=== PATIENT | male | born 1930 | race Caucasian/White ===

== ENCOUNTER 2016-09-23 08:04 | Inpatient (IN) | payer MEDICARE, BC ==
--- NOTE | 2016-09-23 08:18 | Emergency Department Record ---
History of Present Illness - General Chief complaint: Weakness Stated complaint: WEAKNESS Time Seen by Provider: 09/23/16 08:16 Source: Patient Mode of Arrival: EMS Limitations: No limitations - History of Present Illness Initial comments: The patient is here due to feeling generalized weakness and no energy for one day since mowing the lawn yesterday. He denies any recent illness or any fall or trauma. He also denies any CP, SOB, SONIA, AP, fever, nausea, vomiting, or dysuria. The patient denies any new medicines, or any pain or discomfort. MD Complaint: Generalized weakness, Lack of energy Onset/Timin -: Days(s) Location: Generalized Associated Symptoms: Denies other symptoms - [place] Coma Scale Eye Response: (4) Open spontaneously Motor Response: (6) Obeys commands Verbal Response: (5) Oriented Sunday Total: 15 - Related Data Home Medications Medication Instructions Recorded Confirmed Last Taken Amlodipine Besylate [Norvasc] 5 mg PO DAILY 09/07/15 09/23/16 09/23/16 Clopidogrel Bisulfate [Plavix] 75 mg PO DAILY 09/07/15 09/23/16 09/23/16 Levothyroxine Sodium [Synthroid] 100 mcg PO DAILY 09/07/15 09/23/16 09/23/16 Lisinopril [Zestril] 20 mg PO DAILY 09/07/15 09/23/16 09/22/16 Aspirin [Aspirin EC] 81 mg PO DAILY 09/23/16 09/23/16 09/23/16 Atorvastatin Calcium [Lipitor] 40 mg PO DAILY 09/23/16 09/23/16 09/23/16 Timolol [Betimol] 5 ml OP DAILY 09/23/16 09/23/16 09/23/16 Allergies Allergy/AdvReac Type Severity Reaction Status Date / Time No Known Drug Allergies Allergy Verified 09/09/15 17:27 Travel Screening - Travel/Exposure Within Last 30 Days Have you traveled within the last 30 days?: No - Travel/Exposure Within Last Year Have you traveled outside the [place] in the last year?: No - Additonal Travel Details Have you been exposed to anyone with a communicable illness?: No - Travel Symptoms Symptom Screening: None Review of Systems Constitutional: Reports: Malaise. Denies: Chills, Fever Eyes: Denies: Eye discharge ENT: Denies: Congestion Respiratory: Denies: Cough, Dyspnea Cardiovascular: Denies: Chest pain Endocrine: Reports: Fatigue Gastrointestinal: Denies: Abdominal pain, Diarrhea, Nausea, Vomiting Genitourinary: Denies: Dysuria Musculoskeletal: Denies: Arthralgia Skin: Denies: Bruising Past Medical History - SOCIAL HISTORY Smoking Status: Never smoker - RESPIRATORY Hx Respiratory Disorders: No - CARDIOVASCULAR Hx Cardio Disorders: Yes Hx Abnormal EKG: Yes Hx Heart Attack: Yes Hx Hypertension: Yes - NEURO Hx Neuro Disorders: No - GI Hx GI Disorders: No - Hx Genitourinary Disorders: No - ENDOCRINE Hx Endocrine Disorders: No - MUSCULOSKELETAL Hx Musculoskeletal Disorders: Yes Hx Arthritis: Yes - PSYCH Hx Psych Problems: No - HEMATOLOGY/ONCOLOGY Hx Hematology/Oncology Disorders: No Family Medical History Any Significant Family History?: No Physical Exam - General General Appearance: Alert, Oriented x3, Cooperative, No acute distress - Head Head exam: Atraumatic, Normocephalic, Normal inspection - Eye Eye exam: Normal appearance, PERRL - ENT Throat exam: Normal inspection. negative: Tonsillar erythema, Tonsillar exudate - Neck Neck exam: Normal inspection, Full ROM. negative: Tenderness - Respiratory Respiratory exam: Normal lung sounds bilaterally. negative: Respiratory distress - Cardiovascular Cardiovascular Exam: Regular rate, Normal rhythm, Normal heart sounds - GI/Abdominal GI/Abdominal exam: Soft, Normal bowel sounds. negative: Tenderness - Extremities Extremities exam: Normal inspection, Full ROM, Normal capillary refill. negative: Tenderness - Back Back exam: Reports: Normal inspection - Neurological Neurological exam: Abnormal gait (The patient is not able to get up and walk without falling.), Alert, Motor sensory deficit (There is no weakness on exam but there is mild abnormal finger to nose examinations with the L arm.). negative: Altered, Normal gait Course Vital Signs 09/23/16 08:08 Temperature 97.7 F Pulse Rate 60 Respiratory 20 Rate Blood Pressure 141/63 Pulse Ox 98 - Reevaluation(s) Reevaluation #1: The patient is doing better. He denies any pain or discomfort. On exam he is still unable to walk and feels very unsteady. 09/23/16 10:03 Reevaluation #2: The patient is doing very well at this time but he is still unable to walk without falling. 04/24/17 10:11 Reevaluation #3: The patient denies any new issues or problems. I did discuss the case with Lizeth VELASQUEZ) and she does accept the patient to the hospital for Dr. Ames. 09/23/16 11:13 Medical Decision Making - Data Complexity MDM Data: Labs Ordered and/or Reviewed, X-Ray Ordered and/or Reviewed - Lab Data Result diagrams: 09/23/16 09:17 09/23/16 08:37 - EKG Data -: EKG Interpreted by Me EKG: No Acute Changes, Unchanged From Previous - Radiology Data Radiology results: Report reviewed (CXR: No acute changes. Head CT: No acute changes.) Disposition Disposition: Admit Clinical Impression: Acute CVA (cerebrovascular accident) Disposition: Still a Patient at [facility] Decision to Admit: Admit from ER Decision to Admit Date: 09/23/16 Decision to Admit Time: 11:14 Accepting Physician: Hui Time Discussed w/Accepting Physician: 11:14 Condition: (1) Good Time of Disposition: 11:14
[2016-09-23] MEDS ORDERED: 0.9 % SODIUM CHLORIDE 1,000 ML BAG IV ONE (08:34)
[2016-09-23 09:22] LABS: BASO % 0.5 % (0-6); GRAN % 49.6 % (47-80); HEMATOCRIT 36.4 % (42.0-52.0); HEMOGLOBIN 12.3 gm/dl (14.0-18.0); LYMPH % 28.2 % (16-45); MEAN CELL VOLUME 93.1 fl (81-97); MEAN CORPUSCULAR HEMOGLOBIN 31.4 pg (27-33); MEAN CORPUSCULAR HGB CONC 33.8 g/dl (32-36); MEAN PLATELET VOLUME 9.4 fl (7.4-10.4); MONO % 14.7 % (0-9); PLATELET COUNT 228 K/uL (130-400); RED BLOOD COUNT 3.91 M/uL (4.40-5.70); RED CELL DISTRIBUTION WIDTH 12.8 % (11.5-14.5); WHITE BLOOD COUNT W/O DIFF 6.6 K/uL (4.2-12.2)
[2016-09-23 09:39] LABS: BLOOD UREA NITROGEN 16 mg/dL (9-20); CREATININE 0.8 mg/dL (0.66-1.25); EST GLOMERULAR FILTRATION RATE > 60 ml/min; GLUCOSE,RANDOM 99 mg/dL (70-110)
[2016-09-23 09:39] LABS: URINE APPEARANCE CLEAR; URINE BILIRUBIN NEGATIVE (NEGATIVE); URINE BLOOD NEGATIVE (NEGATIVE); URINE COLOR YELLOW; URINE GLUCOSE (UA) NEGATIVE (NEGATIVE); URINE KETONE NEGATIVE (NEGATIVE); URINE LEUKOCYTE ESTERASE NEGATIVE (NEGATIVE); URINE NITRITE NEGATIVE (NEGATIVE); URINE PROTEIN NEGATIVE (NEGATIVE); URINE UROBILINOGEN 0.2 E.U./dL (0.20 - 1.00)
[2016-09-23 09:49] LABS: CKMB < 0.2 ug/L (0-6)
[2016-09-23 09:50] LABS: TROPONIN I < 0.012 ng/mL (0.00-0.034)
[2016-09-23 09:56] LABS: CREATINE PHOSPHOKINASE 42 U/L (55-170)
[2016-09-23] MEDS ORDERED: ASPIRIN 325 MG TABLET PO ONE (10:55)
--- NOTE | 2016-09-23 13:25 | History & Physical ---
History of Present Illness - Date of Service Date of Service for History & Physical: 09/23/16 - History of Present Illness Admitting Diagnosis: 1. Generalized weakness with inability to walk, R/O CVA. History of Present Illness: 86 yo male admitted for ataxia. PMHx of HTN, hypothyroidism, high cholesterol, [place] 30 years ago (s/p stent), BPH, and CVA w/o deficits about 10 years ago. History was obtained from patient who is A&Ox3. Patient presented to the ED by EMS due to generalized weakness and inability to ambulate. Onset was this morning. Patient states he cut a few acres of his lawn last night. He felt well until he woke up this morning. Unknown aggravating factors. Alleviated by nothing. Associated symptoms include headache last night and this morning. Upon presentation, VSS. WBC 6.6, hgb 12.3 , hct 36.4, plt 228. CMP relatively unremarkable. CE's negative x 1. UA unremarkable. EKG: sinus rhythm, unchanged from 2012. CXR: NAP. Head CT: generalized atrophy, o/w negative. Bolus of IVs given in the ER along with 325 mg of ASA. Patient admitted for further medical management. This afternoon, patient sitting up in bed eating lunch. He denies any concerns at this time. States he's still unable to stand up due to abnormal gait and balance. He denies any confusion, vision change, feeling like the room's spinning, abdominal pain, change in bowel habits, blood in stool, n/v, fever, chills, CP, SOB, cough, lightheadedness, dizziness or headache. States he experienced a headache last night and then earlier this morning. He denies any hospitalizations w/in the past 6 months. He saw his PCP on 09/19/16. No recent travel, sick contacts or changes to medications. Lives independently. Denies recent falls. He uses a cane at home. Has family in [place], though not close by. States he believes he had a stroke about 10 years ago. 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 14:00: patient ambulated to the restroom w/ walker and two person assist. He felt as if his balance had improved with use of the walker. PCP: Dr. Negrete. Travel Screening - Travel/Exposure Within Last 30 Days Have you traveled within the last 30 days?: No - Travel/Exposure Within Last Year Have you traveled outside the [place] in the last year?: No - Additonal Travel Details Have you been exposed to anyone with a communicable illness?: No - Travel Symptoms Symptom Screening: None Review of Systems Constitutional: Reports: Malaise. Denies: Chills, Fever Eyes: Denies: Eye discharge ENT: Denies: Congestion Respiratory: Denies: Cough, Dyspnea Cardiovascular: Denies: Chest pain Endocrine: Reports: Fatigue Gastrointestinal: Denies: Abdominal pain, Diarrhea, Nausea, Vomiting Genitourinary: Denies: Dysuria Musculoskeletal: Denies: Arthralgia Skin: Denies: Bruising Neurological: Reports: Abnormal gait, Weakness. Denies: Confusion, Headache, Vertigo Past Medical History - SOCIAL HISTORY Smoking Status: Never smoker - RESPIRATORY Hx Respiratory Disorders: No - CARDIOVASCULAR Hx Cardio Disorders: Yes Hx Abnormal EKG: Yes Hx Heart Attack: Yes Hx Hypertension: Yes - NEURO Hx Neuro Disorders: No - GI Hx GI Disorders: No - Hx Genitourinary Disorders: No - ENDOCRINE Hx Endocrine Disorders: No - MUSCULOSKELETAL Hx Musculoskeletal Disorders: Yes Hx Arthritis: Yes - PSYCH Hx Psych Problems: No - HEMATOLOGY/ONCOLOGY Hx Hematology/Oncology Disorders: No Family Medical History Any Significant Family History?: No H&P Meds/Allergies - Allergies Allergies: Allergies Allergy/AdvReac Type Severity Reaction Status Date / Time No Known Drug Allergies Allergy Verified 09/09/15 17:27 - Home Medications Home Medications Medication Instructions Recorded Confirmed Last Taken Amlodipine Besylate [Norvasc] 5 mg PO DAILY 09/07/15 09/23/16 09/23/16 Clopidogrel Bisulfate [Plavix] 75 mg PO DAILY 09/07/15 09/23/16 09/23/16 Levothyroxine Sodium [Synthroid] 100 mcg PO DAILY 09/07/15 09/23/16 09/23/16 Lisinopril [Zestril] 20 mg PO DAILY 09/07/15 09/23/16 09/22/16 Aspirin [Aspirin EC] 81 mg PO DAILY 09/23/16 09/23/16 09/23/16 Atorvastatin Calcium [Lipitor] 40 mg PO DAILY 09/23/16 09/23/16 09/23/16 Timolol [Betimol] 5 ml OP DAILY 0409/23/16 09/23/16 - Active Medications Active Medications: Current Medications Acetaminophen (Tylenol 500mg Tab) 500 mg PO Q6H PRN PRN Reason: PAIN/TEMP Amlodipine Besylate (Norvasc) 5 mg PO BID [facility] Aspirin (Aspirin, Regular) 325 mg PO DAILY [facility] Atorvastatin Calcium (Lipitor) 40 mg PO QHS [facility] Clopidogrel Bisulfate (Plavix) 75 mg PO DAILY [facility] Latanoprost (Xalatan) 1 drop OPTH QHS [facility] Levothyroxine Sodium (Synthroid) 100 mcg PO DAILYTHY [facility] Lisinopril (Zestril) 20 mg PO DAILY [facility] Timolol Maleate (Timoptic) 1 drop OPTH DAILY [facility] Physical Exam - Vital Signs Vital Signs: Vital Signs - Last 24 Hrs Resp 09/23/16 12:35 20 - General General Appearance: Alert, Oriented x3, Cooperative, No acute distress Limitations: No limitations - Head Head exam: Atraumatic, Normocephalic, Normal inspection - Eye Eye exam: Normal appearance, PERRL - ENT Throat exam: Normal inspection. negative: Tonsillar erythema, Tonsillar exudate - Neck Neck exam: Normal inspection, Full ROM. negative: Tenderness - Respiratory Respiratory exam: Normal lung sounds bilaterally. negative: Respiratory distress - Cardiovascular Cardiovascular Exam: Regular rate, Normal rhythm, Normal heart sounds - GI/Abdominal GI/Abdominal exam: Soft, Normal bowel sounds. negative: Tenderness - Extremities Extremities exam: Normal inspection, Full ROM, Normal capillary refill. negative: Tenderness - Back Back exam: Reports: Normal inspection - Neurological Neurological exam: Abnormal gait (balance is good with walker and 2 person assist), Alert, Motor sensory deficit (There is no weakness on exam but there is mild abnormal finger to nose examinations with the L arm.). negative: Altered, Normal gait Results - Labs Result Diagrams: 09/23/16 09:17 09/23/16 08:37 VTE H&P Assessment - Risk for VTE Risk for VTE: Yes Risk Level: High (age, decreased mobility and potential CVA) Risk Assessment Date: 09/23/16 Risk Assessment Time: 13:00 VTE Orders Placed or Will Be Placed: Yes Plan - Inpatient Certification Inpatient Certification: Admit to inpatient care: Based on my medical assessment, after consideration of patient's risk factors (age, co-morbidities and patient presenting symptoms and acuity), I expect that this patient will remain in the hospital greater than or equal to two midnights and that the services needed warrant inpatient care because: Patient Risk Factors: [unable to ambulate, abnormal neurologic exam, weakness] Estimated length of stay: [48-72 hours] The patient may reasonably be expected to be discharged or transferred to a hospital within 96 hours after admission to [facility]. Services needed: [therapy, nursing, cardiac work up, telemetry] Post hospital care (if known): [inpatient rehab] I certify that my determination is in accordance with my understanding of Medicare requirements for reasonable and necessary inpatient services. 09/23/16 13:37 - Detailed Diagnosis and Plan (1) Weakness Current Visit: Yes Status: Acute Base Code: R53.1 - WEAKNESS Comment: 09/23/16: suspected acute cerebrovascular accident. Head CT negative. CE's negative x 1. EKG sinus rhythm, unchanged from 2012. Patient denying CP, SOB, confusion, fever, chills, upper/lower extremity weakness, vision changes, or room spinning. Patient unable to ambulate due to poor balance. Neurologic exam relatively unremarkable aside from abnormal gait. - continue home meds - ambulation as tolerated with walker and 2 person assist - PT/OT evaluation ordered - carotid dopplers & ECHO ordered (2) Acute CVA (cerebrovascular accident) Current Visit: Yes Status: Acute Base Code: I63.9 - CEREBRAL INFARCTION, UNSPECIFIED Comment: 09/23/16: suspected acute cerebrovascular accident. Head CT negative. CE's negative x 1. EKG sinus rhythm, unchanged from 2012. Patient denying CP, SOB, confusion, fever, chills, upper/lower extremity weakness, vision changes, or room spinning. Patient unable to ambulate due to poor balance. Neurologic exam relatively unremarkable aside from abnormal gait. - continue home meds - ambulation as tolerated with walker and 2 person assist - PT/OT evaluation ordered - carotid dopplers and ECHO ordered (3) DVT prophylaxis Current Visit: Yes Status: Acute Base Code: [id number] - Comment: 09/23/16: high risk: age, decreased mobility, possible CVA. patient ambulating to the rest room. received 325 mg of ASA in the ED. Will consider 40 mg of sq Lovenox daily if patient becomes less active. (4) Full code status Current Visit: Yes Status: Acute Base Code: Z78.9 - OTHER SPECIFIED HEALTH STATUS Comment: 09/23/16: patient will remain full code during his stay
[2016-09-23 13:41] LABS: CKMB < 0.2 ug/L (0-6); TROPONIN I < 0.012 ng/mL (0.00-0.034)
[2016-09-23] MEDS: ATORVASTATIN 20 MG TABLET PO SCH (22:00)
[2016-09-23] MEDS: AMLODIPINE BESYLATE 5MG TAB PO SCH (22:15)
[2016-09-23 23:12] LABS: CKMB < 0.2 ug/L (0-6); TROPONIN I < 0.012 ng/mL (0.00-0.034)
[2016-09-23] MEDS: LATANOPROST 0.005% OPTH SOLUTION 2.5ML BOTTLE OPTH SCH (23:57)
[2016-09-24] MEDS: LEVOTHYROXINE SODIUM 100 MCG TABLET PO SCH (06:48)
--- NOTE | 2016-09-24 07:13 | RADIOLOGY REPORT ---
EXAM: CHEST, TWO VIEWS HISTORY: GENERALIZED WEAKNESS AND DIFFICULTY IN BREATHING. PRIOR CORONARY ARTERY BYPASS GRAFT SURGERY. TECHNIQUE: Upright PA and lateral views of the chest were obtained. Comparison: None. FINDINGS: Post median sternotomy changes are identified. The heart is not enlarged and the pulmonary vasculature is nondilated. The lungs and pleural spaces are clear. There are degenerative changes of the visualized spine and shoulder girdles. IMPRESSION: 1. POST MEDIAN STERNOTOMY. 2. NO EVIDENCE OF ACUTE CARDIOPULMONARY DISEASE. JOB NUMBER: [id number] [facility]
--- NOTE | 2016-09-24 07:19 | CT SCAN REPORT ---
EXAM: CT OF THE HEAD WITHOUT CONTRAST HISTORY: LEFT SIDED WEAKNESS. DIZZINESS. ATAXIA. TECHNIQUE: Routine noncontrast CT examination of the head was obtained. Comparison: None. Hand dominance: Right. FINDINGS: Moderate dilatation of the subarachnoid spaces is demonstrated associated with mild ventriculomegaly. Moderate periventricular and subcortical white matter lucencies are scattered in each cerebral hemisphere, symmetrically distributed. No other area of abnormally increased or decreased attenuation is noted throughout the brain substance. No abnormal extraaxial fluid collection nor skull fracture is seen. There is atherosclerotic calcification of the distal internal carotid arteries and distal right vertebral artery. The visualized paranasal sinuses and mastoid air cells are clear. Post cataract surgery changes are noted bilaterally. The orbits are otherwise unremarkable. IMPRESSION: 1. NO CT EVIDENCE OF ACUTE MAJOR VESSEL INFARCT, INTRACRANIAL HEMORRHAGE, NOR MASS. 2. GENERALIZED ATROPHY. MODERATE WHITE MATTER LUCENCIES IN EACH CEREBRAL HEMISPHERE ARE NONSPECIFIC THOUGH LIKELY AREAS OF CHRONIC SMALL VESSEL ISCHEMIA. JOB NUMBER: [id number] [facility]
--- NOTE | 2016-09-24 07:26 | US CAROTID DOPPLER REPORT ---
EXAM: BILATERAL CAROTID DOPPLER ULTRASOUND HISTORY: DIZZINESS. TECHNIQUE: Transverse and longitudinal sonographic images of the cervical portions of the bilateral internal carotid arteries was performed. COMPARISON: None. FINDINGS: Imaging over the right ICA and distal CCA demonstrates moderate visible atheromatous calcification of the distal right CCA and carotid bifurcation. Imaging over the left demonstrates mild visible atheromatous calcification of the distal left ICA and left carotid bifurcation. No visible areas of severe stenosis. Doppler and spectral analysis with color flow was utilized. Biphasic and triphasic waveforms are present bilaterally. Normal antegrade flow in the vertebral arteries bilaterally. Velocities are as follows (in peak systolic velocity): Right ICA: 88 cm/s Right CCA: 145 cm/s Right vertebral artery: 50 cm/s Right ICA/CCA ratio: 0.6 Left ICA: 77 cm/s Left CCA: 85 cm/s Left vertebral artery: 34 cm/s Left ICA/CCA ratio: 0.9 IMPRESSION: ATHEROMATOUS CHANGES ARE VISIBLE BILATERALLY, WORSE ON THE RIGHT. VELOCITIES OF THE INTERNAL CAROTID ARTERIES CORRESPOND TO LESS THAN 50% LUMINAL NARROWING BILATERALLY. JOB NUMBER: [id number] [facility]
[2016-09-24] MEDS ORDERED: AMLODIPINE BESYLATE 5MG TAB PO SCH (10:00)
--- NOTE | 2016-09-24 10:07 | Rehab Evaluation ---
Patient Information - Patient Information Diagnosis: generalized weakness, inability to walk, r/o CVA Ordered Treatment: OT Evaluate and Treat Status: Initial Evaluation Surgery: No History: Detail (Pt presented to the ED on 09/23/16 with c/o generalized weakness and no energy x 1 day since mowing the lawn the previous day.) Past Medical/Surgical Hx: PAST MEDICAL/SURGICAL HISTORY Past Surgical History heart bypass, stents PMH - Respiratory Hx Respiratory Disorders No PMH - Cardiovascular Hx Cardiovascular Disorders Yes Hx Abnormal EKG Yes Hx Heart Attack Yes Hx Hypertension Yes Comment: stents, bipass surgery PMH - Neuro Hx Neurological Disorders No PMH - GI Hx Gastrointestinal Disorders No PMH - Hx Genitourinary Disorders No Patient PMH - Endocrine Hx Endocrine Disorders No PMH - Musculoskeletal Hx Musculoskeletal Disorders Yes Hx Arthritis Yes PMH - Psych Hx Psychiatric Problems No PMH - Hematology/Oncology Hx Hematology/Oncology No Disorders Premorbid Status: Detail (Pt lives alone in a one story house. He has 3-4 steps at the entrance with one handrailing. He has a tub/shower combination but usually sponge bathes at the sink. He has a standard height toilet, no grab bar. He uses a quad cane and has a 2 wheeled walker. He is responsible for all home mgmt, meal prep, laundry and yard work.) Precautions: [place], Fall - Time With Patient Total Time Spent With Patient (Min): 40 Treatment Procedures: Detail (OT eval moderate complexity) Subjective Information - Subjective Information Per Patient Objective Data - Pain Pain Present: No - Mental Status Patient Orientation: Oriented x3 - Visual Perception Appears within normal limits for therapeutic activities (Pt wears glasses for reading.) - ROM Within normal limits (Pardeep UE AROM WNL) - Strength/Tone Within normal limits (Pardeep UE MMT 4+/5 throughout) - Coordination Appears within normal limits for therapeutic activities (Fingertip to thumb opposition equal in pardeep hands.) - Bed Mobility Independent (Ind with supine to sit although pt had mild difficulty.) - Transfers Needs Assist (Contact guard assist for sit to stand transfer from EOB.) - Balance Balance Sitting: Fair (Pt leaning to the rear while sitting EOB.) Balance Standing: Good - Sensation Intact (No numbness reported in pardeep UEs.) - Gait Detail (Pt amb in hallway with 2 wheeled walker and CG assist x 1.) - ADL's/IADL's Detail (Pt reports he is toileting with nursing supervision. Other ADLs not formally assessed.) Therapy Assessment - Therapy Assessment Detail (Pt presents with decreased endurance, impaired sitting balance, decreased Ind with self care activities.) Problem List - Problem List Occupational Therapy Problem List: Detail (1. Decreased Ind with self care activities 2. Decreased sitting balance 3. Decreased endurance needed for safe and Ind ADLs/IADLs.) Goals - Goals Occupational Therapy Goals: 1. Pt will be safe and Ind with total body dressing 2. Pt will demonstrate good sitting balance needed for ADLs 3. Pt will demonstrate improved endurance needed for safe and Ind ADLs/IADLs. Prognosis - Prognosis Good Plan - Plan Occupational Therapy Plan: OT 1-4 times per week to address endurance, balance, ADLs/IADLs needed for safe return home. Pt would benefit from short IP rehab stay to maximize safety and Ind.
[2016-09-24] MEDS: ASPIRIN 325 MG TABLET PO SCH (10:12)
[2016-09-24] MEDS: LISINOPRIL 20 MG TABLET PO SCH (10:13)
[2016-09-24] MEDS: CLOPIDOGREL 75MG TABLET PO SCH (10:13)
[2016-09-24] MEDS: TIMOLOL MALEATE 0.5% 5ML BTL OPTH SCH (10:13)
[2016-09-24] MEDS: AMLODIPINE BESYLATE 5MG TAB PO SCH ×2 (10:20→22:31)
--- NOTE | 2016-09-24 10:40 | Rehab Evaluation ---
Patient Information - Patient Information Diagnosis: generalized weakness, inability to walk, r/o CVA Ordered Treatment: PT Evaluate and Treat Status: Initial Evaluation Surgery: No History: Detail (Pt presented to the ED on 09/23/16 with c/o generalized weakness and no energy x 1 day since mowing the lawn the previous day.) Past Medical/Surgical Hx: PAST MEDICAL/SURGICAL HISTORY Past Surgical History heart bypass, stents PMH - Respiratory Hx Respiratory Disorders No PMH - Cardiovascular Hx Cardiovascular Disorders Yes Hx Abnormal EKG Yes Hx Heart Attack Yes Hx Hypertension Yes Comment: stents, bipass surgery PMH - Neuro Hx Neurological Disorders No PMH - GI Hx Gastrointestinal Disorders No PMH - Hx Genitourinary Disorders No Patient PMH - Endocrine Hx Endocrine Disorders No PMH - Musculoskeletal Hx Musculoskeletal Disorders Yes Hx Arthritis Yes PMH - Psych Hx Psychiatric Problems No PMH - Hematology/Oncology Hx Hematology/Oncology No Disorders Premorbid Status: Detail (Pt lives alone in a one story house. He has 3-4 steps at the entrance with one handrailing. He has a tub/shower combination but usually sponge bathes at the sink. He has a standard height toilet, no grab bar. He uses a quad cane and has a 2 wheeled walker. He is responsible for all home mgmt, meal prep, laundry and yard work.) Social History: Detail (The patient has family but no one who lives close.) Precautions: [place], [place] - Time With Patient Total Time Spent With Patient (Min): 30 Treatment Procedures: Detail (Initial Evaluation) Subjective Information - Subjective Information Per Patient (The patient had some complaints R hip /SI region pain which he has had in the past. The patient did not rate his pain using the 0 to 10 pain scale. ) Objective Data - Mental Status Patient Orientation: Oriented x3 - ROM Within normal limits (The patient's LE AROM was WFL. Refer to OT note for UE ROM.) - Strength/Tone Not within normal limits (The patient's LE strength was as follows: hip flexors L 3+/5, R 4/5, hip abductors and adductors seated L 4-/5, R 4/5, bilateral knee musculature 4 to 4+/5, ankle musculature L 3+/5, R 4/5. Isolated control was present all 4 extremities and trunk.) - Coordination Appears within normal limits for therapeutic activities (RA), Deficit (The patient exhibited decreased speed in ONUR's L LE with marching and toe taps.) - Bed Mobility Independent (The patient was independent with supine to sit transfer, however movements were slow and the patient had difficulty moving L LE .) - Transfers Independent (The patient was independent with sit to and from stand transfer.) - Balance Balance Sitting: Fair (The patient was able to sit without support , however the patient leaned posterior when lifting arms or legs during ROM and strength testing. The patient had decreased posterior balance reactions with preturbations.) Balance Standing: Fair (The patient was able to stand without support with wide base of support. Decreased balance reactions were noted with preturbations posterior and to the L. Increased postural sway was noted with eyes closed.) - Gait Detail (The patient ambulated with wheeled walker with CG for safety a distance of 80 feet x 1. The patient's gait pattern was charecterized by increased toeing out bilaterally and L foot drag on the L. The patient was able to clear L foot when cued.) - Special Tests Yes (Muscle tone: Mild increased tone was note in L LE level 1 on Cassandra scale.) Therapy Assessment - Therapy Assessment Detail (The patient exhibits deficits with both sitting and standing balance, LE weakness, mild increased L LE increased tone . The patient exhibited gait deviations with L LE related due to L LE weakness and mild increased tone . The patient required CG for safety with ambulation. The patient is a good inpatient / subacute rehab candidate for continued therapy to return to previous functional level.) Problem List - Problem List Physical Therapy Problem List: Detail (1) Decreased balance in standing and sitting. 2) L LE weakness and increased L LE tone 3) Gait deviations (L foot drag) 4) CG with ambulation 5) Decreased endurance with physical activity.) Occupational Therapy Problem List: Detail (1. Decreased Ind with self care activities 2. Decreased sitting balance 3. Decreased endurance needed for safe and Ind ADLs/IADLs.) Goals - Goals Physical Therapy Goals: 1) Assess the patient's balance using standarized balance tests. 2) The patient will ambulate independently with wheeled walker a distance of 200 feet with improved gait pattern. ie: decreased L foot drag. 3) Increase LE strength 1/3 muscle grade. 4) The patient will tolerate 30 to 45 minutes of physical activity with 1 to 2 rest periods. 5) The patient will be independent with all transfers. Occupational Therapy Goals: 1. Pt will be safe and Ind with total body dressing 2. Pt will demonstrate good sitting balance needed for ADLs 3. Pt will demonstrate improved endurance needed for safe and Ind ADLs/IADLs. Prognosis - Prognosis Good Plan - Plan Physical Therapy Plan: PT daily M-F for gait training, transfer training, balance exercises, LE strengthening exercises, neuromuscular education. Occupational Therapy Plan: OT 1-4 times per week to address endurance, balance, ADLs/IADLs needed for safe return home. Pt would benefit from short IP rehab stay to maximize safety and Ind.
[2016-09-24] MEDS ORDERED: POLYETHYLENE GLY 17 GM PACKET PO ONE (16:54)
--- NOTE | 2016-09-24 21:09 | Physician Progress Note ---
Subjective - Date Date of Physician Progress Note: 09/24/16 - Subjective Subjective Comment: worked with therapy today, reports feels a bit stronger but not anywhere near his previous independent walking with a cane. Does note about 2-3 months ago noticed he was getting unsteady with walking and his physician prescribed a cane which was working well for him at home until this recent episode leading to admission. Denies headache, numbness, tingling, vision changes. Complaining of urinary frequency last night, has seen Dr HANNA Dexter in the past for enlarged prostate and thinks he used to take a medication for it but is not taking currently, is unable to recall name. Also reporting frequent loose stools with last BM "days before admission". Continues to be a poor historian, having word finding difficulty, garbled speech at times. 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 Does not currently see a neurologist Objective - Vital Signs Vital Signs: Vital Signs - Last 24 Hrs Temp Pulse Resp BP Pulse Ox 09/24/16 14:00 97.6 F 56 L 18 135/66 98 09/24/16 10:00 97.7 F 61 16 119/58 94 L 09/24/16 06:00 98.5 F 59 L 18 143/75 97 09/24/16 00:00 97.7 F 60 18 154/68 96 - General General Appearance: Alert, Oriented x3, Cooperative, No acute distress Limitations: No limitations, Other (garbled speech, poor historian, word finding difficulties, weak voice) - Head Head exam: Atraumatic, Normocephalic, Normal inspection - Eye Eye exam: Normal appearance, PERRL, EOMI Pupils: Normal accommodation - ENT Throat exam: Normal inspection. negative: Tonsillar erythema, Tonsillar exudate - Neck Neck exam: Normal inspection, Full ROM. negative: Tenderness - Respiratory Respiratory exam: Normal lung sounds bilaterally. negative: Respiratory distress - Cardiovascular Cardiovascular Exam: Regular rate, Normal rhythm, Normal heart sounds, Other ( soft right carotid bruit) Peripheral Pulses: 3+: Dorsalis Pedis (R), Dorsalis Pedis (L) - GI/Abdominal GI/Abdominal exam: Distended, Hyperactive bowel sounds (mild tympany). negative : Bruit, Tenderness - Extremities Extremities exam: Normal inspection, Full ROM, Normal capillary refill, Other ( mildly weak right hand quill fixer as compared to left). negative: Tenderness - Back Back exam: Reports: Normal inspection - Neurological Neurological exam: Abnormal gait (balance is good with walker and 2 person assist), Alert, Motor sensory deficit (There is no weakness on exam but there is mild abnormal finger to nose examinations with the L arm.), Oriented X3, Other (mild right sided tongue deviation). negative: Altered, Normal gait - Psychiatric Psychiatric exam: Normal affect, Normal mood Assessment and Plan - Assessment and Plan (1) Weakness Current Visit: Yes Status: Acute Base Code: R53.1 - WEAKNESS Comment: 09/24/16: suspected acute cerebrovascular accident although head CT negative. CE's negative x 1. EKG sinus rhythm, unchanged from 2013. Patient denying CP, SOB, confusion, fever, chills, upper/lower extremity weakness, vision changes, or room spinning. Etiology unclear at this point cause of sudden onset weakness and headache. Infecious process r/o, head CT negative, ? early PD or other neurological process - continues to be unable to ambulate independently due to poor balance (was using cane at home the last 2-3 months. - Neurologic exam relatively unremarkable aside from abnormal gait with more pronounced weakness to RUE and associated deviation of tongue to right. Noted dysphagic episode with taking pills with water today which is a new finding - Repeat CT head w/o contrast to r/o evolving thrombus due to neuro status changes today - HAND [employer] consult r/o dysphagia. weak voice, word finding difficulty - urine C&S r/o atypical bacterial infection - social work consult for home needs - continue home meds - ambulation as tolerated with walker and 2 person assist - continue PT/OT, may benefit from Swing Bed Program - carotid dopplers- atheromatous changes R>L, less than 50% occlusion bilat - Echo to be complete tomorrow, may need cardiology referral based on results - will contact the family to assist with a full and complete medical history as well as level of previous living abilities (2) Abdominal distension Current Visit: Yes Status: Acute Base Code: R14.0 - ABDOMINAL DISTENSION ( GASEOUS) Comment: 09/24/16- constipation vs. ileus vs. urinary retention - abdominal series stat - Mirilax x 1 dose now to initiate bowel movement - urology consult with Dr Knapp today (3) DVT prophylaxis Current Visit: Yes Status: Acute Base Code: [id number] - Comment: 09/24/16: high risk: age, decreased mobility. patient ambulating to the rest room. received 325 mg of ASA in the ED. Will consider 40 mg of sq Lovenox daily if patient becomes less active. - patiet continue to work with PT and encourage frequent amb with nursing (4) Full code status Current Visit: Yes Status: Acute Base Code: Z78.9 - OTHER SPECIFIED HEALTH STATUS Comment: 09/24/16: patient will remain full code during his stay Results - Labs Result Diagrams: 09/23/16 09:17 09/23/16 08:37 Labs Last 24 Hours: Laboratory Results - last 24 hr 09/23/16 09/24/16 22:40 06:00 CK-MB (CK-2) < 0.2 Troponin I < 0.012 TSH 2.28 DVT/PE Assessment - Risk for VTE Risk for VTE: No Risk Level: High (age, decreased mobility and potential CVA) Risk Assessment Date: 09/23/16 Risk Assessment Time: 13:00 VTE Orders Placed or Will Be Placed: Yes - Active Medicaitons Current Medications: Current Medications Acetaminophen (Tylenol 500mg Tab) 500 mg PO Q6H PRN PRN Reason: PAIN/TEMP Amlodipine Besylate (Norvasc) 5 mg PO BID [facility] Last Admin: 09/24/16 10:20 Dose: 5 mg Aspirin (Aspirin, Regular) 325 mg PO DAILY [facility] Last Admin: 09/24/16 10:12 Dose: 325 mg Atorvastatin Calcium (Lipitor) 40 mg PO QHS [facility] Last Admin: 09/23/16 22:00 Dose: 40 mg Clopidogrel Bisulfate (Plavix) 75 mg PO DAILY [facility] Last Admin: 09/24/16 10:13 Dose: 75 mg Latanoprost (Xalatan) 1 drop OPTH QHS [facility] Last Admin: 09/23/16 23:57 Dose: Not Given [facility]othy[facility] Last Admin: 09/24/16 06:48 Dose: 100 mcg Lisinopril (Zestril) 20 mg PO DAILY [facility] Last Admin: 09/24/16 10:13 Dose: 20 mg Timolol Maleate (Timoptic) 1 drop OPTH DAILY [facility] Last Admin: 09/24/16 10:13 Dose: 1 drop AMI Plan - Labs Result Diagrams: 09/23/16 09:17 09/23/16 08:37
[2016-09-24] MEDS: ATORVASTATIN 20 MG TABLET PO SCH (22:31)
[2016-09-24] MEDS: ACETAMINOPHEN 500 MG TABLET PO PRN (23:45)
[2016-09-25] MEDS: LATANOPROST 0.005% OPTH SOLUTION 2.5ML BOTTLE OPTH SCH ×2 (00:39→21:56)
[2016-09-25] MEDS: LEVOTHYROXINE SODIUM 100 MCG TABLET PO SCH (06:12)
--- NOTE | 2016-09-25 07:06 | Physician Progress Note ---
Subjective - Date Date of Physician Progress Note: 09/25/16 - Subjective Subjective Comment: Denies cough, fever, chills. Reports abdomen is feeling less bloated today. Feels stronger today while walking wither therapy but still complains of persistent weakness outside of baseline, legs "feel like they have lead in them ". Nursing denies any issue with swallowing pills or water. Nursing has contacted daughter and awaiting her arrival for meet and greet. Events over the last 24 hours: Results of abdominal series- abundant amount of stool content, tiny pleural effusion right lung base Repeat head CT- no acute process, small vessel ischemia, atrophy Urology consult complete- bladder scan showing more than 900ml urine in bladder , connelly catheter placed Objective - Vital Signs Vital Signs: Vital Signs - Last 24 Hrs Temp Pulse Resp BP BP Pulse Ox 09/25/16 00:00 98.1 F 68 18 142/68 95 09/24/16 20:00 98.0 F 69 18 139/61 97 09/24/16 14:00 97.6 F 56 L 18 135/66 98 09/24/16 10:00 97.7 F 61 16 119/58 94 L - General General Appearance: Alert, Oriented x3, Cooperative, No acute distress Limitations: No limitations, Other (garbled speech, poor historian, word finding difficulties, weak voice) - Head Head exam: Atraumatic, Normocephalic, Normal inspection - Eye Eye exam: Normal appearance, PERRL, EOMI Pupils: Normal accommodation - ENT Throat exam: Normal inspection. negative: Tonsillar erythema, Tonsillar exudate - Neck Neck exam: Normal inspection, Full ROM. negative: Tenderness - Respiratory Respiratory exam: Normal lung sounds bilaterally. negative: Respiratory distress - Cardiovascular Cardiovascular Exam: Regular rate, Normal rhythm, Normal heart sounds, Other ( soft right carotid bruit) Peripheral Pulses: 3+: Dorsalis Pedis (R), Dorsalis Pedis (L) - GI/Abdominal GI/Abdominal exam: Soft, Normal bowel sounds. negative: Bruit, Distended, Tenderness - exam: Other (connelly catheter draining dark yellow urine) - Extremities Extremities exam: Normal inspection, Full ROM, Normal capillary refill, Other ( mildly weak right hand order entry as compared to left). negative: Tenderness - Back Back exam: Reports: Normal inspection - Neurological Neurological exam: Abnormal gait (balance is good with walker and 2 person assist), Alert, Motor sensory deficit (There is no weakness on exam but there is mild abnormal finger to nose examinations with the L arm.), Oriented X3, Other (mild right sided tongue deviation). negative: Altered, Normal gait - Psychiatric Psychiatric exam: Normal affect, Normal mood Assessment and Plan - Assessment and Plan (1) Weakness Current Visit: Yes Status: Acute Base Code: R53.1 - WEAKNESS Comment: 09/25/16: suspected acute cerebrovascular accident although head CT negative. CE's negative x 1. EKG sinus rhythm, unchanged from 2013. Patient denying CP, SOB, confusion, fever, chills, upper/lower extremity weakness, vision changes, or room spinning. Etiology unclear at this point cause of sudden onset weakness and headache. Carotid dopplers- atheromatous changes R>L , less than 50% occlusion bilat. Overarching infectious process r/o, head CT negative, ? TIA vs. vascular dementia vs. other neurological process. - continues to be unable to ambulate independently due to poor balance (was using cane at home the last 2-3 months. - Neurologic exam relatively unremarkable aside from abnormal gait with more pronounced weakness to RUE and associated deviation of tongue to right. 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 weak voice, word finding difficulty - urine C&S r/o atypical bacterial infection - social work consult for home needs - ambulation as tolerated with walker and 2 person assist - continue PT/OT, may benefit from Swing Bed Program - Echo complete, cardiology consult complete, recommend repeat carotid duplex as outpatient at [facility] - will contact the family to assist with a full and complete medical history as well as level of previous living abilities (2) Abdominal distension Current Visit: Yes Status: Acute Base Code: R14.0 - ABDOMINAL DISTENSION ( GASEOUS) Comment: 09/25/16- constipation vs. ileus vs. urinary retention - abdominal series showing large stool content in colon, no ileus or obstruction. - Mirilax x 1 to initiate bowel movement- moved bowels last night - urology consult with Dr Knapp 09/24- urinary retention, connelly placed and will need to follow up in 1 week (3) DVT prophylaxis Current Visit: Yes Status: Acute Base Code: [id number] - Comment: 09/25/16: high risk: age, decreased mobility. patient ambulating to the rest room. received 325 mg of ASA in the ED. Taking daily ASA and Plavix - patiet continue to work with PT and encourage frequent amb with nursing (4) Urinary retention Current Visit: Yes Status: Acute Base Code: R33.9 - RETENTION OF URINE, UNSPECIFIED Comment: 09/25/16- Dr Knapp consult 09/24 - connelly placed and to remain - follow up either outpatient or inpatient in 1 week - urine draining dark yellow urine, CBC/CMP today to check hydration status - urine C&S pending (5) Full code status Current Visit: Yes Status: Acute Base Code: Z78.9 - OTHER SPECIFIED HEALTH STATUS Comment: 09/25/16: patient will remain full code during his stay Results - Labs Result Diagrams: 09/23/16 09:17 09/23/16 08:37 Labs Last 24 Hours: Laboratory Results - last 24 hr 09/24/16 06:00 TSH 2.28 - Imaging and Cardiology CT scan - head Status: Report reviewed (small vessel ischemic changes, atrophy, no acute process) Abdominal x-ray Status: Report reviewed (abundant stool in colon) DVT/PE Assessment - Risk for VTE Risk for VTE: No Risk Level: High (age, decreased mobility and potential CVA) Risk Assessment Date: 09/23/16 Risk Assessment Time: 13:00 VTE Orders Placed or Will Be Placed: Yes - Active Medicaitons Current Medications: Current Medications Acetaminophen (Tylenol 500mg Tab) 500 mg PO Q6H PRN PRN Reason: PAIN/TEMP Last Admin: 09/24/16 23:45 Dose: 500 mg Amlodipine Besylate (Norvasc) 5 mg PO BID [facility] Last Admin: 09/24/16 22:31 Dose: 5 mg Aspirin (Aspirin, Regular) 325 mg PO DAILY [facility] Last Admin: 09/24/16 10:12 Dose: 325 mg Atorvastatin Calcium (Lipitor) 40 mg PO QHS [facility] Last Admin: 09/24/16 22:31 Dose: 40 mg Clopidogrel Bisulfate (Plavix) 75 mg PO DAILY [facility] Last Admin: 09/24/16 10:13 Dose: 75 mg Latanoprost (Xalatan) 1 drop OPTH QHS [facility] Last Admin: 09/25/16 00:39 Dose: Not Given Levothyroxine Sodium (Synthroid) 100 mcg PO DAILYTHY [facility] Last Admin: 09/25/16 06:12 Dose: 100 mcg Lisinopril (Zestril) 20 mg PO DAILY [facility] Last Admin: 09/24/16 10:13 Dose: 20 mg Timolol Maleate (Timoptic) 1 drop OPTH DAILY [facility] Last Admin: 09/24/16 10:13 Dose: 1 drop AMI Plan - Labs Result Diagrams: 09/23/16 09:17 09/23/16 08:37
--- NOTE | 2016-09-25 07:13 | RADIOLOGY REPORT ---
EXAM: ACUTE ABDOMEN SERIES HISTORY: DISTENTION. TECHNIQUE: Upright view of the chest and supine and erect views of the abdomen were obtained. Comparison: Chest x-ray from 09/23/16. FINDINGS: Stable cardiomegaly and post surgical change. Atheromatous change of the thoracic aorta. Tiny right effusion and/or pleural thickening. The lungs are otherwise clear. Osteopenia. No pneumothorax. Vascular calcifications. Left renal artery stent noted. Nonspecific, nonobstructive bowel gas pattern. Abundant stool in the colon. Degenerative change of the hips and lumbar spine. No free air. IMPRESSION: 1. CARDIOMEGALY. TINY RIGHT PLEURAL EFFUSION. 2. NONSPECIFIC BOWEL GAS PATTERN. ABUNDANT STOOL IN THE COLON. JOB NUMBER: [id number] [facility]
--- NOTE | 2016-09-25 07:16 | CT SCAN REPORT ---
EXAM: CT OF THE BRAIN WITHOUT CONTRAST HISTORY: MENTAL STATUS CHANGE. TECHNIQUE: CT of the brain without contrast was obtained. Comparison: 09/23/16 CT of the brain. FINDINGS: The globes are intact. The paranasal sinuses and mastoid air cells are unremarkable. No displaced or depressed skull fracture. No intra or extraaxial hemorrhage. CT is limited for evaluation of acute infarct. No CT evidence for large or territorial acute infarct. No mass or midline shift. Diffuse atrophy. Small vessel ischemic change. IMPRESSION: ATROPHY. SMALL VESSEL ISCHEMIC CHANGE. JOB NUMBER: [id number] [facility]
[2016-09-25] MEDS: CLOPIDOGREL 75MG TABLET PO SCH (09:30)
[2016-09-25] MEDS: TIMOLOL MALEATE 0.5% 5ML BTL OPTH SCH (09:30)
[2016-09-25] MEDS: AMLODIPINE BESYLATE 5MG TAB PO SCH ×2 (09:30→21:53)
[2016-09-25] MEDS: LISINOPRIL 20 MG TABLET PO SCH (09:30)
[2016-09-25] MEDS: ASPIRIN 325 MG TABLET PO SCH (09:30)
--- NOTE | 2016-09-25 10:25 | Physical Therapy Tx Note ---
Physical Therapy Tx Note - Treatment Note Tolerated: Good Total Time Spent With Patient: 30 Physical Therapy Tx Note: Detail (Pt. was dressed and sitting in chair upon arrival. He reported he was not experiencing pain. Pt. was eager to walk. He was also talkative, however, his voice was soft, with a very slight slurring of words, and it was sometimes unclear concerning topic sequence. Pt. ambulated with fww, gait belt, contact guard (with wc following) approximately 80' Pt. then completed 10 manually resisted left ankle plantar/dorsiflexion reps with 5 " hold and 10 manually resisted knee flexion reps in a seated position. Pt. was challenged with ambulation. He walked very slowly, advancing his left foot with difficulty (almost dragging). He walked approximately 40 feet before he became fatigued and had to rest. After approximately a five-minute rest he returned to his room. Pt. was mildly winded. The pt.'s dorsiflexion was very poor, plantar flexion was poor and hamstring strength was only fair. Plan is to increase ambulation to improve endurance and strengthen his legs. Pt. was returned to his chair with bedside table, water, and call light.) Physical Therapy Problem List: Detail (1) Decreased balance in standing and sitting. 2) L LE weakness and increased L LE tone 3) Gait deviations (L foot drag) 4) CG with ambulation 5) Decreased endurance with physical activity.) Physical Therapy Goals: 1) Assess the patient's balance using standarized balance tests. 2) The patient will ambulate independently with wheeled walker a distance of 200 feet with improved gait pattern. ie: decreased L foot drag. 3) Increase LE strength 1/3 muscle grade. 4) The patient will tolerate 30 to 45 minutes of physical activity with 1 to 2 rest periods. 5) The patient will be independent with all transfers. Prognosis: Good Physical Therapy Plan: PT daily M-F for gait training, transfer training, balance exercises, LE strengthening exercises, neuromuscular education.
--- NOTE | 2016-09-25 11:50 | Medical Records Consult ---
DATE OF CONSULTATION: 09/24/2016 REASON FOR CONSULTATION: Urinary frequency and dysuria. REQUESTING PHYSICIAN: Jonathan Davis M.D. CASE SUMMARY: The patient is a pleasant 86-year-old male who was admitted, for weakness and difficulty ambulating, through the emergency room. I reviewed his medical history in detail. He has no prior urological problems or surgeries and at home he was not taking any urologically relevant medications. He describes having frequent urination as well as nocturia of up to 2 to 3 times a night for the past several months. He denies any gross hematuria. PAST MEDICAL HISTORY: Significant for cardiovascular disease, hyperlipidemia, hypertension, hypothyroidism. PAST SURGICAL HISTORY: Negative for urological surgeries. MEDICATIONS AT HOME: Were reviewed and include: 1. Aspirin. 2. Lipitor. 3. Timolol eye drops. 4. Lisinopril. 5. Levothyroxine. 6. Plavix. 7. Norvasc. ALLERGIES: He has no known drug allergies. SOCIAL HISTORY: Negative x 3. REVIEW OF SYSTEMS: 10+ per the chart. FAMILY HISTORY: Negative for urological problems. PHYSICAL EXAMINATION: VITAL SIGNS: Temperature 97.7. Heart rate 60. Blood pressure 140/63. GENERAL: Currently the patient appears alert, oriented, in no distress. He is conversant and cooperative. NECK: No masses or tenderness with normal range of motion. CHEST: Negative for audible wheezing. ABDOMEN: Soft, nontender. There is some subtle fullness of the suprapubic area, otherwise no appreciable masses. There is no costovertebral angle tenderness. GENTIORUINARY: The phallus is circumcised without any lesions and a normal-appearing urethral meatus. Testes are descended bilaterally without any obvious masses. RECTAL: Normal sphincter tone. Prostate is [id number] enlarged without any significant changes or nodularity. There is no bright red blood per rectum. NEUROLOGIC: There is no focal deficit. The patient does ambulate carefully and slowly with the help of a walker. LABORATORY STUDIES: Revealed a white count of 6, hemoglobin 12, platelets 228,000. BUN 16, creatinine 0.8. Electrolytes were essentially normal. IMAGING: There was no imaging relevant to urological pathology. IMPRESSION: 1. Urinary frequency and dysuria. 2. Difficulty ambulating and weakness. PLAN: I have asked nursing to perform a bladder scan postvoid residual when it is possible to do so. If he is retaining with a residual greater than 150 mL, then we will likely need to place Haile catheter or perform intermittent self-catheterization, depending on capabilities of the unit. Otherwise if his postvoid residual is normal then we could consider starting him on tamsulosin with the assumption that his symptoms are related to BPH. Further evaluation with cystoscopy can be done in the clinic on an outpatient basis if necessary. 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 Thank you for the opportunity to see this very pleasant patient. Please feel free to contact me with any further questions or concerns. CC: Jonathan Davis M.D. TRAVIS
--- NOTE | 2016-09-25 11:55 | Occupational Therapy Tx Note ---
Occupational Therapy Tx Note - Treatment Note Tolerated: Fair Total Time Spent With Patient: 15 (ther activity) Occupational Therapy Treatment Note: Detail (S: Pt up in chair, not interested in completing self care activities, wants to walk. O: Sit to stand and amb 75 feet with 2 wheeled walker and CG assist. Pt continues with shuffling gait left >right side. Pt completed sudheer UE AROM exercises in sitting. He was oriented to place, month, year and birthday. A: Oriented, fatigues easily, shuffling gait continues.) Occupational Therapy Problem List: Detail (1. Decreased Ind with self care activities 2. Decreased sitting balance 3. Decreased endurance needed for safe and Ind ADLs/IADLs.) Occupational Therapy Goals: 1. Pt will be safe and Ind with total body dressing 2. Pt will demonstrate good sitting balance needed for ADLs 3. Pt will demonstrate improved endurance needed for safe and Ind ADLs/IADLs. Prognosis: Good Occupational Therapy Plan: OT 1-4 times per week to address endurance, balance, ADLs/IADLs needed for safe return home. Pt would benefit from short IP rehab stay to maximize safety and Ind.
[2016-09-25 12:06] LABS: BASO % 0.2 % (0-6); EOS % 4.5 % (0-6); GRAN % 58.5 % (47-80); HEMATOCRIT 39.5 % (42.0-52.0); HEMOGLOBIN 13.2 gm/dl (14.0-18.0); LYMPH % 22.9 % (16-45); MEAN CELL VOLUME 93.2 fl (81-97); MEAN CORPUSCULAR HEMOGLOBIN 31.1 pg (27-33); MEAN CORPUSCULAR HGB CONC 33.4 g/dl (32-36); MEAN PLATELET VOLUME 9.4 fl (7.4-10.4); MONO % 13.9 % (0-9); PLATELET COUNT 234 K/uL (130-400); RED BLOOD COUNT 4.24 M/uL (4.40-5.70); RED CELL DISTRIBUTION WIDTH 13.1 % (11.5-14.5)
[2016-09-25 12:18] LABS: ALB/GLOB RATIO 1.3 (1.1-1.8); ALBUMIN 4.3 gm/dL (3.5-5.0); ALKALINE PHOSPHATASE 111 U/L (38-126); ALT/SGPT 30 U/L (21-72); ANION GAP 8.8 (7-16); AST/SGOT 23 U/L (17-59); BILIRUBIN,TOTAL 1.14 mg/dL (0.2-1.3); BLOOD UREA NITROGEN 22 mg/dL (9-20); CARBON DIOXIDE 24.2 mmol/L (22-30); CREATININE 0.8 mg/dL (0.66-1.25); EST GLOMERULAR FILTRATION RATE > 60 ml/min; GLUCOSE,RANDOM 107 mg/dL (70-110); TOTAL PROTEIN 7.5 gm/dL (6.3-8.2)
[2016-09-25] MEDS: ACETAMINOPHEN 500 MG TABLET PO PRN (15:26)
[2016-09-25] MEDS: ATORVASTATIN 20 MG TABLET PO SCH (21:53)
[2016-09-26] MEDS: LEVOTHYROXINE SODIUM 100 MCG TABLET PO SCH (06:30)
--- NOTE | 2016-09-26 07:18 | Physician Progress Note ---
Subjective - Date Date of Physician Progress Note: 09/26/16 - Subjective Subjective Comment: Denies complaint, no new nursing concerns. Objective - Vital Signs Vital Signs: Vital Signs - Last 24 Hrs Temp Pulse Resp BP BP Pulse Ox 09/26/16 04:13 98.1 F 67 22 134/69 95 09/25/16 21:56 98.5 F 65 24 122/63 97 09/25/16 21:00 68 18 09/25/16 18:00 97.7 F 68 14 120/63 97 09/25/16 14:00 97.6 F 66 14 98/51 96 09/25/16 10:00 97.6 F 70 14 108/58 96 09/25/16 09:00 18 - General General Appearance: Alert, Oriented x3, Cooperative, No acute distress Limitations: No limitations, Other (garbled speech, poor historian, word finding difficulties, weak voice) - Head Head exam: Atraumatic, Normocephalic, Normal inspection - Eye Eye exam: Normal appearance, PERRL, EOMI Pupils: Normal accommodation - ENT Throat exam: Normal inspection. negative: Tonsillar erythema, Tonsillar exudate - Neck Neck exam: Normal inspection, Full ROM. negative: Tenderness - Respiratory Respiratory exam: Normal lung sounds bilaterally. negative: Respiratory distress - Cardiovascular Cardiovascular Exam: Regular rate, Normal rhythm, Normal heart sounds, Other ( soft right carotid bruit) Peripheral Pulses: 3+: Dorsalis Pedis (R), Dorsalis Pedis (L) - GI/Abdominal GI/Abdominal exam: Soft, Normal bowel sounds. negative: Bruit, Distended, Tenderness - exam: Other (connelly catheter draining dark yellow urine) - Extremities Extremities exam: Normal inspection, Full ROM, Normal capillary refill, Other ( mildly weak right hand claim taker as compared to left). negative: Tenderness - Back Back exam: Reports: Normal inspection - Neurological Neurological exam: Abnormal gait (balance is good with walker and 2 person assist), Alert, Motor sensory deficit (There is no weakness on exam but there is mild abnormal finger to nose examinations with the L arm.), Oriented X3, Other (mild right sided tongue deviation). negative: Altered, Normal gait - Psychiatric Psychiatric exam: Normal affect, Normal mood Assessment and Plan - Assessment and Plan (1) Weakness Current Visit: Yes Status: Acute Base Code: R53.1 - WEAKNESS Comment: 09/26/16: suspected acute cerebrovascular accident although head CT negative. CE's negative x 1. EKG sinus rhythm, unchanged from 2013. Patient denying CP, SOB, confusion, fever, chills, upper/lower extremity weakness, vision changes, or room spinning. Etiology unclear at this point cause of sudden onset weakness and headache. Carotid dopplers- atheromatous changes R>L , less than 50% occlusion bilat. Overarching infectious process r/o, head CT negative, ? TIA vs. vascular dementia vs. other neurological process. - continues to be unable to ambulate independently due to poor balance (was using cane at home the last 2-3 months. - Neurologic exam relatively unremarkable aside from abnormal gait with more pronounced weakness to RUE and associated deviation of tongue to right. Noted dysphagic episode with taking pills with water 09/24 which is a new finding - Repeat CT head w/o contrast to r/o evolving thrombus due to neuro status changes- results small vessel ischemic changes, atrophy, no acute process - DIRECTOR OF NURSING consult r/o dysphagia. weak voice, word finding difficulty - urine C&S r/o atypical bacterial infection - social work consult for home needs - ambulation as tolerated with walker and 2 person assist - continue PT/OT, would benefit from Swing Bed Program - Echo complete, cardiology consult complete, recommend repeat carotid duplex as outpatient at [facility] - meeting with Marija Mccall 09/25 for discharge planning (2) Abdominal distension Current Visit: Yes Status: Resolved Base Code: R14.0 - ABDOMINAL DISTENSION (GASEOUS) Comment: 09/26/16- constipation vs. ileus vs. urinary retention - abdominal series showing large stool content in colon, no ileus or obstruction. - Mirilax x 1 to initiate bowel movement- moved bowels that night, abominal distention resolved - urology consult with Dr Knapp 09/24- urinary retention, connelly placed and will need to follow up in 1 week (3) DVT prophylaxis Current Visit: Yes Status: Acute Base Code: [id number] - Comment: 09/26/16: high risk: age, decreased mobility. patient ambulating to the rest room. received 325 mg of ASA in the ED. Taking daily ASA and Plavix - patiet continue to work with PT and encourage frequent amb with nursing (4) Full code status Current Visit: Yes Status: Acute Base Code: Z78.9 - OTHER SPECIFIED HEALTH STATUS Comment: 09/26/16: patient will remain full code during his stay (5) Urinary retention Current Visit: Yes Status: Acute Base Code: R33.9 - RETENTION OF URINE, UNSPECIFIED Comment: 09/26/16- Dr Knapp consult 09/24 - connelly placed and to remain - follow up either outpatient or inpatient in 1 week - CBC/CMP unremarkable with mild elevation BUN, Cr normal, nursing to encourage increased fluid intake - urine C&S pending Results - Labs Result Diagrams: 09/25/16 12:01 09/25/16 12:01 Labs Last 24 Hours: Laboratory Results - last 24 hr 09/25/16 09/25/16 12:01 12:01 WBC 8.0 RBC 4.24 L Hgb 13.2 L Hct 39.5 L MCV 93.2 MCH 31.1 MCHC 33.4 RDW 13.1 Plt Count 234 MPV 9.4 Gran % 58.5 Lymphocytes % 22.9 Monocytes % 13.9 H Eosinophils % 4.5 Basophils % 0.2 Sodium 139 Potassium 4.1 Chloride 106 Carbon Dioxide 24.2 Anion Gap 8.8 BUN 22 H Creatinine 0.8 Estimated GFR > 60 Random Glucose 107 Calcium 9.1 Total Bilirubin 1.14 AST 23 ALT 30 Alkaline Phosphatase 111 Total Protein 7.5 Albumin 4.3 Globulin 3.2 Albumin/Globulin Ratio 1.3 DVT/PE Assessment - Risk for VTE Risk for VTE: No Risk Level: High (age, decreased mobility and potential CVA) Risk Assessment Date: 09/23/16 Risk Assessment Time: 13:00 VTE Orders Placed or Will Be Placed: Yes - Active Medicaitons Current Medications: Current Medications Acetaminophen (Tylenol 500mg Tab) 500 mg PO Q6H PRN PRN Reason: PAIN/TEMP Last Admin: 09/25/16 15:26 Dose: 500 mg Amlodipine Besylate (Norvasc) 5 mg PO BID [facility] Last Admin: 09/25/16 21:53 Dose: 5 mg Aspirin (Aspirin, Regular) 325 mg PO DAILY [facility] Last Admin: 09/25/16 09:30 Dose: 325 mg Atorvastatin Calcium (Lipitor) 40 mg PO QHS [facility] Last Admin: 09/25/16 21:53 Dose: 40 mg Clopidogrel Bisulfate (Plavix) 75 mg PO DAILY [facility] Last Admin: 09/25/16 09:30 Dose: 75 mg Latanoprost (Xalatan) 1 drop OPTH QHS [facility] Last Admin: 09/25/16 21:56 Dose: 1 drop Levothyroxine Sodium (Synthroid) 100 mcg PO DAILYTHY [facility] Last Admin: 09/26/16 06:30 Dose: 100 mcg Lisinopril (Zestril) 20 mg PO DAILY [facility] Last Admin: 09/25/16 09:30 Dose: 20 mg Timolol Maleate (Timoptic) 1 drop OPTH DAILY [facility] Last Admin: 09/25/16 09:30 Dose: 1 drop AMI Plan - Labs Result Diagrams: 09/25/16 12:01 09/25/16 12:01
[2016-09-26] MEDS: ACETAMINOPHEN 500 MG TABLET PO PRN (07:49)
[2016-09-26] MEDS: AMLODIPINE BESYLATE 5MG TAB PO SCH (10:14)
[2016-09-26] MEDS: CLOPIDOGREL 75MG TABLET PO SCH (10:15)
[2016-09-26] MEDS: LISINOPRIL 20 MG TABLET PO SCH (10:15)
[2016-09-26] MEDS: ASPIRIN 325 MG TABLET PO SCH (10:15)
[2016-09-26] MEDS: TIMOLOL MALEATE 0.5% 5ML BTL OPTH SCH (10:15)
--- NOTE | 2016-09-26 11:35 | Physical Therapy Tx Note ---
Physical Therapy Tx Note - Treatment Note Tolerated: Fair Total Time Spent With Patient: 30 Physical Therapy Tx Note: Detail (Patient states no new complaints. Patient transferred supine to sit independently. Patient donned pants and shoes with assist. Patient transferred sit to and from stand x2 min assist x1. Patient ambulated 80 feet with wheeled walker CGA x1. Patient transferred sit to supine independently. Patient performed the following exercises: DKTC x15 seconds x3, supine hamstring stretch x15 seconds x2, glut squeezes x5, abdominal isometrics x5, bridges x5, and LTR x3. Patient displayed loss of seated and standing balance with donning pants, required mod assist to regain. Patient displayed increased left foot drag with fatigue during ambulation. Patient reports no increased complaints after treatment. Patient was left supine in bed with call light within reach.) Physical Therapy Problem List: Detail (1) Decreased balance in standing and sitting. 2) L LE weakness and increased L LE tone 3) Gait deviations (L foot drag) 4) CG with ambulation 5) Decreased endurance with physical activity.) Physical Therapy Goals: 1) Assess the patient's balance using standarized balance tests. 2) The patient will ambulate independently with wheeled walker a distance of 200 feet with improved gait pattern. ie: decreased L foot drag. 3) Increase LE strength 1/3 muscle grade. 4) The patient will tolerate 30 to 45 minutes of physical activity with 1 to 2 rest periods. 5) The patient will be independent with all transfers. Prognosis: Good Physical Therapy Plan: PT daily M-F for gait training, transfer training, balance exercises, LE strengthening exercises, neuromuscular education.
--- NOTE | 2016-09-26 12:49 | Speech Therapy Evaluation ---
Speech Therapy Evaluation - Patient Concerns List Patient Concerns: Patient seems unaware of concerns in regards to cognition. - Living & Support Living Situation/Support System: Patient lives alone at home but has some daily support from a neighbor. - Hearing Evaluation Hearing: Pass Hearing Comment: WFL for the purpose of this evaluation. - Vision Evaluation Vision: Glassess Vision Comment: Glasses for reading. Patient mentioned having shots in his right eye in the past and that his left eye functions better than his right. - Expressive Language (Area of Concern) Expressive Language: Phrase Paragraph (Patient utilizes minimal articulation techniques when speaking which was confirmed to be near baseline by grand daughter and familiar therapists from previous therapy recieved here. He is intelligible but requires an active listener.) Cues Needed: Time - Receptive Language (Area of Concern Receptive Language: Basic Receptive Language Comment: Patient asked to duplicate a clock with the time written in and he was able to complete one phase (only the [place] for the perimeter of the clock) with two hands but they were not legible to create a known time. No notation of numbers within the drawing and poor use of space on the page. - Written Expression Written Expression: Icon Recognition Written Expression Comment: Did not test this date. Patient demonstrated an attempt at icon duplication with approximately 25% accuracy. 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 He is unable to plan for moderate complex activities.) - Voice & Motor Speech Voice: Within Normal Limits Intelligibility Percentage at Evaluation: WFL - with active listener. Dysarthria: N/A Apraxia: N/A Aware of Difficulties: No (Patient is not aware of deficits. ) Plan for Treatment - Plan Plan for Treatment: No goals established as patient is returning home today. Recommendation for speech to address remaining cognitive deficits and help to transition patient back home via compensatory strategy training within functional home environment.
--- NOTE | 2016-09-26 13:02 | Discharge Summary ---
Providers Discharge Summary Date: 09/26/16 Date of admission: 09/23/16 11:59 Expected Date of Discharge: 09/26/16 Attending physician: MACHO LANGSTON Primary care physician: Beena Negrete Consults: Consult Orders 09/24/16 10:28 Consult NOW Consulting Provider: MACHO LANGSTON Physician Instructions: Urology consult Reason For Exam: Dysuria 09/24/16 16:47 Consult - Cardiology NOW Consulting Provider: Karan Simmons Physician Instructions: Reason For Exam: carotid artery stenosis, weakness Does pt have current [facility] [place] consultant?: Not Established 09/24/16 16:51 Consult NOW Consulting Provider: Maria Guadalupe rOtega Physician Instructions: Reason For Exam: acute mental status changes, social support 09/25/16 10:48 Consult - Cardiology NOW Consulting Provider: Karan Simmons Physician Instructions: Reason For Exam: weakness, carotid bruit Does pt have current [place] consultant?: Not Established Physical Exam - Vital Signs Vital Signs: Vital Signs - Last 24 Hrs Temp Pulse Pulse Pulse Resp BP BP 09/26/16 09:01 98.1 F 66 24 122/61 09/26/16 08:13 64 20 09/26/16 04:13 98.1 F 67 22 134/69 09/25/16 21:56 98.5 F 65 24 122/63 09/25/16 21:00 68 18 09/25/16 18:00 97.7 F 68 14 120/63 09/25/16 14:00 97.6 F 66 14 98/51 Pulse Ox 09/26/16 09:01 97 09/26/16 08:13 09/26/16 04:13 95 09/25/16 21:56 97 09/25/16 21:00 09/25/16 18:00 97 09/25/16 14:00 96 - General General Appearance: Alert, Oriented x3, Cooperative, No acute distress Limitations: No limitations, Other (garbled speech, poor historian, word finding difficulties, weak voice) - Head Head exam: Atraumatic, Normocephalic, Normal inspection - Eye Eye exam: Normal appearance, PERRL, EOMI Pupils: Normal accommodation - ENT ENT exam: Normal exam, Mucous membranes moist, Normal external ear exam, Normal orophraynx, TM's normal bilaterally Ear exam: Normal external inspection. negative: External canal tenderness Nasal Exam: Normal inspection. negative: Discharge, Sinus tenderness Mouth exam: Normal external inspection, Tongue normal Teeth exam: Normal inspection. negative: Dental caries Throat exam: Normal inspection. negative: Tonsillar erythema, Tonsillar exudate - Neck Neck exam: Normal inspection, Full ROM. negative: Tenderness - Respiratory Respiratory exam: Normal lung sounds bilaterally. negative: Respiratory distress - Cardiovascular Cardiovascular Exam: Regular rate, Normal rhythm, Normal heart sounds, Systolic murmur, Other (soft right carotid bruit) Peripheral Pulses: 3+: Dorsalis Pedis (R), Dorsalis Pedis (L) - GI/Abdominal GI/Abdominal exam: Soft, Normal bowel sounds. 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 negative: Tenderness - Back Back exam: Reports: Normal inspection - Neurological Neurological exam: Abnormal gait (balance is good with walker and 2 person assist), Alert, Motor sensory deficit (There is no weakness on exam but there is mild abnormal finger to nose examinations with the L arm.), Oriented X3, Other (mild right sided tongue deviation). negative: Altered, Normal gait - Psychiatric Psychiatric exam: Normal affect, Normal mood Hospitalization - Hospitalization Admission Diagnosis: 1. Generalized weakness with inability to walk, R/O CVA. - Problem List/Discharge Diagnosis (1) Weakness Current Visit: Yes Status: Acute Base Code: R53.1 - WEAKNESS Comment: 09/26/16: suspected acute cerebrovascular accident although head CT negative. CE's negative x 1. EKG sinus rhythm, unchanged from 2013. Patient denying CP, SOB, confusion, fever, chills, upper/lower extremity weakness, vision changes, or room spinning. Etiology unclear at this point cause of sudden onset weakness and headache. Carotid dopplers- atheromatous changes R>L , less than 50% occlusion bilat. Overarching infectious process r/o, head CT negative, ? TIA vs. vascular dementia vs. other neurological process. 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 - Repeat CT head w/o contrast to r/o evolving thrombus due to neuro status changes- results small vessel ischemic changes, atrophy, no acute process - urine C&S r/o atypical bacterial infection- culture pending - Echo complete, cardiology consult complete, recommend repeat carotid duplex as outpatient at [facility]. Echo with mild LVH, mitral regurgitation - Discharge home with close family support, frequent checks at least daily, home PT/OT/SCHOOL BUSINESS MANAGER, nursing, social work - follow up PCP Dr Negrete 1 week after discharge - schedule carotid doppler at [facility] for repeat study - recommend Life Alert system at home - Marija Mccall to be present upon discharge for instructions and will be taking him home and meeting home care nurse (2) Abdominal distension Current Visit: Yes Status: Resolved Base Code: R14.0 - ABDOMINAL DISTENSION (GASEOUS) Comment: 09/26/16- constipation vs. ileus vs. urinary retention - abdominal series showing large stool content in colon, no ileus or obstruction. - Mirilax x 1 to initiate bowel movement- moved bowels that night, abominal distention resolved - urology consult with Dr Knapp 09/24- urinary retention, connelly placed and will need to follow up in 1 week, daughter aware and will be scheduling appt so she can be in town to attend office visit with him. (3) DVT prophylaxis Current Visit: Yes Status: Acute Base Code: [id number] - Comment: 09/26/16: high risk: age, decreased mobility. patient ambulating to the rest room. received 325 mg of ASA in the ED. Taking daily ASA and Plavix - patiet continue to work with PT and encourage frequent amb with nursing (4) Full code status Current Visit: Yes Status: Acute Base Code: Z78.9 - OTHER SPECIFIED HEALTH STATUS Comment: 09/26/16: patient will remain full code during his stay (5) Urinary retention Current Visit: Yes Status: Acute Base Code: R33.9 - RETENTION OF URINE, UNSPECIFIED Comment: 09/26/16- Dr Knapp consult 09/24 - connelly placed and to remain - follow up either outpatient or inpatient in 1 week - CBC/CMP unremarkable with mild elevation BUN, Cr normal, nursing to encourage increased fluid intake - urine C&S pending - Hospitalization Course Disposition: Home Health Service Hospital Course: 86 yo male admitted for ataxia. 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 History was obtained from patient who is A&Ox3. Patient presented to the ED by EMS due to generalized weakness and inability to ambulate. Onset was this morning. Patient states he cut a few acres of his lawn last night. He felt well until he woke up this morning. Unknown aggravating factors. Alleviated by nothing. Associated symptoms include headache last night and this morning. Upon presentation, VSS. WBC 6.6, hgb 12.3 , hct 36.4, plt 228. CMP relatively unremarkable. CE's negative x 1. UA unremarkable. EKG: sinus rhythm, unchanged from 2013. CXR: NAP. Head CT: generalized atrophy, o/w negative. Bolus of IVs given in the ER along with 325 mg of ASA. Patient admitted for further medical management. This afternoon, patient sitting up in bed eating lunch. He denies any concerns at this time. States he's still unable to stand up due to abnormal gait and balance. He denies any confusion, vision change, feeling like the room's spinning, abdominal pain, change in bowel habits, blood in stool, n/v, fever, chills, CP, SOB, cough, lightheadedness, dizziness or headache. States he experienced a headache last night and then earlier this morning. He denies any hospitalizations w/in the past 6 months. He saw his PCP on 09/19/16. No recent travel, sick contacts or changes to medications. Lives independently. Denies recent falls. He uses a cane at home. Has family in [place], though not close by. States he believes he had a stroke about 10 years ago. Does not have a neurologist or [place] consultant. 14:00: patient ambulated to the restroom w/ walker and two person assist. He felt as if his balance had improved with use of the walker. PCP: Dr. Negrete. Procedures: Imaging and X-Rays 09/23/16 12:32 ARTERIAL DOPPLER CAROTID CURT [US] Stat 09/24/16 10:35 ABDOMEN, ACUTE SERIES [RAD] Stat 09/24/16 16:50 HEAD WO CONTRAST [CT] Stat Cardiology Procedures 09/23/16 13:55 Echocardiogram 2D - Limited ONCE Abnormal Labs: Abnormal Lab Results 09/25/16 09/25/16 Range/Units 12:01 12:01 RBC 4.24 L (4.40-5.70) M/uL Hgb 13.2 L (14.0-18.0) gm/dl Hct 39.5 L (42.0-52.0) % Monocytes % 13.9 H (0-9) % BUN 22 H (9-20) mg/dL Condition at Discharge: (3) Guarded Discharge Medications - Discharge Medications Home Medications: Ambulatory Orders Amlodipine Besylate [Norvasc] 5 mg PO DAILY 09/07/15 [Last Taken 09/23/16] Clopidogrel Bisulfate [Plavix] 75 mg PO DAILY 09/07/15 [Last Taken 09/23/16] Levothyroxine Sodium [Synthroid] 100 mcg PO DAILY 09/07/15 [Last Taken 09/23/16] Lisinopril [Zestril] 20 mg PO DAILY 09/07/15 [Last Taken 09/22/16] Aspirin [Aspirin EC] 81 mg PO DAILY 09/23/16 [Last Taken 09/23/16] Atorvastatin Calcium [Lipitor] 40 mg PO DAILY 09/23/16 [Last Taken 09/23/16] Timolol [Betimol] 5 ml OP DAILY 09/23/16 [Last Taken 09/23/16] Latanoprost 0.005% Opth Desire [Xalatan] 1 drop OPTH QHS btl 09/26/16 [Last Taken Unknown] Discharge Plan - Discharge Instructions Activity at Discharge: As Per Physical Therapy, Increase Activity as Tolerated Diet at Discharge: Low Fat, Low Cholesterol
== END 2016-09-26 16:24 | disposition home health service (06) | DRG 948 ==
LOC: ER 08:04 → MEDSURG 11:59
PROVIDERS: ADMIT Family Medicine; ATTEND Family Medicine
DX: R53.1 Weakness (principal); F20.0 Paranoid schizophrenia; R26.2 Difficulty in walking, not elsewhere classified; I10 Essential (primary) hypertension; E03.9 Hypothyroidism, unspecified; E78.00 Pure hypercholesterolemia, unspecified; I25.2 Old myocardial infarction; Z78.9 Other specified health status; N40.1 Benign prostatic hyperplasia with lower urinary tract symptoms; R35.0 Frequency of micturition; Z95.1 Presence of aortocoronary bypass graft
CPT/HCPCS: 70450; 71020; 74022; 80048; 80053; 81003; 82550; 82553; 84443; 84484; 85025; 93005; 93010; 93041; 93306; 93880; 97110; 97116; 97166; 97530; 99223; 99233; 99239; 99285; J7030

== ENCOUNTER 2016-09-27 12:26 | Emergency (ER) | payer MEDICARE, BC ==
--- NOTE | 2016-09-27 14:18 | Emergency Department Record ---
History of Present Illness - General Chief complaint: Weakness Stated complaint: WEAKNESS/FALL Time Seen by Provider: 09/27/16 14:10 Source: Patient, EMS Mode of Arrival: EMS Limitations: No limitations - History of Present Illness Initial comments: pt was just discharged from inpt yesterday and was sent home. pt was too weak to ambulate and fell while attempting to go to the bathroom and was unable to get back up. MD Complaint: Generalized weakness Onset/Timin -: Days(s) Location: Generalized Improves with: None Worsens with: None Context: Recent illness Associated Symptoms: Denies other symptoms - Mobile Coma Scale Eye Response: (4) Open spontaneously Motor Response: (6) Obeys commands Verbal Response: (5) Oriented Mobile Total: 15 - Related Data Home Medications Medication Instructions Recorded Confirmed Last Taken Amlodipine Besylate [Norvasc] 5 mg PO DAILY 09/07/15 09/23/16 09/23/16 Clopidogrel Bisulfate [Plavix] 75 mg PO DAILY 09/07/15 09/23/16 09/23/16 Levothyroxine Sodium [Synthroid] 100 mcg PO DAILY 09/07/15 09/23/16 09/23/16 Lisinopril [Zestril] 20 mg PO DAILY 09/07/15 09/23/16 09/22/16 Aspirin [Aspirin EC] 81 mg PO DAILY 09/23/16 09/23/16 09/23/16 Atorvastatin Calcium [Lipitor] 40 mg PO DAILY 09/23/16 09/23/16 09/23/16 Timolol [Betimol] 5 ml OP DAILY 09/23/16 09/23/16 09/23/16 Previous Rx's Medication Instructions Recorded Latanoprost 0.005% Opth Desire 1 drop OPTH QHS btl 09/26/16 [Xalatan] Allergies Allergy/AdvReac Type Severity Reaction Status Date / Time No Known Drug Allergies Allergy Verified 09/09/15 17:27 Travel Screening - Travel/Exposure Within Last 30 Days Have you traveled within the last 30 days?: No - Travel/Exposure Within Last Year Have you traveled outside the [place] in the last year?: No - Additonal Travel Details Have you been exposed to anyone with a communicable illness?: No Review of Systems Reviewed: No additional complaints except as noted below Constitutional: Reports: As per HPI. Denies: Chills, Fever, Malaise, Night sweats, Weakness, Weight change Eyes: Reports: As per HPI. Denies: Eye discharge, Eye pain, Photophobia, Vision change ENT: Reports: As per HPI. Denies: Congestion, Dental pain, Ear pain, Epistaxis , Hearing loss, Throat pain Respiratory: Reports: As per HPI. Denies: Cough, Dyspnea, Hemoptysis, Stridor, Wheezes Cardiovascular: Reports: As per HPI. Denies: Arrhythmia, Chest pain, Dyspnea on exertion, Edema, Murmurs, Orthopnea, Palpitations, Paroxysmal nocturnal dyspnea, Rheumatic Fever, Syncope Endocrine: Reports: As per HPI. Denies: Fatigue, Heat or cold intolerance, Polydipsia, Polyuria Gastrointestinal: Reports: As per HPI. Denies: Abdominal pain, Constipation, Diarrhea, Hematemesis, Hematochezia, Melena, Nausea, Vomiting Genitourinary: Reports: As per HPI. Denies: Dysuria, Frequency, Hematuria, Incontinence, Retention, Testicular pain, Testicular mass, Urgency Musculoskeletal: Reports: As per HPI. Denies: Arthralgia, Back pain, Gout, Joint swelling, Myalgia, Neck pain Skin: Reports: As per HPI. Denies: Bruising, Change in color, Change in hair/ nails, Lesions, Pruritus, Rash Neurological: Reports: As per HPI. Denies: Abnormal gait, Confusion, Headache, Numbness, Paresthesias, Seizure, Tingling, Tremors, Vertigo, Weakness Psychiatric: Reports: As per HPI. Denies: Anxiety, Auditory hallucinations, Depression, Homicidal thoughts, Suicidal thoughts, Visual hallucinations Hematological/Lymphatic: Reports: As per HPI. Denies: Anemia, Blood Clots, Easy bleeding, Easy bruising, Swollen glands Past Medical History - SOCIAL HISTORY Smoking Status: Never smoker Alcohol Use: None Drug Use: None - RESPIRATORY Hx Respiratory Disorders: No - CARDIOVASCULAR Hx Cardio Disorders: Yes Hx Abnormal EKG: Yes Hx Heart Attack: Yes Hx Hypertension: Yes - NEURO Hx Neuro Disorders: No - GI Hx GI Disorders: No - Hx Genitourinary Disorders: No - ENDOCRINE Hx Endocrine Disorders: No - MUSCULOSKELETAL Hx Musculoskeletal Disorders: Yes Hx Arthritis: Yes - PSYCH Hx Psych Problems: No - HEMATOLOGY/ONCOLOGY Hx Hematology/Oncology Disorders: No Family Medical History Any Significant Family History?: No Physical Exam - General General Appearance: Alert, Oriented x3, Cooperative, Mild distress - Head Head exam: Normal inspection - Eye Eye exam: Normal appearance, PERRL, EOMI Pupils: Normal accommodation - ENT ENT exam: Normal exam, Mucous membranes moist, Normal external ear exam, Normal orophraynx Ear exam: Normal external inspection. negative: External canal tenderness Nasal Exam: Normal inspection. negative: Discharge, Sinus tenderness Mouth exam: Normal external inspection, Tongue normal Teeth exam: Normal inspection. negative: Dental caries Throat exam: Normal inspection. negative: Tonsillar erythema, Tonsillar exudate - Neck Neck exam: Normal inspection, Full ROM. negative: Tenderness - Respiratory Respiratory exam: Normal lung sounds bilaterally. negative: Respiratory distress - Cardiovascular Cardiovascular Exam: Regular rate, Normal rhythm, Normal heart sounds - GI/Abdominal GI/Abdominal exam: Soft, Normal bowel sounds. negative: Tenderness - Rectal Rectal exam: Deferred - exam: Deferred - Extremities Extremities exam: Normal inspection, Normal capillary refill, Tenderness (r hip tenderness, able to lift leg). negative: Full ROM - Back Back exam: Reports: Normal inspection, Full ROM. Denies: Muscle spasm, Rash noted, Tenderness - Neurological Neurological exam: Alert, CN II-XII intact, Normal gait, Oriented X3 - Psychiatric Psychiatric exam: Normal affect, Normal mood - Skin Skin exam: Dry, Intact, Normal color, Warm Course Vital Signs 09/27/16 12:28 Temperature 97.5 F L Pulse Rate 69 Respiratory 16 Rate Blood Pressure 117/61 Pulse Ox 96 - Reevaluation(s) Reevaluation #1: 09/27/16 14:18 d/w samantha and case management Disposition Disposition: Admit Disposition: Still a Patient at [facility] Decision to Admit: Admit from ER Decision to Admit Date: 09/27/16 Decision to Admit Time: 15:53 Condition: (1) Good Forms: Patient Portal Access
--- NOTE | 2016-10-01 07:07 | RADIOLOGY REPORT ---
EXAM: PELVIS AND RIGHT HIP HISTORY: PATIENT HAS PAIN OF THE RIGHT HIP. TECHNIQUE: AP view of the pelvis was provided and two views of the right hip were provided. Comparison: Abdomen x-ray dated 09/24/16 is provided. FINDINGS: There is no radiographic evidence of a fracture or dislocation of the right hip. No significant soft tissue abnormalities are visualized. Vascular calcification is identified within the region of the right hip. Advanced osteoarthritic changes appear similar to the prior examination. The visualized pelvis is unremarkable. IMPRESSION: ADVANCED OSTEOARTHRITIC CHANGES OF THE RIGHT HIP ARE NOTED WITHOUT RADIOGRAPHIC EVIDENCE OF AN ACUTE PROCESS INVOLVING THE RIGHT HIP. IF THERE IS FURTHER CLINICAL CONCERN THEN MRI OF THE RIGHT HIP CAN BE OBTAINED FOR FURTHER EVALUATION. JOB NUMBER: [id number] MTDD
== END 2016-09-27 16:14 | disposition still patient (30) ==
LOC: ER 12:26
DX: R53.1 Weakness (principal); I10 Essential (primary) hypertension; S00.01XA Abrasion of scalp, initial encounter; W18.49XA Other slipping, tripping and stumbling without falling, initial encounter; Z91.81 History of falling; Y92.012 Bathroom of single-family (private) house as the place of occurrence of the external cause; E03.9 Hypothyroidism, unspecified; I25.2 Old myocardial infarction
CPT/HCPCS: 99285

== ENCOUNTER 2016-09-27 14:57 | Inpatient (IN) | payer MEDICARE, BC ==
--- NOTE | 2016-09-27 20:35 | Rehab Evaluation ---
Patient Information - Patient Information Diagnosis: Generalized weakness, fall Ordered Treatment: PT Evaluate and Treat Status: Initial Evaluation Surgery: No History: Detail (Pt had a three-day course of inpatient hospitalization from to 09/26/16 following sudden onset of weakness and inability to ambulate. He recovered somewhat and was discharged home. He reports falling in his bathroom upon arising this morning after emptying his catheter bag, crawling to his bed to pull himself up. 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 He has 4 steps to enter the home, with a single handrail. He has tub/shower combination , but typically bathes at the sink. He states he was ambulating with a quad cane prior to previous admission, and reports having mowed his lawn last Friday09/23/16. He also has a front wheeled walker. He typically does his own cooking , yard work, and home management; he goes to a laundromat to do laundry.) Social History: Detail (Pt lives alone. He has a son Abdifatah who lives in the , who is present today. He has [id number] that live in [place], who are also present today.) Precautions: [place], Fall - Time With Patient Total Time Spent With Patient (Min): 40 Treatment Procedures: Detail (PT Evaluation) Subjective Information - Subjective Information Per Patient (Pt sitting up in bed upon arrival, just finished dinner. He is alert, cooperative, relates details of his immediate history accurately.) Objective Data - Pain Pain Present: Yes Pain Intensity: 2 (Pt reports pain at R alarcon (abrasion) and at R hip that is intermittent) Pain Scale Used: Numeric (1 - 10) - Mental Status Patient Orientation: Oriented x3 - Visual Perception Appears within normal limits for therapeutic activities - ROM Within normal limits - Strength/Tone Not within normal limits (R hip flexion, extension, adduction, knee flexion, extension, and ankle df are 4+/5. L hip flexion, extension, adduction and B hip abduction are 4-/5; L knee flexion and extension are 4/5, L ankle df is 3+/ 5.) - Coordination Appears within normal limits for therapeutic activities - Bed Mobility Needs Assist (Required moderate assist of one to come to sitting from reclined position, to get to supine from sitting, and moderate assist and verbal cuing to scoot laterally or up in bed.) - Transfers Needs Assist (CGA/Supervision for sit/stand transfers; CGA for pivot transfers w /front-wheeled walker. Nrsg reported three person assist needed to transfer to bed from wheelchair upon admission. VCs to get into appropriate position for toileting and for placement in bed.) - Balance Balance Sitting: Good Balance Standing: Fair (No loss of balance, but increased sway noted in standing w/o UE support.) - Sensation Intact - Gait Detail (Ambulated with CGA w/front wheeled walker from bed to nursing station and back to bed w/o report of fatigue or difficulty.) Therapy Assessment - Therapy Assessment Detail (Pt exhibits L lower extremity weakness, impaired activity tolerance, and likely balance deficits that are compromising his safety at home. He is a good candidate for short-term inpatient rehabilitation to return to independent living.) Problem List - Problem List Physical Therapy Problem List: Detail (1. Requires assist for bed mobility. 2. Left lower extremity weakness. 3. Requires assist w/transfers. 4. Difficulty walking. 5. Impaired activity tolerance. 6. Likely balance impairment.) Goals - Goals Physical Therapy Goals: 1. Assess patient's balance using standardized balance test. 2. Pt will be safe and independent with bed mobility and transfers. 3. Pt will safely and independently ambulate 250 feet w/front wheeled walker. 4. Pt will tolerate 30 to 45 minutes of therapeutic activity without undue fatigue. 5. Pt will exhibit improved strength in initially weak lower extremity muscle groups, for greater stability with ambulation. Prognosis - Prognosis Good Plan - Plan Physical Therapy Plan: PT daily M-F for bed mobility, transfer, and gait/ balance training; instruction in LE strengthening exercises, facilitation of activity tolerance.
[2016-09-27] MEDS: LATANOPROST 0.005% OPTH SOLUTION 2.5ML BOTTLE OPTH SCH (22:48)
[2016-09-28] MEDS: LEVOTHYROXINE SODIUM 100 MCG TABLET PO SCH (06:56)
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
[2016-09-28] MEDS: LISINOPRIL 20 MG TABLET PO SCH (09:32)
[2016-09-28] MEDS: ASPIRIN 81 MG TABEC PO SCH (09:32)
[2016-09-28] MEDS: CLOPIDOGREL 75MG TABLET PO SCH (09:32)
[2016-09-28] MEDS: TIMOLOL MALEATE 0.5% 5ML BTL OPTH SCH (09:32)
[2016-09-28] MEDS: ATORVASTATIN 20 MG TABLET PO SCH (09:32)
[2016-09-28] MEDS: AMLODIPINE BESYLATE 5MG TAB PO SCH (09:33)
[2016-09-28] MEDS: MAGNESIUM HYDROXIDE 30 ML UDC PO PRN (11:11)
[2016-09-28] MEDS: LATANOPROST 0.005% OPTH SOLUTION 2.5ML BOTTLE OPTH SCH (21:00)
[2016-09-28] MEDS: ACETAMINOPHEN 500 MG TABLET PO PRN (23:41)
[2016-09-29] MEDS: LEVOTHYROXINE SODIUM 100 MCG TABLET PO SCH (06:03)
[2016-09-29 06:26] LABS: HEMATOCRIT 34.6 % (42.0-52.0); HEMOGLOBIN 11.5 gm/dl (14.0-18.0); MEAN CELL VOLUME 94.3 fl (81-97); MEAN CORPUSCULAR HEMOGLOBIN 31.3 pg (27-33); MEAN CORPUSCULAR HGB CONC 33.2 g/dl (32-36); MEAN PLATELET VOLUME 9.9 fl (7.4-10.4); PLATELET COUNT 188 K/uL (130-400); RED BLOOD COUNT 3.67 M/uL (4.40-5.70); RED CELL DISTRIBUTION WIDTH 13.1 % (11.5-14.5); WHITE BLOOD COUNT W/O DIFF 6.2 K/uL (4.2-12.2)
[2016-09-29 06:46] LABS: ALB/GLOB RATIO 1.2 (1.1-1.8); ALBUMIN 3.5 gm/dL (3.5-5.0); ALKALINE PHOSPHATASE 88 U/L (38-126); ALT/SGPT 28 U/L (21-72); ANION GAP 6.1 (7-16); AST/SGOT 26 U/L (17-59); BLOOD UREA NITROGEN 17 mg/dL (9-20); CARBON DIOXIDE 25.9 mmol/L (22-30); CREATININE 0.8 mg/dL (0.66-1.25); EST GLOMERULAR FILTRATION RATE > 60 ml/min; GLUCOSE,RANDOM 97 mg/dL (70-110); TOTAL PROTEIN 6.4 gm/dL (6.3-8.2)
[2016-09-29 07:14] LABS: PLATELET ESTIMATE NORMAL (NORMAL)
[2016-09-29] MEDS: TIMOLOL MALEATE 0.5% 5ML BTL OPTH SCH (07:56)
[2016-09-29] MEDS: LISINOPRIL 20 MG TABLET PO SCH (09:21)
[2016-09-29] MEDS: ASPIRIN 81 MG TABEC PO SCH (09:21)
[2016-09-29] MEDS: ATORVASTATIN 20 MG TABLET PO SCH (09:21)
[2016-09-29] MEDS: AMLODIPINE BESYLATE 5MG TAB PO SCH (09:22)
[2016-09-29] MEDS: CLOPIDOGREL 75MG TABLET PO SCH (09:22)
[2016-09-29] MEDS: LATANOPROST 0.005% OPTH SOLUTION 2.5ML BOTTLE OPTH SCH (22:05)
[2016-09-30] MEDS: LEVOTHYROXINE SODIUM 100 MCG TABLET PO SCH (06:33)
[2016-09-30] MEDS: ASPIRIN 81 MG TABEC PO SCH (09:36)
[2016-09-30] MEDS: ATORVASTATIN 20 MG TABLET PO SCH (09:36)
[2016-09-30] MEDS: CLOPIDOGREL 75MG TABLET PO SCH (09:36)
[2016-09-30] MEDS: AMLODIPINE BESYLATE 5MG TAB PO SCH (09:36)
[2016-09-30] MEDS: TIMOLOL MALEATE 0.5% 5ML BTL OPTH SCH (09:37)
[2016-09-30] MEDS: LISINOPRIL 20 MG TABLET PO SCH (09:37)
--- NOTE | 2016-09-30 12:11 | Physical Therapy Tx Note ---
Physical Therapy Tx Note - Treatment Note Tolerated: Good Total Time Spent With Patient: 30 Physical Therapy Tx Note: Detail (The patient was in bed sleeping when PT arrived. The patient was easily roused. The patient acheived supine to sit independently. The patient required supervision with sitting balance and tends to lean backward. The patient ambulated with wheeled walker with CG of 1 a distance of 50 feet x 1, with occasional L foot drag was noted. Standing balance exercises: standing with various support. The patient's balance was tested using the Tinetti Assessment Tool: ( high risk for falling category ). The patient also completed LE exercises in a chair: hip abduction/adduction , marching, LAQ, heelslides, ankle pumps and circles x 10 reps. The patient tolerated treatment well. The patient was left in chair with chair alarm on and call light in place. Nursing was notified.) Physical Therapy Problem List: Detail (1. Requires assist for bed mobility. 2. Left lower extremity weakness. 3. Requires assist w/transfers. 4. Difficulty walking. 5. Impaired activity tolerance. 6. Likely balance impairment.) Physical Therapy Goals: 1. Assess patient's balance using standardized balance test. 2. Pt will be safe and independent with bed mobility and transfers. 3. Pt will safely and independently ambulate 250 feet w/front wheeled walker. 4. Pt will tolerate 30 to 45 minutes of therapeutic activity without undue fatigue. 5. Pt will exhibit improved strength in initially weak lower extremity muscle groups, for greater stability with ambulation. Physical Therapy Plan: PT daily M-F for bed mobility, transfer, and gait/ balance training; instruction in LE strengthening exercises, facilitation of activity tolerance.
--- NOTE | 2016-09-30 14:54 | Rehab Evaluation ---
Patient Information - Patient Information Diagnosis: Generalized weakness, fall Ordered Treatment: OT Evaluate and Treat Status: Initial Evaluation Surgery: No History: Detail (Pt had a three-day course of inpatient hospitalization from to 09/26/16 following sudden onset of weakness and inability to ambulate. He recovered somewhat and was discharged home. He reports falling in his bathroom upon arising this morning after emptying his catheter bag, crawling to his bed to pull himself up. 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 He has 4 steps to enter the home, with a single handrail. He has tub/shower combination , but typically bathes at the sink. He states he was ambulating with a quad cane prior to previous admission, and reports having mowed his lawn last Friday09/23/16. He also has a front wheeled walker. He typically does his own cooking , yard work, and home management; he goes to a laundromat to do laundry.) Social History: Detail (Pt lives alone. He has a son Abdifatah who lives in the and a granddaughter who are present today.) Precautions: [place], Fall - Time With Patient Total Time Spent With Patient (Min): 60 Treatment Procedures: Detail (OT eval moderate complexity) Subjective Information - Subjective Information Per Patient Objective Data - Pain Pain Present: No - Mental Status Patient Orientation: Oriented x3 - Visual Perception Appears within normal limits for therapeutic activities (Pt reports he wears glasses for reading. Visual screen grossly WNL.) - ROM Within normal limits (Pardeep UE AROM WNL.) - Strength/Tone Within normal limits (Pardeep UE MMT grossly 4+/5 throughout.) - Coordination Appears within normal limits for therapeutic activities (Fingertip to thumb coordination equal bilaterally. Mildly decreased coordination noted with functional activities although very mild.) - Transfers Needs Assist (Mod assist for sit to stand from chair to walker.) - Balance Balance Sitting: Good Balance Standing: Fair - Sensation Intact - Gait Detail (Pt ambulated to bathroom with 2 wheeled walker and CG assist.) - ADL's/IADL's Detail (Pt able to shave at sink with set up and assist to open shaving cream. He reports he usually stands to complete self care at sink but was only able to stand for several minutes today before becoming fatigued. He was able to complete upper body sponge bathing with set up, doffed t-shirt Indly and donned t-shirt with min assist, in sitting. LE self cares not formally assessed as patient was fatigued.) Therapy Assessment - Therapy Assessment Detail (Pt presents with decreased Ind with self cares, functional mobility, endurance and UE coordination needed for safe and Ind ADLs.) Problem List - Problem List Physical Therapy Problem List: Detail (1. Requires assist for bed mobility. 2. Left lower extremity weakness. 3. Requires assist w/transfers. 4. Difficulty walking. 5. Impaired activity tolerance. 6. Likely balance impairment.) Occupational Therapy Problem List: Detail (1. Decreased Ind with self care activities. 2. Decreased endurance needed for safe and Ind ADLs/IADLs. 3. Decreased functional mobility 4. Decreased UE function needed for safe and Ind ADLs/IADLs.) Goals - Goals Physical Therapy Goals: 1. Assess patient's balance using standardized balance test. 2. Pt will be safe and independent with bed mobility and transfers. 3. Pt will safely and independently ambulate 250 feet w/front wheeled walker. 4. Pt will tolerate 30 to 45 minutes of therapeutic activity without undue fatigue. 5. Pt will exhibit improved strength in initially weak lower extremity muscle groups, for greater stability with ambulation. Occupational Therapy Goals: 1. Pt will be Ind with sponge bathing at sink. 2. Pt will be Ind with total body dressing 3. Pt will demonstrate increased endurance and Ind functional mobility needed for safe and Ind ADLs/IADLs 4. Pt will demonstrate WNL UE function needed for self cares. Prognosis - Prognosis Good Plan - Plan Physical Therapy Plan: PT daily M-F for bed mobility, transfer, and gait/ balance training; instruction in LE strengthening exercises, facilitation of activity tolerance. Occupational Therapy Plan: OT 2-4 days per week to address self cares, UE function, functional mobility and overall activity tolerance to allow safe and Ind return home.
[2016-09-30] MEDS: LATANOPROST 0.005% OPTH SOLUTION 2.5ML BOTTLE OPTH SCH (21:49)
[2016-10-01] MEDS: LEVOTHYROXINE SODIUM 100 MCG TABLET PO SCH (07:15)
--- NOTE | 2016-10-01 08:33 | Occupational Therapy Tx Note ---
Occupational Therapy Tx Note - Treatment Note Tolerated: Good Total Time Spent With Patient: 30 (ADL) Occupational Therapy Treatment Note: Detail (S: Pt awake and ready to get up. O: Supine to sit Indly with minimal difficulty. Sit to stand from EOB to walker with SBA and amb 15 feet to toilet with CG assist. Pt stand to sit on standard height toilet with use of grab bar. Toileted Indly including pants. Sit to stand with grab bar Indly. Amb to sink with walker and stood for approx 5 min to complete laurie area sponge bathing with SBA for balance. Pt able to doff and don sock type slippers Indly. Pt sat to rest for 2 minutes and then was able to stand from chair while pulling up on sink. Amb 50 feet with 2 wheeled walker and CG assist and verbal cues for left LE motion. Stand to sit Indly. A: Pt fatigued with self care activity. Decreased balance and left LE strength continue to impair ADLs and mobility) Occupational Therapy Problem List: Detail (1. Decreased Ind with self care activities. 2. Decreased endurance needed for safe and Ind ADLs/IADLs. 3. Decreased functional mobility 4. Decreased UE function needed for safe and Ind ADLs/IADLs.) Occupational Therapy Goals: 1. Pt will be Ind with sponge bathing at sink. 2. Pt will be Ind with total body dressing 3. Pt will demonstrate increased endurance and Ind functional mobility needed for safe and Ind ADLs/IADLs 4. Pt will demonstrate WNL UE function needed for self cares. Prognosis: Good Occupational Therapy Plan: OT 2-4 days per week to address self cares, UE function, functional mobility and overall activity tolerance to allow safe and Ind return home.
[2016-10-01] MEDS: AMLODIPINE BESYLATE 5MG TAB PO SCH (09:14)
[2016-10-01] MEDS: ASPIRIN 81 MG TABEC PO SCH (09:14)
[2016-10-01] MEDS: LISINOPRIL 20 MG TABLET PO SCH (09:15)
[2016-10-01] MEDS: CLOPIDOGREL 75MG TABLET PO SCH (09:15)
[2016-10-01] MEDS: TIMOLOL MALEATE 0.5% 5ML BTL OPTH SCH (09:15)
[2016-10-01] MEDS: ATORVASTATIN 20 MG TABLET PO SCH (09:21)
--- NOTE | 2016-10-01 15:04 | Physical Therapy Tx Note ---
Physical Therapy Tx Note - Treatment Note Tolerated: Good Total Time Spent With Patient: 40 Physical Therapy Tx Note: Detail (Pt. asleep upon arrival. He was eager to go up to the PT department to exercise. He reported feeling "weak". Pt. walked 25 feet total with his fww, gait belt and contact guard and then transported to the p.t. department by wheelchair. He completed 20 D/F, P/F on wobble board, 20 ev/inv on wobble board, 3 X 15 short-arc quads with 2 lbs on R ankle and 1.5 lbs. onL ankle, 3 X 10 hamstring curls, Bilateral, with the red theraband, 3 X 20 seconds knee extension with glut squeeze, 15 X hip adduction with 4 second hold and ball, diagonals with 2 lb. ball and trunk rotation with 2 lb ball. All exercises were done bilaterally. Pt. tolerated treatment fairly well although fatigued at the end. He continues to drag his left foot. Pt. returned to his room and to the toilet with nursing notified. He was instructed to pull the rope for nursing when he was done. Plan is to continue to work on lower extremity strength.) Physical Therapy Problem List: Detail (1. Requires assist for bed mobility. 2. Left lower extremity weakness. 3. Requires assist w/transfers. 4. Difficulty walking. 5. Impaired activity tolerance. 6. Likely balance impairment.) Physical Therapy Goals: 1. Assess patient's balance using standardized balance test. 2. Pt will be safe and independent with bed mobility and transfers. 3. Pt will safely and independently ambulate 250 feet w/front wheeled walker. 4. Pt will tolerate 30 to 45 minutes of therapeutic activity without undue fatigue. 5. Pt will exhibit improved strength in initially weak lower extremity muscle groups, for greater stability with ambulation. Prognosis: Good Physical Therapy Plan: PT daily M-F for bed mobility, transfer, and gait/ balance training; instruction in LE strengthening exercises, facilitation of activity tolerance.
[2016-10-01] MEDS: LATANOPROST 0.005% OPTH SOLUTION 2.5ML BOTTLE OPTH SCH (21:30)
[2016-10-02] MEDS: ACETAMINOPHEN 500 MG TABLET PO PRN (06:56)
[2016-10-02] MEDS: LEVOTHYROXINE SODIUM 100 MCG TABLET PO SCH (06:56)
[2016-10-02] MEDS: CLOPIDOGREL 75MG TABLET PO SCH (10:06)
[2016-10-02] MEDS: TIMOLOL MALEATE 0.5% 5ML BTL OPTH SCH (10:07)
[2016-10-02] MEDS: ATORVASTATIN 20 MG TABLET PO SCH (10:07)
[2016-10-02] MEDS: ASPIRIN 81 MG TABEC PO SCH (10:07)
[2016-10-02] MEDS: LISINOPRIL 20 MG TABLET PO SCH (10:09)
[2016-10-02] MEDS: AMLODIPINE BESYLATE 5MG TAB PO SCH (10:10)
[2016-10-02] MEDS ORDERED: POLYETHYLENE GLY 17 GM PACKET PO PRN (11:35)
--- NOTE | 2016-10-02 12:01 | Medical Records Consult ---
DATE OF ADMISSION: 09/27/2016 DATE OF THIS VISIT: 10/01/2016 REASON FOR FOLLOWUP: Urinary retention. CASE SUMMARY: The patient was seen 1 week after my initial consultation at [facility]. At the time of his admission, he was having difficulty ambulating as well as weakness and severe urinary urgency, infrequency, and incontinence. A bladder scan postvoid residual was performed revealing more than 1 liter of urine in the bladder. A Haile catheter was placed at that time, and we have allowed his bladder to rest with the Haile catheter until today. He has been making slow progress according to him, feels slightly stronger than when he initially presented to the hospital. Vitals noted in the EMR. The patient is awake, alert, oriented x3. He was brought to the specialty clinic and placed supine. We discussed moving ahead with a voiding trial today. The bladder was filled with 200 mL of sterile water. The catheter was removed. The patient tolerated this quite well and was returned to his room. I had a lengthy discussion with the patient today describing the situation in detail as well as potential outcomes. I have written orders for nursing staff to perform a series of postvoid residuals. I have also written instructions to have the Haile catheter removed if the postvoid residual is consistently greater than 200 mL or if the patient is completely unable to void in the next 6 hours. He will continue his rehabilitation therapy. If ultimately he fails the voiding trial and the Haile is replaced, then I will need to have him follow up in either the [facility] or in my office in [place] and we will make arrangements for a cystoscopy. A total of 25 minutes was spent in counseling the patient as well as in transferring him and communication with other healthcare providers present including coordination of care. Brandon Knapp M.D. CC: Dr. Ryan ROBLES
[2016-10-02 12:58] LABS: ALB/GLOB RATIO 1.2 (1.1-1.8); ALBUMIN 3.8 gm/dL (3.5-5.0); ALKALINE PHOSPHATASE 95 U/L (38-126); ALT/SGPT 28 U/L (21-72); ANION GAP 6.3 (7-16); AST/SGOT 20 U/L (17-59); BILIRUBIN,TOTAL 0.93 mg/dL (0.2-1.3); BLOOD UREA NITROGEN 22 mg/dL (9-20); CARBON DIOXIDE 27.7 mmol/L (22-30); EST GLOMERULAR FILTRATION RATE > 60 ml/min; GLUCOSE,RANDOM 113 mg/dL (70-110); TOTAL PROTEIN 6.9 gm/dL (6.3-8.2)
[2016-10-02 13:01] LABS: BASO % 0.3 % (0-6); GRAN % 53.3 % (47-80); HEMATOCRIT 36.9 % (42.0-52.0); LYMPH % 24.1 % (16-45); MEAN CELL VOLUME 94.4 fl (81-97); MEAN CORPUSCULAR HGB CONC 32.5 g/dl (32-36); MEAN PLATELET VOLUME 9.8 fl (7.4-10.4); MONO % 14.3 % (0-9); PLATELET COUNT 237 K/uL (130-400); RED BLOOD COUNT 3.91 M/uL (4.40-5.70); RED CELL DISTRIBUTION WIDTH 13.2 % (11.5-14.5); WHITE BLOOD COUNT W/O DIFF 6.8 K/uL (4.2-12.2)
[2016-10-02 13:11] LABS: MEAN CORPUSCULAR HEMOGLOBIN 30.6 pg (27-33)
--- NOTE | 2016-10-02 13:22 | Physical Therapy Tx Note ---
Physical Therapy Tx Note - Treatment Note Tolerated: Fair Total Time Spent With Patient: 20 Physical Therapy Tx Note: Detail (Patient states feeling weak today. Patient transferred supine to sit independently. Patient required assist to don pants and socks. Patient transferred sit to stand min assist x1. Patient attempted standing marching, unable to continue due to fatigue. Patient transferred stand to sit CGA x1. Patient transferred sit to stand min assist x1. Patient ambulated 13 feet with wheeled walker CGA x1. Patient transferred stand to and from sit CGA x1. Patient pulled pants up after using restroom with min assist. Patient ambulated 13 feet with CGA x1. Patient transferred stand to sit CGA x1. Patient performed LAQ x10 bilateral. Patient displays decreased seated core strength and standing endurance. Patient required verbal cueing to sit straight without backward leaning or lateral leaning. Patient reports tired with treatment. Treatment interrupted by family conference with PA and patient wanting to participate. Patient was left seated on edge of bed with PA, nurse, and family in room.) Physical Therapy Problem List: Detail (1. Requires assist for bed mobility. 2. Left lower extremity weakness. 3. Requires assist w/transfers. 4. Difficulty walking. 5. Impaired activity tolerance. 6. Likely balance impairment.) Physical Therapy Goals: 1. Assess patient's balance using standardized balance test. 2. Pt will be safe and independent with bed mobility and transfers. 3. Pt will safely and independently ambulate 250 feet w/front wheeled walker. 4. Pt will tolerate 30 to 45 minutes of therapeutic activity without undue fatigue. 5. Pt will exhibit improved strength in initially weak lower extremity muscle groups, for greater stability with ambulation. Prognosis: Good Physical Therapy Plan: PT daily M-F for bed mobility, transfer, and gait/ balance training; instruction in LE strengthening exercises, facilitation of activity tolerance.
--- NOTE | 2016-10-02 13:57 | Physician Progress Note ---
Subjective - Date Date of Progress Note: 10/03/16 - Admitting Diagnosis Diagnosis: Weakness - Subjective Nursing Care Plan Problem List Activity Intolerance (Swing Bed) Start: 09/27/16 15: 51 Freq: Status: Active Created 09/27/16 15:51 [facility] (Rec: 09/27/16 15:51 KM [id number]) Altered Urinary Elimination Pattern Start: 09/27/16 16: 47 Freq: Status: Active Created 09/27/16 16:47 [facility] (Rec: 09/27/16 16:47 KM [id number]) Impaired Mobility Start: 09/27/16 16: 47 Freq: Status: Active Created 09/27/16 16:47 [facility] (Rec: 09/27/16 16:47 KM [id number]) Impaired Skin Integrity Start: 09/27/16 16: 47 Freq: Status: Active Created 09/27/16 16:47 [facility] (Rec: 09/27/16 16:47 KM [id number]) Knowledge Deficit (Swing Bed) Start: 09/27/16 15: 51 Freq: Status: Active Created 09/27/16 15:51 [facility] (Rec: 09/27/16 15:51 [facility] [id number]) Pain (Swing Bed) Start: 09/27/16 15: 51 Freq: Status: Active Created 09/27/16 15:51 [facility] (Rec: 09/27/16 15:51 [facility] [id number]) Risk For Falls (Swing Bed) Start: 09/27/16 16: 47 Freq: Status: Active Created 09/27/16 16:47 [facility] (Rec: 09/27/16 16:47 KM [id number]) Subjective: Patient states he is feeling pretty good today. He does admit his right hip was a little sore last night after doing PT. He did work upstairs and did more yesterday than he had been doing. Family is concerned he may be a little weaker today, but he has been ambulating to the bathroom with walker. He denies any headache, chest pain, abdominal pain. Has been a little constipated. Patient saw Dr. Bradley yesterday and had catheter removed. Had to be placed again last night due to retention. - Subjective Detail Comment: No additional complaints except as noted below General - Communication Select best description of speech pattern: Unclear Speech Ability to express ideas and wants: Usually Understood Understanding verbal content: Usually Understands - Physical Functioning Activity Level: Up with assist x1 Turning: With partial assist ROM Ability: Limited/Compromised Assistive Devices: 2 Wheel Walker Ambulation Ability: Needs Assist Bed Mobility: Needs Assist Transfer Ability: Needs Assist Bathing Ability: Needs Assist Personal Hygiene: Needs Assist Dressing Ability: Needs Assist Eating (Feeding) Ability: Independent Toileting Ability: Needs Assist Administer Own Medication: Needs Assist - Continence Bowel Pattern: Normal for Patient Bladder Pattern: Retention Meds/Allergies - Allergies Allergies Allergy/AdvReac Type Severity Reaction Status Date / Time No Known Drug Allergies Allergy Verified 09/09/15 17:27 - Active Medications Current Medications Acetaminophen (Tylenol 500mg Tab) 1,000 mg PO Q6H PRN PRN Reason: Pain - General Last Admin: 10/02/16 06:56 Dose: 1,000 mg Amlodipine Besylate (Norvasc) 5 mg PO DAILY [facility] Last Admin: 10/02/16 10:10 Dose: Not Given Aspirin (Ecotrin (Ec)) 81 mg PO DAILY [facility] Last Admin: 10/02/16 10:07 Dose: 81 mg Atorvastatin Calcium (Lipitor) 40 mg PO DAILY [facility] Last Admin: 10/02/16 10:07 Dose: 40 mg Clopidogrel Bisulfate (Plavix) 75 mg PO DAILY [facility] Last Admin: 10/02/16 10:06 Dose: 75 mg Latanoprost (Xalatan) 1 drop OPTH QHS [facility] Last Admin: 10/01/16 21:30 Dose: 1 drop Levothyroxine Sodium (Synthroid) 100 mcg PO DAILYTHY [facility] Last Admin: 10/02/16 06:56 Dose: 100 mcg Lisinopril (Zestril) 20 mg PO DAILY [facility] Last Admin: 10/02/16 10:09 Dose: Not Given Magnesium Hydroxide (Milk Of Magnesium) 30 ml PO DAILY PRN PRN Reason: INDIGESTION Last Admin: 09/28/16 11:11 Dose: 30 ml Polyethylene Glycol (Miralax) 17 gm PO DAILY PRN PRN Reason: Constipation Timolol Maleate (Timoptic) 1 drop OPTH DAILY [facility] Last Admin: 10/02/16 10:07 Dose: 1 drop Objective - Vital Signs Vital Signs: Vital Signs - Last 24 Hrs Temp Pulse Resp BP BP Pulse Ox 10/02/16 10:11 98.6 F 61 16 104/55 95 10/02/16 04:46 98.7 F 59 L 16 145/68 94 L - General General Appearance: Alert, No acute distress, Other (oriented 2-3) - Head Head exam: Normal inspection Head exam detail: negative: Abrasion, Contusion - Eye Eye exam: Normal appearance, PERRL, EOMI Pupils: Normal accommodation - ENT ENT exam: Normal exam, Mucous membranes moist, Normal external ear exam, Normal orophraynx, TM's normal bilaterally Ear exam: Normal external inspection. negative: External canal tenderness Nasal Exam: Normal inspection. negative: Discharge, Sinus tenderness Mouth exam: Normal external inspection, Tongue normal Teeth exam: Normal inspection. negative: Dental caries Throat exam: Normal inspection. negative: Tonsillar erythema, Tonsillar exudate - Neck Neck exam: Normal inspection - Respiratory Respiratory exam: Normal lung sounds bilaterally - Cardiovascular Cardiovascular Exam: Regular rate, Normal rhythm, Systolic murmur, Other (right carotid bruit) Peripheral Pulses: 3+: Dorsalis Pedis (R), Dorsalis Pedis (L) - GI/Abdominal GI/Abdominal exam: Soft, Normal bowel sounds. negative: Tenderness - exam: Other (connelly catheter draining light yellow urine) - Extremities Extremities exam: Full ROM. 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) - Skin Type of lesion: abrasion (superficial, RLL) H&P Results - Labs Result Diagrams: 10/02/16 12:38 10/02/16 12:38 Labs Last 24 Hours: Laboratory Results - last 24 hr 10/02/16 10/02/16 12:38 12:38 WBC 6.8 RBC 3.91 L Hgb 12.0 L Hct 36.9 L MCV 94.4 MCH 30.6 MCHC 32.5 RDW 13.2 Plt Count 237 MPV 9.8 Gran % 53.3 Lymphocytes % 24.1 Monocytes % 14.3 H Eosinophils % 8.0 H Basophils % 0.3 Sodium 137 Potassium 3.9 Chloride 103 Carbon Dioxide 27.7 Anion Gap 6.3 L BUN 22 H Creatinine 1.0 Estimated GFR > 60 Random Glucose 113 H Calcium 8.8 Total Bilirubin 0.93 AST 20 ALT 28 Alkaline Phosphatase 95 Total Protein 6.9 Albumin 3.8 Globulin 3.1 Albumin/Globulin Ratio 1.2 Discharge Potential - Discharge Needs Community Services Used Prior to Admission: None Patient Discharge Plan Description: Return Home, Visiting Nurse Community Services Needed at Discharge: Home Delivered Meals, Home Health Aide, Home Health Nurse, Occupational Therapy, Physical Therapy Discharge Needs Comment: does not want [place], prefers [facility] for home care. on waiting list for [facility] Plan - Swing Bed Certification Initial Certification Due: 09/27/16 14 Day Re-Cert Due: 10/11/16 44 Day Re-Cert Due: 11/10/16 74 Day Re-Cert Due: 12/10/16 - Detailed Diagnosis and Plan (1) Weakness Current Visit: No Status: Acute Base Code: R53.1 - WEAKNESS Comment: : Overall improving. Had some fatigue today compared to yesterday but did work upstairs with PT yesterday afternoon. -repeat cbc, cmp and ua to eval for secondary causes of fatigue were all unremarkable. -continue PT/OT M-F - will need aggressive discharge plan to place patient in safest, least restrictive environment with the understanding this may require him moving out of his own home unless he has 24 hour supervision while living there (2) Urinary retention Current Visit: No Status: Acute Base Code: R33.9 - RETENTION OF URINE, UNSPECIFIED Comment: 10/02/16- Dr Knapp evaluated patient yesterday and removed connelly. Connelly had to be placed again last night due to persistent retention. nursing notified Dr. Bradley's office and he will see him again on Friday (3) Cognitive impairment Current Visit: Yes Status: Acute Base Code: R41.89 - OTH SYMPTOMS AND SIGNS W COGNITIVE FUNCTIONS AND AWARENESS Comment: 10/02/16- vascular dementia vs alzheimers vs other etiology. MOCA showing mild-moerate cognitive impairment with concern of executive functional status - will need aggressive discharge plan to place patient in safest, least restrictive environment with the understanding this may require him moving out of his own home unless he has 24 hour supervision while living there (4) Fall Current Visit: Yes Status: Acute Base Code: W19.XXXA - UNSPECIFIED FALL, INITIAL ENCOUNTER Comment: 10/02/16- fall at home with no injury, bilat hip x- rays in ED negative for fracture - continue to work with PT/OT - nursing to assist in room with ambuation - high fall risk precautions (5) DVT prophylaxis Current Visit: Yes Status: Acute Base Code: [id number] - Comment: 10/02/16: high risk: age, decreased mobility. patient ambulating to the rest room. Taking daily ASA and Plavix -patiet continues to work with PT and encourage frequent amb with nursing
--- NOTE | 2016-10-02 14:28 | Occupational Therapy Tx Note ---
Occupational Therapy Tx Note - Treatment Note Tolerated: Good Total Time Spent With Patient: 50 (ther ex, ther activity) Occupational Therapy Treatment Note: Detail (S: Pt resting in bed, ready for therapy. O: Supine to sit Indly. Sit to stand and amb 20 feet with 2 wheeled walker and CG assist. Pt then propelled self in wheelchair to rehab gym. Pt completed sudheer UE strengthening/endurance/coordination activities with overhead reaching, resisted clothespins and green theraputty. Sit to stand from wheelchair Indly and amb 50 feet with 2 wheeled walker and CG assist. Pt propelled self part way to room and then amb 40 feet with walker to bathroom. Pt toileted Indly. Amb to EOB and sit to supine Indly. A: Pt fatigued after treatment, left LE and left UE worse than right side.) Occupational Therapy Problem List: Detail (1. Decreased Ind with self care activities. 2. Decreased endurance needed for safe and Ind ADLs/IADLs. 3. Decreased functional mobility 4. Decreased UE function needed for safe and Ind ADLs/IADLs.) Occupational Therapy Goals: 1. Pt will be Ind with sponge bathing at sink. 2. Pt will be Ind with total body dressing 3. Pt will demonstrate increased endurance and Ind functional mobility needed for safe and Ind ADLs/IADLs 4. Pt will demonstrate WNL UE function needed for self cares. Prognosis: Good Occupational Therapy Plan: OT 2-4 days per week to address self cares, UE function, functional mobility and overall activity tolerance to allow safe and Ind return home.
[2016-10-02 16:37] LABS: URINE APPEARANCE CLEAR; URINE BILIRUBIN NEGATIVE (NEGATIVE); URINE BLOOD SMALL (NEGATIVE); URINE COLOR YELLOW; URINE GLUCOSE (UA) NEGATIVE (NEGATIVE); URINE KETONE NEGATIVE (NEGATIVE); URINE LEUKOCYTE ESTERASE NEGATIVE (NEGATIVE); URINE NITRITE NEGATIVE (NEGATIVE); URINE PROTEIN NEGATIVE (NEGATIVE); URINE UROBILINOGEN 0.2 E.U./dL (0.20 - 1.00)
[2016-10-02 16:47] LABS: URINE BACTERIA NONE SEEN; URINE EPITHELIAL CELLS 0 - 2 (FEW); URINE WBC 0 - 2 (0-2/hpf)
[2016-10-03] MEDS: ASPIRIN 81 MG TABEC PO SCH (09:31)
[2016-10-03] MEDS: LEVOTHYROXINE SODIUM 100 MCG TABLET PO SCH (09:34)
[2016-10-03] MEDS: ATORVASTATIN 20 MG TABLET PO SCH (09:35)
[2016-10-03] MEDS: AMLODIPINE BESYLATE 5MG TAB PO SCH (09:35)
[2016-10-03] MEDS: CLOPIDOGREL 75MG TABLET PO SCH (09:36)
[2016-10-03] MEDS: TIMOLOL MALEATE 0.5% 5ML BTL OPTH SCH (09:37)
[2016-10-03] MEDS: LISINOPRIL 20 MG TABLET PO SCH (09:38)
--- NOTE | 2016-10-03 13:00 | Physical Therapy Tx Note ---
Physical Therapy Tx Note - Treatment Note Tolerated: Good Total Time Spent With Patient: 30 Physical Therapy Tx Note: Detail (Patient states low back sore. Patient transferred sit to and from stand CGA x1. Patient ambulated 55 feet with wheeled walker CGA x1. Patient propelled self in wheelchair 200 feet using UEs. Patient transferred sit to and from stand CGA x1. Patient performed the following exercises x10 reps each: seated marching, seated hamstring curls with yellow theraband, seated toe raises, seated heel raises, LAQ, seated hip abduction with yellow theraband, isometric hip adduction, and seated low back stretch 3 x10 seconds each. Patient transferred sit to supine independently. Patient tolerated treatment well. Patient reports tired after treatment. Patient was left reclined in bed with tray and call light within reach.) Physical Therapy Problem List: Detail (1. Requires assist for bed mobility. 2. Left lower extremity weakness. 3. Requires assist w/transfers. 4. Difficulty walking. 5. Impaired activity tolerance. 6. Likely balance impairment.) Physical Therapy Goals: 1. Assess patient's balance using standardized balance test. 2. Pt will be safe and independent with bed mobility and transfers. 3. Pt will safely and independently ambulate 250 feet w/front wheeled walker. 4. Pt will tolerate 30 to 45 minutes of therapeutic activity without undue fatigue. 5. Pt will exhibit improved strength in initially weak lower extremity muscle groups, for greater stability with ambulation. Prognosis: Good Physical Therapy Plan: PT daily M-F for bed mobility, transfer, and gait/ balance training; instruction in LE strengthening exercises, facilitation of activity tolerance.
--- NOTE | 2016-10-03 16:12 | Physical Therapy Tx Note ---
Physical Therapy Tx Note - Treatment Note Tolerated: Good Total Time Spent With Patient: 35 Physical Therapy Tx Note: Detail (Pt. was in bed upon arrival. He reported doing well, "..just some back pain." Pt. ambulated approximately 15 feet. He was transported by wheelchair to the pt department. He completed 2 X 10 bicep curls with 3 lb., bilaterally; 2 X 10 hamstring curls, bilaterally, with green theraband; 2 X 10 tricep curls with green theraband; 2 X 10 short arc quads with yellow band, bilaterally and one, 30-second hold on L leg; 2 X 10 PNF diagonals for shoulder with 4 lb. ball, bilaterally; and trunk rotation with 4 lb. ball; two [id number]. Pt. tolerated treatment well. Strength improved in L leg, however, sit -to-stand is still difficult. Plan is to continue lower extremity strengthening and balance work.) Physical Therapy Problem List: Detail (1. Requires assist for bed mobility. 2. Left lower extremity weakness. 3. Requires assist w/transfers. 4. Difficulty walking. 5. Impaired activity tolerance. 6. Likely balance impairment.) Physical Therapy Goals: 1. Assess patient's balance using standardized balance test. 2. Pt will be safe and independent with bed mobility and transfers. 3. Pt will safely and independently ambulate 250 feet w/front wheeled walker. 4. Pt will tolerate 30 to 45 minutes of therapeutic activity without undue fatigue. 5. Pt will exhibit improved strength in initially weak lower extremity muscle groups, for greater stability with ambulation. Prognosis: Good Physical Therapy Plan: PT daily M-F for bed mobility, transfer, and gait/ balance training; instruction in LE strengthening exercises, facilitation of activity tolerance.
[2016-10-03] MEDS: LATANOPROST 0.005% OPTH SOLUTION 2.5ML BOTTLE OPTH SCH ×2 (22:42)
[2016-10-04] MEDS: LEVOTHYROXINE SODIUM 100 MCG TABLET PO SCH (06:11)
--- NOTE | 2016-10-04 08:35 | Occupational Therapy Tx Note ---
Occupational Therapy Tx Note - Treatment Note Tolerated: Good Total Time Spent With Patient: 60 (ADL, Ther ex) Occupational Therapy Treatment Note: Detail (S: Pt sleeping but awoke easily. O: Supine to sit Indly. Sit to stand and amb to toilet with 2 wheeled walker and SBA. Toileted Indly. Amb to sink and completed shaving, upper body bathing /dressing and oral hygiene in sitting, Indly. Pt amb 40 feet with 2 wheeled walker and SBA. Taken to rehab gym and completed sudheer UE coor/strengthening/ endurance activities with resisted clothespins and bolt box. Taken back to room and transferred to chair with SBA using walker. A: Ind with upper body ADLs in sitting, Improving UE function although left hand coor cont to be slightly impaired.) Occupational Therapy Problem List: Detail (1. Decreased Ind with self care activities. 2. Decreased endurance needed for safe and Ind ADLs/IADLs. 3. Decreased functional mobility 4. Decreased UE function needed for safe and Ind ADLs/IADLs.) Occupational Therapy Goals: 1. Pt will be Ind with sponge bathing at sink. 2. Pt will be Ind with total body dressing 3. Pt will demonstrate increased endurance and Ind functional mobility needed for safe and Ind ADLs/IADLs 4. Pt will demonstrate WNL UE function needed for self cares. Prognosis: Good Occupational Therapy Plan: OT 2-4 days per week to address self cares, UE function, functional mobility and overall activity tolerance to allow safe and Ind return home.
[2016-10-04] MEDS: CLOPIDOGREL 75MG TABLET PO SCH (09:13)
[2016-10-04] MEDS: ATORVASTATIN 20 MG TABLET PO SCH (09:13)
[2016-10-04] MEDS: ASPIRIN 81 MG TABEC PO SCH (09:13)
[2016-10-04] MEDS: TIMOLOL MALEATE 0.5% 5ML BTL OPTH SCH (09:14)
[2016-10-04] MEDS: LISINOPRIL 20 MG TABLET PO SCH (09:15)
[2016-10-04] MEDS: AMLODIPINE BESYLATE 5MG TAB PO SCH (09:15)
--- NOTE | 2016-10-04 12:26 | Physical Therapy Tx Note ---
Physical Therapy Tx Note - Treatment Note Tolerated: Good Total Time Spent With Patient: 30 Physical Therapy Tx Note: Detail (The patient was in bed when PT arrived. The patient acheived supine to sit independently with slowed movements. The patient required bed higher for sit to stand. Patient was unable to stand from a lower surface. The patient ambulated 100 feet x 1 with supervision for safety. The patient completed balance exercises in the Rehab department including balancing with varying bases of support in standing, standing on foam and LE strengthening exercises : squats x 10 ( hanging onto bar), L knee straightening in small range while seated for knee control, hip abduction, adduction slow controlled movements. Patient was returned to room and ambulated to chair. Patient was given lunch and call light.) Physical Therapy Problem List: Detail (1. Requires assist for bed mobility. 2. Left lower extremity weakness. 3. Requires assist w/transfers. 4. Difficulty walking. 5. Impaired activity tolerance. 6. Likely balance impairment.) Physical Therapy Goals: 1. Assess patient's balance using standardized balance test. 2. Pt will be safe and independent with bed mobility and transfers. 3. Pt will safely and independently ambulate 250 feet w/front wheeled walker. 4. Pt will tolerate 30 to 45 minutes of therapeutic activity without undue fatigue. 5. Pt will exhibit improved strength in initially weak lower extremity muscle groups, for greater stability with ambulation. Physical Therapy Plan: PT daily M-F for bed mobility, transfer, and gait/ balance training; instruction in LE strengthening exercises, facilitation of activity tolerance.
[2016-10-04] MEDS: LATANOPROST 0.005% OPTH SOLUTION 2.5ML BOTTLE OPTH SCH (21:24)
[2016-10-05] MEDS: LEVOTHYROXINE SODIUM 100 MCG TABLET PO SCH (06:07)
[2016-10-05] MEDS: TIMOLOL MALEATE 0.5% 5ML BTL OPTH SCH ×2 (07:49→09:45)
[2016-10-05] MEDS: AMLODIPINE BESYLATE 5MG TAB PO SCH ×2 (07:50→09:45)
[2016-10-05] MEDS: ASPIRIN 81 MG TABEC PO SCH ×2 (07:50→09:45)
[2016-10-05] MEDS: LISINOPRIL 20 MG TABLET PO SCH ×2 (07:51→09:45)
[2016-10-05] MEDS: ATORVASTATIN 20 MG TABLET PO SCH ×2 (07:51→09:45)
[2016-10-05] MEDS: CLOPIDOGREL 75MG TABLET PO SCH ×2 (07:51→09:45)
[2016-10-05] MEDS: LATANOPROST 0.005% OPTH SOLUTION 2.5ML BOTTLE OPTH SCH (21:40)
[2016-10-06] MEDS: LEVOTHYROXINE SODIUM 100 MCG TABLET PO SCH (06:37)
[2016-10-06] MEDS: AMLODIPINE BESYLATE 5MG TAB PO SCH (09:35)
[2016-10-06] MEDS: ATORVASTATIN 20 MG TABLET PO SCH (09:35)
[2016-10-06] MEDS: ASPIRIN 81 MG TABEC PO SCH (09:35)
[2016-10-06] MEDS: CLOPIDOGREL 75MG TABLET PO SCH (09:36)
[2016-10-06] MEDS: LISINOPRIL 20 MG TABLET PO SCH (09:36)
[2016-10-06] MEDS: TIMOLOL MALEATE 0.5% 5ML BTL OPTH SCH (09:36)
[2016-10-06] MEDS: LATANOPROST 0.005% OPTH SOLUTION 2.5ML BOTTLE OPTH SCH (22:04)
[2016-10-06] MEDS: MAGNESIUM HYDROXIDE 30 ML UDC PO PRN (22:05)
[2016-10-07] MEDS: LEVOTHYROXINE SODIUM 100 MCG TABLET PO SCH (06:18)
[2016-10-07] MEDS: ACETAMINOPHEN 500 MG TABLET PO PRN (08:07)
[2016-10-07] MEDS: CLOPIDOGREL 75MG TABLET PO SCH (09:56)
[2016-10-07] MEDS: ATORVASTATIN 20 MG TABLET PO SCH (09:56)
[2016-10-07] MEDS: AMLODIPINE BESYLATE 5MG TAB PO SCH (09:56)
[2016-10-07] MEDS: TIMOLOL MALEATE 0.5% 5ML BTL OPTH SCH (09:57)
[2016-10-07] MEDS: LISINOPRIL 20 MG TABLET PO SCH (09:57)
--- NOTE | 2016-10-07 10:49 | Occupational Therapy Tx Note ---
Occupational Therapy Tx Note - Treatment Note Tolerated: Fair Total Time Spent With Patient: 30 (ther activity) Occupational Therapy Treatment Note: Detail (S: Pt reports having a headache this morning but would like to get out of room. O: Supine to sit Indly. Sit to stand and amb 30 feet with 2 wheeled walker and SBA. Pt worked on wheelchair mobility/UE coor and strengthening. Green theraputty for sudheer hand strengthening/coor. Pt amb to bathroom and toileted with assist to untie and tie hospital pants. Amb to EOB with walker and sit to supine Indly. Scooted up in bed with mod assist. A: Headache impairing pts tolerance for activity today. Left UE cont. with decreased strength and endurance.) Occupational Therapy Problem List: Detail (1. Decreased Ind with self care activities. 2. Decreased endurance needed for safe and Ind ADLs/IADLs. 3. Decreased functional mobility 4. Decreased UE function needed for safe and Ind ADLs/IADLs.) Occupational Therapy Goals: 1. Pt will be Ind with sponge bathing at sink. 2. Pt will be Ind with total body dressing 3. Pt will demonstrate increased endurance and Ind functional mobility needed for safe and Ind ADLs/IADLs 4. Pt will demonstrate WNL UE function needed for self cares. Prognosis: Good Occupational Therapy Plan: OT 2-4 days per week to address self cares, UE function, functional mobility and overall activity tolerance to allow safe and Ind return home.
[2016-10-07] MEDS: ASPIRIN 81 MG TABEC PO SCH (15:19)
--- NOTE | 2016-10-07 16:01 | Physical Therapy Tx Note ---
Physical Therapy Tx Note - Treatment Note Tolerated: Good Total Time Spent With Patient: 30 Physical Therapy Tx Note: Detail (Patient states back has been feeling better since doing exercises. Patient transferred sit to and from stand CGA x1. Patient ambulated 230 feet with wheeled walker SBA x1. Patient performed the following exercises x10 reps each: seated marching, LAQ, hamstring curls with yellow theraband, seated hip abduction with yellow theraband, seated heel raises , and seated toe raises. Patient tolerated treatment well. Patient displays fatigue with ambulation. Patient reports no complaints after treatment. Patient was left seated in chair with call light within reach.) Physical Therapy Problem List: Detail (1. Requires assist for bed mobility. 2. Left lower extremity weakness. 3. Requires assist w/transfers. 4. Difficulty walking. 5. Impaired activity tolerance. 6. Likely balance impairment.) Physical Therapy Goals: 1. Assess patient's balance using standardized balance test. 2. Pt will be safe and independent with bed mobility and transfers. 3. Pt will safely and independently ambulate 250 feet w/front wheeled walker. 4. Pt will tolerate 30 to 45 minutes of therapeutic activity without undue fatigue. 5. Pt will exhibit improved strength in initially weak lower extremity muscle groups, for greater stability with ambulation. Prognosis: Good Physical Therapy Plan: PT daily M-F for bed mobility, transfer, and gait/ balance training; instruction in LE strengthening exercises, facilitation of activity tolerance.
[2016-10-07] MEDS: LATANOPROST 0.005% OPTH SOLUTION 2.5ML BOTTLE OPTH SCH (21:28)
[2016-10-08] MEDS: ACETAMINOPHEN 500 MG TABLET PO PRN (06:03)
[2016-10-08] MEDS: LEVOTHYROXINE SODIUM 100 MCG TABLET PO SCH (06:03)
[2016-10-08] MEDS: TIMOLOL MALEATE 0.5% 5ML BTL OPTH SCH (09:20)
[2016-10-08] MEDS: ATORVASTATIN 20 MG TABLET PO SCH (09:21)
[2016-10-08] MEDS: AMLODIPINE BESYLATE 5MG TAB PO SCH (09:22)
[2016-10-08] MEDS: LISINOPRIL 20 MG TABLET PO SCH (09:22)
[2016-10-08] MEDS: CLOPIDOGREL 75MG TABLET PO SCH (09:22)
[2016-10-08] MEDS: ASPIRIN 81 MG TABEC PO SCH (09:26)
--- NOTE | 2016-10-08 13:05 | Occupational Therapy Tx Note ---
Occupational Therapy Tx Note - Treatment Note Tolerated: Fair Total Time Spent With Patient: 45 (ADL, ther ex) Occupational Therapy Treatment Note: Detail (S: Pt still c/o slight headache. O Pt doffed PJ bottoms and donned underpants and pants with min assist for sit to stand, CG for static standing and min assist for catheter adjustment. Pt amb 15 feet to wheelchair with 2 wheeled walker and CG assist, and brought to rehab. Pt completed sudheer UE AROM, strengthening and coordination tasks with bolt box, resisted clothespins. Completed static standing and reaching activity with cones and shoulder height reaching to fatigue. Pt transported back to room via wheelchair. A: Pt presented with slightly increased confusion /apraxia today with dressing activity, left UE coordination impairment continues , required more physical assist for sit to stand from chair.) Occupational Therapy Problem List: Detail (1. Decreased Ind with self care activities. 2. Decreased endurance needed for safe and Ind ADLs/IADLs. 3. Decreased functional mobility 4. Decreased UE function needed for safe and Ind ADLs/IADLs.) Occupational Therapy Goals: 1. Pt will be Ind with sponge bathing at sink. 2. Pt will be Ind with total body dressing 3. Pt will demonstrate increased endurance and Ind functional mobility needed for safe and Ind ADLs/IADLs 4. Pt will demonstrate WNL UE function needed for self cares. Prognosis: Good Occupational Therapy Plan: OT 2-4 days per week to address self cares, UE function, functional mobility and overall activity tolerance to allow safe and Ind return home.
--- NOTE | 2016-10-08 13:46 | Physical Therapy Tx Note ---
Physical Therapy Tx Note - Treatment Note Tolerated: Good Total Time Spent With Patient: 25 Physical Therapy Tx Note: Detail (The patient was sitting up in chair when PT arrived visiting with his granddaughters. The patient required 2 attempts with sit to stand and was able to stand x 1 independently and required moderate Pa x1. The patient ambulated 30 feet x 2 with wheeled walker with CG of 1. Patient had increased L foot drag today and was able to take bigger steps and not drag L foot when verbal cued. The patient had loss of balance when turning to get back in bed. The patient acheived supine to sit independently and was able to scoot up in bed with moderate PA for last push. The patient was given call light and left with family. The patient's granddaughter stated that patient reported seeing a chair when he was resting in the hallway. She reports she believes he has been hallucinating occasionally. The patient increased fatigued today and unsteadiness.) Physical Therapy Problem List: Detail (1. Requires assist for bed mobility. 2. Left lower extremity weakness. 3. Requires assist w/transfers. 4. Difficulty walking. 5. Impaired activity tolerance. 6. Likely balance impairment.) Physical Therapy Goals: 1. Assess patient's balance using standardized balance test. 2. Pt will be safe and independent with bed mobility and transfers. 3. Pt will safely and independently ambulate 250 feet w/front wheeled walker. 4. Pt will tolerate 30 to 45 minutes of therapeutic activity without undue fatigue. 5. Pt will exhibit improved strength in initially weak lower extremity muscle groups, for greater stability with ambulation. Physical Therapy Plan: PT daily M-F for bed mobility, transfer, and gait/ balance training; instruction in LE strengthening exercises, facilitation of activity tolerance.
[2016-10-08] MEDS ORDERED: TAMSULOSIN HCL 0.4 MG CAP.ER.24H PO ONE (19:58)
[2016-10-08] MEDS: LATANOPROST 0.005% OPTH SOLUTION 2.5ML BOTTLE OPTH SCH (22:25)
[2016-10-08] MEDS: CIPROFLOXACIN HCL 500 MG TABLET PO SCH (22:25)
[2016-10-09] MEDS: LEVOTHYROXINE SODIUM 100 MCG TABLET PO SCH (06:02)
[2016-10-09] MEDS: CIPROFLOXACIN HCL 500 MG TABLET PO SCH (09:13)
[2016-10-09] MEDS: TAMSULOSIN HCL 0.4 MG CAP.ER.24H PO SCH (09:14)
[2016-10-09] MEDS: ASPIRIN 81 MG TABEC PO SCH (09:14)
[2016-10-09] MEDS: CLOPIDOGREL 75MG TABLET PO SCH (09:15)
[2016-10-09] MEDS: AMLODIPINE BESYLATE 5MG TAB PO SCH (09:15)
[2016-10-09] MEDS: TIMOLOL MALEATE 0.5% 5ML BTL OPTH SCH (09:15)
[2016-10-09] MEDS: LISINOPRIL 20 MG TABLET PO SCH (09:15)
[2016-10-09] MEDS: ATORVASTATIN 20 MG TABLET PO SCH (09:15)
--- NOTE | 2016-10-09 13:56 | Physical Therapy Tx Note ---
Physical Therapy Tx Note - Treatment Note Tolerated: Good Total Time Spent With Patient: 30 Physical Therapy Tx Note: Detail (The patient was sitting on the edge of the bed when family arrived. The patient acheived sit to stand independently . The patient ambulated with wheeled walker with CG for safety a distance of 60 feet x 1. Less L foot drag was noted. Balance exercises: ambulation with varying bases of support, ambulation with walker sideways. The patient stated that his walker does not fit through the bathroom door, so gait training with standard cane was completed with CG of 1 and verbal cues for safety. The patient also practiced ambulating sideways. The patient returned to room and acheived supine to and from sit independently.) Physical Therapy Problem List: Detail (1. Requires assist for bed mobility. 2. Left lower extremity weakness. 3. Requires assist w/transfers. 4. Difficulty walking. 5. Impaired activity tolerance. 6. Likely balance impairment.) Physical Therapy Goals: 1. Assess patient's balance using standardized balance test. 2. Pt will be safe and independent with bed mobility and transfers. 3. Pt will safely and independently ambulate 250 feet w/front wheeled walker. 4. Pt will tolerate 30 to 45 minutes of therapeutic activity without undue fatigue. 5. Pt will exhibit improved strength in initially weak lower extremity muscle groups, for greater stability with ambulation. Physical Therapy Plan: PT daily M-F for bed mobility, transfer, and gait/ balance training; instruction in LE strengthening exercises, facilitation of activity tolerance.
--- NOTE | 2016-10-09 15:13 | Occupational Therapy Tx Note ---
Occupational Therapy Tx Note - Treatment Note Tolerated: Good Total Time Spent With Patient: 45 (ther ex) Occupational Therapy Treatment Note: Detail (S: Pt up in chair. O: Sit to stand with SBA, amb 75 feet with 2 wheeled walker and CG assist. Transported to rehab gym via wheelchair. Pt completed sudheer UE strengthening, endurance and coordination activities with shoulder arc, clothespins and purdue pegboard. Transported back to room via wc. Amb to EOB with SBA and 2ww. A: Improved UE endurance and coor although left hand coor continues to be impaired. Improved functional mobility, specifically ambulation and sit to stand.) Occupational Therapy Problem List: Detail (1. Decreased Ind with self care activities. 2. Decreased endurance needed for safe and Ind ADLs/IADLs. 3. Decreased functional mobility 4. Decreased UE function needed for safe and Ind ADLs/IADLs.) Occupational Therapy Goals: 1. Pt will be Ind with sponge bathing at sink. 2. Pt will be Ind with total body dressing 3. Pt will demonstrate increased endurance and Ind functional mobility needed for safe and Ind ADLs/IADLs 4. Pt will demonstrate WNL UE function needed for self cares. Prognosis: Good Occupational Therapy Plan: OT 2-4 days per week to address self cares, UE function, functional mobility and overall activity tolerance to allow safe and Ind return home.
[2016-10-09] MEDS: LATANOPROST 0.005% OPTH SOLUTION 2.5ML BOTTLE OPTH SCH (21:18)
[2016-10-10] MEDS: LEVOTHYROXINE SODIUM 100 MCG TABLET PO SCH (06:05)
[2016-10-10] MEDS: ATORVASTATIN 20 MG TABLET PO SCH (10:58)
[2016-10-10] MEDS: CLOPIDOGREL 75MG TABLET PO SCH (10:58)
[2016-10-10] MEDS: LISINOPRIL 20 MG TABLET PO SCH (10:58)
[2016-10-10] MEDS: ASPIRIN 81 MG TABEC PO SCH (10:58)
[2016-10-10] MEDS: TAMSULOSIN HCL 0.4 MG CAP.ER.24H PO SCH (10:58)
[2016-10-10] MEDS: TIMOLOL MALEATE 0.5% 5ML BTL OPTH SCH (10:59)
[2016-10-10] MEDS: AMLODIPINE BESYLATE 5MG TAB PO SCH (10:59)
--- NOTE | 2016-10-10 11:52 | Physical Therapy Tx Note ---
Physical Therapy Tx Note - Treatment Note Tolerated: Fair Total Time Spent With Patient: 20 Physical Therapy Tx Note: Detail (Patient was seated in bathroom upon [employer] arrival. Patient reports feeling tired today. Patient transferred sit to and from stand SBA x1. Patient ambulated 61 feet with wheeled walker SBA x1. Patient transferred sit to and from stand SBA x1. Patient ambulated 59 feet with wheeled walker SBA x1. Patient transferred sit to supine independently. Patient scooted up in bed independently. Patient performed the following exercises x5 second hold 3 reps each: supine hamstring stretch, double knee to chest stretch, lower trunk rotation, crossed leg stretch. Patient tolerated treatment well. Patient required seated rest break with ambulation due to fatigue. Patient was left supine in bed with call light within reach.) Physical Therapy Problem List: Detail (1. Requires assist for bed mobility. 2. Left lower extremity weakness. 3. Requires assist w/transfers. 4. Difficulty walking. 5. Impaired activity tolerance. 6. Likely balance impairment.) Physical Therapy Goals: 1. Assess patient's balance using standardized balance test. 2. Pt will be safe and independent with bed mobility and transfers. 3. Pt will safely and independently ambulate 250 feet w/front wheeled walker. 4. Pt will tolerate 30 to 45 minutes of therapeutic activity without undue fatigue. 5. Pt will exhibit improved strength in initially weak lower extremity muscle groups, for greater stability with ambulation. Prognosis: Good Physical Therapy Plan: PT daily M-F for bed mobility, transfer, and gait/ balance training; instruction in LE strengthening exercises, facilitation of activity tolerance.
--- NOTE | 2016-10-10 14:27 | Physical Therapy Tx Note ---
Physical Therapy Tx Note - Treatment Note Tolerated: Good Total Time Spent With Patient: 45 Physical Therapy Tx Note: Detail (Patient states low back feels good this afternoon. Patient states feels more rested this afternoon. Patient transferred sit to and from stand SBA x1. Patient ambulated 130 feet with wheeled walker CGA x1. Patient transferred sit to and from stand CGA x1. Patient performed the following exercises: sidestepping with walker x10 feet each, walking backwards x20 feet, standing marching x10 reps, DLS balance x30 seconds, DLS with eyes closed x30 seconds, stride stance x30 seconds, DLS with looking up and down x30 seconds, DLS with looking side to side x30 seconds. Patient propelled self in wheelchair x20 feet. Patient transferred sit to and from stand CGA x1. Patient performed standing #2 ball taps on cupboard x10 reps. Patient propelled self in wheelchair 176 feet. Patient transferred sit to and from stand CGA x1. Patient ambulated 13 feet with wheeled walker CGA x1. Patient tolerated treatment well. Patient displays decreased strength and endurance with standing balance exercises. Patient displays decreased balance with stride stance, and DLS with eyes closed. Patient reports fatigued after treatment. Patient was left seated in bathroom with pull cord within reach.) Physical Therapy Problem List: Detail (1. Requires assist for bed mobility. 2. Left lower extremity weakness. 3. Requires assist w/transfers. 4. Difficulty walking. 5. Impaired activity tolerance. 6. Likely balance impairment.) Physical Therapy Goals: 1. Assess patient's balance using standardized balance test. 2. Pt will be safe and independent with bed mobility and transfers. 3. Pt will safely and independently ambulate 250 feet w/front wheeled walker. 4. Pt will tolerate 30 to 45 minutes of therapeutic activity without undue fatigue. 5. Pt will exhibit improved strength in initially weak lower extremity muscle groups, for greater stability with ambulation. Prognosis: Good Physical Therapy Plan: PT daily M-F for bed mobility, transfer, and gait/ balance training; instruction in LE strengthening exercises, facilitation of activity tolerance.
[2016-10-10] MEDS: LATANOPROST 0.005% OPTH SOLUTION 2.5ML BOTTLE OPTH SCH (22:09)
[2016-10-11] MEDS: LEVOTHYROXINE SODIUM 100 MCG TABLET PO SCH (06:20)
--- NOTE | 2016-10-11 09:56 | Occupational Therapy Tx Note ---
Occupational Therapy Tx Note - Treatment Note Tolerated: Good Total Time Spent With Patient: 45 (ADL) Occupational Therapy Treatment Note: Detail (S: Pt in good spirits, feeling good today. O: Supine to sit Indly. Pt amb to sink with 2 wheeled walker Indly. Stood at sink and completed shaving with electric razor Indly. Doffed flannel shirt, t-shirt Indly in standing. Pt sat at sink and completed upper body sponge bathing Indly. Stood and pulled briefs over hips to wash laurie area Indly while holding onto sink. Sat and washed legs Indly. Amb to chair with walker and donned t-shirt, flannel shirt and pants with min assist for catheter adjustment. A: Ind with sponge bathing at sink in sitting and standing, Improved Ind with sit to stand with min. verbal cues, requires min assist for catheter during dressing. Significant improvement with static standing balance and tolerance as well as UE coordination.) Occupational Therapy Problem List: Detail (1. Decreased Ind with self care activities. 2. Decreased endurance needed for safe and Ind ADLs/IADLs. 3. Decreased functional mobility 4. Decreased UE function needed for safe and Ind ADLs/IADLs.) Occupational Therapy Goals: 1. Pt will be Ind with sponge bathing at sink. 2. Pt will be Ind with total body dressing 3. Pt will demonstrate increased endurance and Ind functional mobility needed for safe and Ind ADLs/IADLs 4. Pt will demonstrate WNL UE function needed for self cares. Prognosis: Good Occupational Therapy Plan: OT 2-4 days per week to address self cares, UE function, functional mobility and overall activity tolerance to allow safe and Ind return home.
[2016-10-11] MEDS: ASPIRIN 81 MG TABEC PO SCH (10:09)
[2016-10-11] MEDS: TAMSULOSIN HCL 0.4 MG CAP.ER.24H PO SCH (10:09)
[2016-10-11] MEDS: ATORVASTATIN 20 MG TABLET PO SCH (10:09)
[2016-10-11] MEDS: AMLODIPINE BESYLATE 5MG TAB PO SCH (10:10)
[2016-10-11] MEDS: LISINOPRIL 20 MG TABLET PO SCH (10:10)
[2016-10-11] MEDS: CLOPIDOGREL 75MG TABLET PO SCH (10:10)
[2016-10-11] MEDS: TIMOLOL MALEATE 0.5% 5ML BTL OPTH SCH (10:11)
--- NOTE | 2016-10-11 11:00 | Physician Progress Note ---
Subjective - Date Date of Progress Note: 10/11/16 - Admitting Diagnosis Diagnosis: Weakness - Subjective Nursing Care Plan Problem List Activity Intolerance (Swing Bed) Start: 09/27/16 15: 51 Freq: Status: Active Created 09/27/16 15:51 [facility] (Rec: 09/27/16 15:51 [id number]) Altered Urinary Elimination Pattern Start: 09/27/16 16: 47 Freq: Status: Active Created 09/27/16 16:47 [facility] (Rec: 09/27/16 16:47 [facility] [id number]) Impaired Mobility Start: 09/27/16 16: 47 Freq: Status: Active Created 09/27/16 16:47 [facility] (Rec: 09/27/16 16:47 [facility] [id number]) Impaired Skin Integrity Start: 09/27/16 16: 47 Freq: Status: Active Created 09/27/16 16:47 [facility] (Rec: 09/27/16 16:47 [id number]) Knowledge Deficit (Swing Bed) Start: 09/27/16 15: 51 Freq: Status: Active Created 09/27/16 15:51 [facility] (Rec: 09/27/16 15:51 [id number]) Pain (Swing Bed) Start: 09/27/16 15: 51 Freq: Status: Active Created 09/27/16 15:51 [facility] (Rec: 09/27/16 15:51 [facility] [id number]) Risk For Falls (Swing Bed) Start: 09/27/16 16: 47 Freq: Status: Active Created 09/27/16 16:47 [facility] (Rec: 09/27/16 16:47 [facility] [id number]) General - Communication Select best description of speech pattern: Unclear Speech Ability to express ideas and wants: Usually Understood Understanding verbal content: Usually Understands - Physical Functioning Activity Level: Up with assist x1 Turning: With partial assist ROM Ability: Within Normal Limits, Moves all extremities, Limited/Compromised Assistive Devices: 2 Wheel Walker Ambulation Ability: Needs Assist Bed Mobility: Needs Assist Transfer Ability: Needs Assist Bathing Ability: Needs Assist Personal Hygiene: Needs Assist Dressing Ability: Needs Assist Eating (Feeding) Ability: Independent Toileting Ability: Needs Assist Administer Own Medication: Needs Assist - Continence Bowel Pattern: Normal for Patient Bladder Pattern: Retention Meds/Allergies - Allergies Allergies Allergy/AdvReac Type Severity Reaction Status Date / Time No Known Drug Allergies Allergy Verified 09/09/15 17:27 - Active Medications Current Medications Acetaminophen (Tylenol 500mg Tab) 1,000 mg PO Q6H PRN PRN Reason: Pain - General Last Admin: 10/08/16 06:03 Dose: 1,000 mg Amlodipine Besylate (Norvasc) 5 mg PO DAILY [facility] Last Admin: 10/11/16 10:10 Dose: 5 mg Aspirin (Ecotrin (Ec)) 81 mg PO DAILY [facility] Last Admin: 10/11/16 10:09 Dose: 81 mg Atorvastatin Calcium (Lipitor) 40 mg PO DAILY [facility] Last Admin: 10/11/16 10:09 Dose: 40 mg Clopidogrel Bisulfate (Plavix) 75 mg PO DAILY [facility] Last Admin: 10/11/16 10:10 Dose: 75 mg Latanoprost (Xalatan) 1 drop OPTH QHS [facility] Last Admin: 10/10/16 22:09 Dose: 1 drop Levothyroxine Sodium (Synthroid) 100 mcg PO DAILYTHY [facility] Last Admin: 10/11/16 06:20 Dose: 100 mcg Lisinopril (Zestril) 20 mg PO DAILY [facility] Last Admin: 10/11/16 10:10 Dose: 20 mg Magnesium Hydroxide (Milk Of Magnesium) 30 ml PO DAILY PRN PRN Reason: INDIGESTION Last Admin: 10/06/16 22:05 Dose: 30 ml Polyethylene Glycol (Miralax) 17 gm PO DAILY PRN PRN Reason: Constipation Last Admin: 10/08/16 09:22 Dose: 17 gm Tamsulosin HCl (Flomax) 0.4 mg PO DAILY [facility] Last Admin: 10/11/16 10:09 Dose: 0.4 mg Timolol Maleate (Timoptic) 1 drop OPTH DAILY [facility] Last Admin: 10/11/16 10:11 Dose: 1 drop Objective - Vital Signs Vital Signs: Vital Signs - Last 24 Hrs Temp Pulse Resp BP Pulse Ox 10/11/16 08:32 99.0 F 81 18 131/88 96 - General General Appearance: Alert, No acute distress, Other (oriented 2-3) - Head Head exam: Normal inspection Head exam detail: negative: Abrasion, Contusion - Eye Eye exam: Normal appearance, PERRL, EOMI Pupils: Normal accommodation - ENT ENT exam: Normal exam, Mucous membranes moist, Normal external ear exam, Normal orophraynx, TM's normal bilaterally Ear exam: Normal external inspection. negative: External canal tenderness Nasal Exam: Normal inspection. negative: Discharge, Sinus tenderness Mouth exam: Normal external inspection, Tongue normal Teeth exam: Normal inspection. negative: Dental caries Throat exam: Normal inspection. negative: Tonsillar erythema, Tonsillar exudate - Neck Neck exam: Normal inspection - Respiratory Respiratory exam: Normal lung sounds bilaterally - Cardiovascular Cardiovascular Exam: Regular rate, Normal rhythm, Systolic murmur, Other (right carotid bruit) Peripheral Pulses: 3+: Dorsalis Pedis (R), Dorsalis Pedis (L) - GI/Abdominal GI/Abdominal exam: Soft, Normal bowel sounds. negative: Tenderness - exam: Other (connelly catheter draining light yellow urine) - Extremities Extremities exam: Full ROM. 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 on waiting list for [facility] Plan - Swing Bed Certification Initial Certification Due: 09/27/16 14 Day Re-Cert Due: 10/11/16 44 Day Re-Cert Due: 11/10/16 74 Day Re-Cert Due: 12/10/16 - Detailed Diagnosis and Plan (1) Acute CVA (cerebrovascular accident) Status: Acute Base Code: I63.9 - CEREBRAL INFARCTION, UNSPECIFIED Comment: : suspected acute cerebrovascular accident. Head CT negative. - Patient continues to deny CP, SOB, confusion, fever, chills, upper/lower extremity weakness, vision changes, or room spinning. - pt's weakness & balance working with PT - Neurologic exam relatively unremarkable aside from abnormal gait. - continue home meds - ambulation as tolerated with walker and assistance - PT/OT services at home. - follow up with primary physician Dr. Negrete on October 21 at 230. - family will need to discuss geriatric psych evaluation with primary physician. patient's daughter made aware of this. (2) Cognitive impairment Status: Acute Base Code: R41.89 - OTH SYMPTOMS AND SIGNS W COGNITIVE FUNCTIONS AND AWARENESS Comment: 10/11/16- vascular dementia vs alzheimers vs other etiology. MOCA showing mild-moerate cognitive impairment with concern of executive functional status (3) Urinary retention Status: Acute Base Code: R33.9 - RETENTION OF URINE, UNSPECIFIED Comment: 05/18- Connelly still in place, follows with Dr. Knapp (4) Weakness Status: Acute Base Code: R53.1 - WEAKNESS Comment: 10/11/16: working with PT to improve strength
--- NOTE | 2016-10-11 14:54 | Physical Therapy Tx Note ---
Physical Therapy Tx Note - Treatment Note Tolerated: Good Total Time Spent With Patient: 35 Physical Therapy Tx Note: Detail (Patient states tired this afternoon, low back feels good. Patient transferred sit to and from stand CGA x1. Patient ambulated 60 feet with wheeled walker CGA x1. Patient transferred sit to and from stand CGA x1. Patient ambulated 290 feet with wheeled walker CGA x1. Patient required verbal cueing to clear left foot with ambulation and good standing posture. Patient performed the following exercises: standing marching x10, standing hamstring curls x10, feet together x30 seconds, DLS with eyes closed x30 seconds, and stride stance x30 seconds each. Patient transferred sit to supine independently. Patient scooted up in bed independently. Patient displays decreased balance with feet together, DLS with eyes closed, and stride stance. Patient reports fatigued this afternoon. Patient was left supine in bed with call light within reach.) Physical Therapy Problem List: Detail (1. Requires assist for bed mobility. 2. Left lower extremity weakness. 3. Requires assist w/transfers. 4. Difficulty walking. 5. Impaired activity tolerance. 6. Likely balance impairment.) Physical Therapy Goals: 1. Assess patient's balance using standardized balance test. 2. Pt will be safe and independent with bed mobility and transfers. 3. Pt will safely and independently ambulate 250 feet w/front wheeled walker. 4. Pt will tolerate 30 to 45 minutes of therapeutic activity without undue fatigue. 5. Pt will exhibit improved strength in initially weak lower extremity muscle groups, for greater stability with ambulation. Prognosis: Good Physical Therapy Plan: PT daily M-F for bed mobility, transfer, and gait/ balance training; instruction in LE strengthening exercises, facilitation of activity tolerance.
[2016-10-12] MEDS: LATANOPROST 0.005% OPTH SOLUTION 2.5ML BOTTLE OPTH SCH ×2 (00:08→22:22)
[2016-10-12] MEDS: LEVOTHYROXINE SODIUM 100 MCG TABLET PO SCH (07:01)
[2016-10-12] MEDS: CLOPIDOGREL 75MG TABLET PO SCH (09:53)
[2016-10-12] MEDS: ATORVASTATIN 20 MG TABLET PO SCH (09:53)
[2016-10-12] MEDS: TAMSULOSIN HCL 0.4 MG CAP.ER.24H PO SCH (09:53)
[2016-10-12] MEDS: LISINOPRIL 20 MG TABLET PO SCH (09:53)
[2016-10-12] MEDS: AMLODIPINE BESYLATE 5MG TAB PO SCH (09:54)
[2016-10-12] MEDS: ASPIRIN 81 MG TABEC PO SCH (09:54)
[2016-10-12] MEDS: TIMOLOL MALEATE 0.5% 5ML BTL OPTH SCH (09:55)
[2016-10-13] MEDS: LEVOTHYROXINE SODIUM 100 MCG TABLET PO SCH (06:21)
[2016-10-13] MEDS: ASPIRIN 81 MG TABEC PO SCH (09:34)
[2016-10-13] MEDS: TAMSULOSIN HCL 0.4 MG CAP.ER.24H PO SCH (09:35)
[2016-10-13] MEDS: LISINOPRIL 20 MG TABLET PO SCH (09:35)
[2016-10-13] MEDS: AMLODIPINE BESYLATE 5MG TAB PO SCH (09:35)
[2016-10-13] MEDS: CLOPIDOGREL 75MG TABLET PO SCH (09:36)
[2016-10-13] MEDS: ATORVASTATIN 20 MG TABLET PO SCH (09:36)
[2016-10-13] MEDS: TIMOLOL MALEATE 0.5% 5ML BTL OPTH SCH (09:36)
[2016-10-13] MEDS: LATANOPROST 0.005% OPTH SOLUTION 2.5ML BOTTLE OPTH SCH (22:31)
[2016-10-14] MEDS: LEVOTHYROXINE SODIUM 100 MCG TABLET PO SCH (06:59)
[2016-10-14] MEDS: CLOPIDOGREL 75MG TABLET PO SCH (10:50)
[2016-10-14] MEDS: ATORVASTATIN 20 MG TABLET PO SCH (10:53)
[2016-10-14] MEDS: TAMSULOSIN HCL 0.4 MG CAP.ER.24H PO SCH (10:53)
[2016-10-14] MEDS: ASPIRIN 81 MG TABEC PO SCH (10:53)
[2016-10-14] MEDS: TIMOLOL MALEATE 0.5% 5ML BTL OPTH SCH (10:54)
[2016-10-14] MEDS: AMLODIPINE BESYLATE 5MG TAB PO SCH (10:56)
[2016-10-14] MEDS: LISINOPRIL 20 MG TABLET PO SCH (10:56)
--- NOTE | 2016-10-14 11:05 | Physical Therapy Tx Note ---
Physical Therapy Tx Note - Treatment Note Tolerated: Good Total Time Spent With Patient: 35 Physical Therapy Tx Note: Detail (The patient was sleeping in bed when PT arrived. The patient acheived supine to and from sit transfer independently and independent sit to and from stand transfer independently. The patient ambulated with wheeled walker 75 feet x 1 and 35 feet x 1 with supervision for safety. No L foot drag was noted. The patient ambulated on 3 steps x 2 with one railing, one cane with CG of 1, Supervision for safety of 1. The patient leaned back slightly when going down the 7 in step. The patient was fatigued after stair climbing and requested to go back to bed. The patient's wheels on walker were turned in to allow for clearance of doorway in his bathroom at home. ) Physical Therapy Problem List: Detail (1. Requires assist for bed mobility. 2. Left lower extremity weakness. 3. Requires assist w/transfers. 4. Difficulty walking. 5. Impaired activity tolerance. 6. Likely balance impairment.) Physical Therapy Goals: 1. Assess patient's balance using standardized balance test. 2. Pt will be safe and independent with bed mobility and transfers. 3. Pt will safely and independently ambulate 250 feet w/front wheeled walker. 4. Pt will tolerate 30 to 45 minutes of therapeutic activity without undue fatigue. 5. Pt will exhibit improved strength in initially weak lower extremity muscle groups, for greater stability with ambulation. Physical Therapy Plan: PT daily M-F for bed mobility, transfer, and gait/ balance training; instruction in LE strengthening exercises, facilitation of activity tolerance.
--- NOTE | 2016-10-14 13:12 | ULTRASOUND REPORT ---
EXAM: PROSTATE ULTRASOUND HISTORY: ENLARGED PROSTATE. TECHNIQUE: Real-time joe scale transrectal ultrasound of the prostate gland was performed. Comparison: None. FINDINGS: The prostate gland is moderately enlarged with a few central coarse calcifications. No discreet nodule. Haile catheter in place. The prostate gland measures 5.2 x 3.7 x 5.4 cm with a volume of 53.8 ml. Predicted PSA is 6.4. IMPRESSION: 1. MODERATELY ENLARGED PROSTATE GLAND WITH NO DISCREET NODULE. THIS COULD RELATE TO BPH ALTHOUGH CORRELATE WITH PSA LEVELS. 2. PREDICTED PSA IS 6.4. JOB NUMBER: [id number] MTDD
--- NOTE | 2016-10-14 14:53 | Occupational Therapy Tx Note ---
Occupational Therapy Tx Note - Treatment Note Tolerated: Fair Total Time Spent With Patient: 30 (Ther Ex) Occupational Therapy Treatment Note: Detail (S: Pt sleeping but awoke easily. O: Supine to sit Indly. Sit to stand Indly but with mild difficulty. Amb 30 feet with 2 wheeled walker and SBA. Transported to rehab gym via wheelchair. Pt participated in sudheer UE strengthening and coordination activities with 1# wrist weight. Propelled back to room. Amb to toilet with SBA. Toileted Indly with mild difficulty static standing to tie pants. Amb to EOB and sit to supine Indly. A: Increased difficulty with static standing, decreased left UE coor noted today.) Occupational Therapy Problem List: Detail (1. Decreased Ind with self care activities. 2. Decreased endurance needed for safe and Ind ADLs/IADLs. 3. Decreased functional mobility 4. Decreased UE function needed for safe and Ind ADLs/IADLs.) Occupational Therapy Goals: 1. Pt will be Ind with sponge bathing at sink. 2. Pt will be Ind with total body dressing 3. Pt will demonstrate increased endurance and Ind functional mobility needed for safe and Ind ADLs/IADLs 4. Pt will demonstrate WNL UE function needed for self cares. Prognosis: Good Occupational Therapy Plan: OT 2-4 days per week to address self cares, UE function, functional mobility and overall activity tolerance to allow safe and Ind return home.
[2016-10-14] MEDS: LATANOPROST 0.005% OPTH SOLUTION 2.5ML BOTTLE OPTH SCH (22:21)
[2016-10-15] MEDS: LEVOTHYROXINE SODIUM 100 MCG TABLET PO SCH (06:53)
[2016-10-15] MEDS: ASPIRIN 81 MG TABEC PO SCH (09:14)
[2016-10-15] MEDS: TAMSULOSIN HCL 0.4 MG CAP.ER.24H PO SCH (09:14)
[2016-10-15] MEDS: ATORVASTATIN 20 MG TABLET PO SCH (09:15)
[2016-10-15] MEDS: LISINOPRIL 20 MG TABLET PO SCH (09:15)
[2016-10-15] MEDS: TIMOLOL MALEATE 0.5% 5ML BTL OPTH SCH (09:15)
[2016-10-15] MEDS: AMLODIPINE BESYLATE 5MG TAB PO SCH (09:15)
[2016-10-15] MEDS: CLOPIDOGREL 75MG TABLET PO SCH (09:15)
--- NOTE | 2016-10-15 12:45 | Occupational Therapy Tx Note ---
Occupational Therapy Tx Note - Treatment Note Tolerated: Fair Total Time Spent With Patient: 30 (ther activity) Occupational Therapy Treatment Note: Detail (S: Pt reports feeling more tired today. O: Supine to sit Indly although with mod difficulty. Sit to stand and amb to toilet with 2 wheeled walker and SBA. Toileted with SBA. Pt amb 50 feet with 2 wheeled walker and SBA. Educated pt re: catheter care/emptying, pt able to demonstrate emptying catheter bag with mod verbal cues. Pt transferred back to EOB with SBA and sit to supine Indly. A: Pt able to empty catheter bag with verbal cues in sitting. More fatigued today.) Occupational Therapy Problem List: Detail (1. Decreased Ind with self care activities. 2. Decreased endurance needed for safe and Ind ADLs/IADLs. 3. Decreased functional mobility 4. Decreased UE function needed for safe and Ind ADLs/IADLs.) Occupational Therapy Goals: 1. Pt will be Ind with sponge bathing at sink. 2. Pt will be Ind with total body dressing 3. Pt will demonstrate increased endurance and Ind functional mobility needed for safe and Ind ADLs/IADLs 4. Pt will demonstrate WNL UE function needed for self cares. Prognosis: Good Occupational Therapy Plan: OT 2-4 days per week to address self cares, UE function, functional mobility and overall activity tolerance to allow safe and Ind return home.
--- NOTE | 2016-10-15 14:00 | Physical Therapy Tx Note ---
Physical Therapy Tx Note - Treatment Note Tolerated: Good Total Time Spent With Patient: 40 Physical Therapy Tx Note: Detail (The patient was in bed when PT arrived. "I had a good nap." The patient ambulated with wheeled walker 75 feet x2 with supervision for safety. The patient ambulated on 3 steps x2 with use of railing and cane with CG of 2 for safety. The patient requires verbal cues to step close to stairs and to push up from the surface with sit to and from stand transfer. The patient's balance using the Tinetti Assessment tool was 17 which is a one point improvement but still in the high risk for fall category. The patient did well this afternoon. The patient continues to have decreased balance reactions posteriorly.) Physical Therapy Problem List: Detail (1. Requires assist for bed mobility. 2. Left lower extremity weakness. 3. Requires assist w/transfers. 4. Difficulty walking. 5. Impaired activity tolerance. 6. Likely balance impairment.) Physical Therapy Goals: 1. Assess patient's balance using standardized balance test. 2. Pt will be safe and independent with bed mobility and transfers. 3. Pt will safely and independently ambulate 250 feet w/front wheeled walker. 4. Pt will tolerate 30 to 45 minutes of therapeutic activity without undue fatigue. 5. Pt will exhibit improved strength in initially weak lower extremity muscle groups, for greater stability with ambulation. Physical Therapy Plan: PT daily M-F for bed mobility, transfer, and gait/ balance training; instruction in LE strengthening exercises, facilitation of activity tolerance.
[2016-10-15] MEDS: LATANOPROST 0.005% OPTH SOLUTION 2.5ML BOTTLE OPTH SCH (22:15)
[2016-10-16] MEDS: LEVOTHYROXINE SODIUM 100 MCG TABLET PO SCH (07:00)
[2016-10-16] MEDS: TAMSULOSIN HCL 0.4 MG CAP.ER.24H PO SCH (10:12)
[2016-10-16] MEDS: ASPIRIN 81 MG TABEC PO SCH (10:12)
[2016-10-16] MEDS: AMLODIPINE BESYLATE 5MG TAB PO SCH (10:13)
[2016-10-16] MEDS: TIMOLOL MALEATE 0.5% 5ML BTL OPTH SCH (10:13)
[2016-10-16] MEDS: CLOPIDOGREL 75MG TABLET PO SCH (10:13)
[2016-10-16] MEDS: ATORVASTATIN 20 MG TABLET PO SCH (10:13)
[2016-10-16] MEDS: LISINOPRIL 20 MG TABLET PO SCH (10:13)
--- NOTE | 2016-10-16 10:57 | Occupational Therapy Tx Note ---
Occupational Therapy Tx Note - Treatment Note Tolerated: Good Total Time Spent With Patient: 30 (ADL) Occupational Therapy Treatment Note: Detail (S: Pt ready to get up. O: Supine to sit Indly. Sit to stand and amb to sink with 2 wheeled walker and SBA. Doffed t-shirt and PJ bottoms Indly. Completed sponge bathing in sitting with set up and SBA for sit to stand from chair. Donned t-shirt Indly, donned brief and PJ bottoms with min assist for catheter. Pt amb to chair with walker and SBA. A: Pt requires min assist for catheter management, Ind with sponge bathing.) Occupational Therapy Problem List: Detail (1. Decreased Ind with self care activities. 2. Decreased endurance needed for safe and Ind ADLs/IADLs. 3. Decreased functional mobility 4. Decreased UE function needed for safe and Ind ADLs/IADLs.) Occupational Therapy Goals: 1. Pt will be Ind with sponge bathing at sink. 2. Pt will be Ind with total body dressing 3. Pt will demonstrate increased endurance and Ind functional mobility needed for safe and Ind ADLs/IADLs 4. Pt will demonstrate WNL UE function needed for self cares. Prognosis: Good Occupational Therapy Plan: OT 2-4 days per week to address self cares, UE function, functional mobility and overall activity tolerance to allow safe and Ind return home.
--- NOTE | 2016-10-16 14:33 | Physical Therapy Tx Note ---
Physical Therapy Tx Note - Treatment Note Tolerated: Good Total Time Spent With Patient: 35 Physical Therapy Tx Note: Detail (The patient was up in chair when PT arrived. The patient ambulated with wheeled walker a distance of 100 feet x 1, 60 feet x 1 with Supervision for safety. The patient completed balance exercises: standing with varying bases of support, standing on cushion with CG, squats x 10 , walking sideways amd backwards. The patient was independent with sit to and from stand transfer and sit to supine transfer. No dragging of L LE was noted.) Physical Therapy Problem List: Detail (1. Requires assist for bed mobility. 2. Left lower extremity weakness. 3. Requires assist w/transfers. 4. Difficulty walking. 5. Impaired activity tolerance. 6. Likely balance impairment.) Physical Therapy Goals: 1. Assess patient's balance using standardized balance test. 2. Pt will be safe and independent with bed mobility and transfers. 3. Pt will safely and independently ambulate 250 feet w/front wheeled walker. 4. Pt will tolerate 30 to 45 minutes of therapeutic activity without undue fatigue. 5. Pt will exhibit improved strength in initially weak lower extremity muscle groups, for greater stability with ambulation. Physical Therapy Plan: PT daily M-F for bed mobility, transfer, and gait/ balance training; instruction in LE strengthening exercises, facilitation of activity tolerance.
[2016-10-16] MEDS: LATANOPROST 0.005% OPTH SOLUTION 2.5ML BOTTLE OPTH SCH (21:49)
[2016-10-17] MEDS: LEVOTHYROXINE SODIUM 100 MCG TABLET PO SCH (06:18)
[2016-10-17 07:36] LABS: BASO % 0.3 % (0-6); GRAN % 56.1 % (47-80); HEMATOCRIT 38.5 % (42.0-52.0); HEMOGLOBIN 12.7 gm/dl (14.0-18.0); LYMPH % 24.1 % (16-45); MEAN CELL VOLUME 93.7 fl (81-97); MEAN CORPUSCULAR HEMOGLOBIN 30.9 pg (27-33); MEAN PLATELET VOLUME 9.3 fl (7.4-10.4); MONO % 12.5 % (0-9); PLATELET COUNT 289 K/uL (130-400); RED BLOOD COUNT 4.11 M/uL (4.40-5.70); RED CELL DISTRIBUTION WIDTH 12.9 % (11.5-14.5); WHITE BLOOD COUNT W/O DIFF 7.4 K/uL (4.2-12.2)
[2016-10-17 07:45] LABS: ANION GAP 9.4 (7-16); BLOOD UREA NITROGEN 14 mg/dL (9-20); CARBON DIOXIDE 26.6 mmol/L (22-30); CREATININE 0.8 mg/dL (0.66-1.25); EST GLOMERULAR FILTRATION RATE > 60 ml/min; GLUCOSE,RANDOM 99 mg/dL (70-110)
[2016-10-17] MEDS: TAMSULOSIN HCL 0.4 MG CAP.ER.24H PO SCH (09:21)
[2016-10-17] MEDS: LISINOPRIL 20 MG TABLET PO SCH (09:21)
[2016-10-17] MEDS: ASPIRIN 81 MG TABEC PO SCH (09:22)
[2016-10-17] MEDS: CLOPIDOGREL 75MG TABLET PO SCH (09:22)
[2016-10-17] MEDS: AMLODIPINE BESYLATE 5MG TAB PO SCH (09:22)
[2016-10-17] MEDS: ATORVASTATIN 20 MG TABLET PO SCH (09:22)
[2016-10-17] MEDS: TIMOLOL MALEATE 0.5% 5ML BTL OPTH SCH (09:23)
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
--- NOTE | 2016-10-17 11:49 | Physical Therapy Tx Note ---
Physical Therapy Tx Note - Treatment Note Tolerated: Good Total Time Spent With Patient: 30 Physical Therapy Tx Note: Detail (Patient states feeling good today. Patient transferred sit to and from stand SBA x1. Patient ambulated 230 feet with wheeled walker SBA x1. Patient transferred sit to and from stand SBA x1. Patient ambulated 10 feet with wheeled walker SBA x1. Patient performed the following exercises: standing marching x10, standing hamstring curls x10, standing heel raises x10, standing toe raises x10, standing hip abduction x5, abdominal isometrics x10, and seated hip external rotation stretch x15 seconds bilateral. Patient tolerated treatment well. Patient displays decreased strength and endurance with standing marching, standing hamstring curls, and standing hip abduction. Patient reports no new complaints after treatment. Patient was left seated in chair with call light within reach.) Physical Therapy Problem List: Detail (1. Requires assist for bed mobility. 2. Left lower extremity weakness. 3. Requires assist w/transfers. 4. Difficulty walking. 5. Impaired activity tolerance. 6. Likely balance impairment.) Physical Therapy Goals: 1. Assess patient's balance using standardized balance test. 2. Pt will be safe and independent with bed mobility and transfers. 3. Pt will safely and independently ambulate 250 feet w/front wheeled walker. 4. Pt will tolerate 30 to 45 minutes of therapeutic activity without undue fatigue. 5. Pt will exhibit improved strength in initially weak lower extremity muscle groups, for greater stability with ambulation. Prognosis: Good Physical Therapy Plan: PT daily M-F for bed mobility, transfer, and gait/ balance training; instruction in LE strengthening exercises, facilitation of activity tolerance.
--- NOTE | 2016-10-17 14:55 | Physical Therapy Tx Note ---
Physical Therapy Tx Note - Treatment Note Tolerated: Good Total Time Spent With Patient: 30 Physical Therapy Tx Note: Detail (Patient reports no complaints this afternoon. Patient transferred sit to and from stand SBA x1. Patient ambulated 138 feet with wheeled walker SBA x1. Patient transferred sit to and from stand SBA x1. Patient performed the following exercises: marching with one hand hold x64 feet , sidestepping with two hand hold x32 feet each, and walking backward x64 feet with one hand hold. Patient transferred sit to and from stand SBA x1. Patient ambulated 11 feet with wheeled walker SBA x1. Patient transferred sit to supine independently. Patient tolerated treatment well. Patient required several seated rest breaks with exercises. Patient reports fatigued after treatment. Patient was left supine in bed with call light within reach.) Physical Therapy Problem List: Detail (1. Requires assist for bed mobility. 2. Left lower extremity weakness. 3. Requires assist w/transfers. 4. Difficulty walking. 5. Impaired activity tolerance. 6. Likely balance impairment.) Physical Therapy Goals: 1. Assess patient's balance using standardized balance test. 2. Pt will be safe and independent with bed mobility and transfers. 3. Pt will safely and independently ambulate 250 feet w/front wheeled walker. 4. Pt will tolerate 30 to 45 minutes of therapeutic activity without undue fatigue. 5. Pt will exhibit improved strength in initially weak lower extremity muscle groups, for greater stability with ambulation. Prognosis: Good Physical Therapy Plan: PT daily M-F for bed mobility, transfer, and gait/ balance training; instruction in LE strengthening exercises, facilitation of activity tolerance.
[2016-10-17] MEDS: LATANOPROST 0.005% OPTH SOLUTION 2.5ML BOTTLE OPTH SCH (21:25)
[2016-10-18] MEDS: LEVOTHYROXINE SODIUM 100 MCG TABLET PO SCH (06:29)
--- NOTE | 2016-10-18 09:23 | Rehab Discharge Summary ---
Patient Information - Patient Information Diagnosis: Generalized weakness, fall Ordered Treatment: OT Evaluate and Treat Surgery: No History: Detail (Pt had a three-day course of inpatient hospitalization from to 09/26/16 following sudden onset of weakness and inability to ambulate. He recovered somewhat and was discharged home. He reports falling in his bathroom upon arising this morning after emptying his catheter bag, crawling to his bed to pull himself up. 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 He has 4 steps to enter the home, with a single handrail. He has tub/shower combination , but typically bathes at the sink. He states he was ambulating with a quad cane prior to previous admission, and reports having mowed his lawn last Friday09/23/16. He also has a front wheeled walker. He typically does his own cooking , yard work, and home management; he goes to a [employer] to do laundry.) Social History: Detail (Pt lives alone. He has a son Abdifatah who lives in the and a granddaughter who are present today.) Precautions: Douglas, Fall Subjective Information - Subjective Information Per Patient Objective Data - Pain Pain Present: No - Mental Status Patient Orientation: Oriented x3 - Visual Perception Appears within normal limits for therapeutic activities - ROM Within normal limits (Pardeep UE AROM WNL) - Strength/Tone Within normal limits (Padreep UE MMT 5/5) - Coordination Appears within normal limits for therapeutic activities (Pardeep hand coordination equal and fingertip to thumb opposition WNL) - Bed Mobility Independent - Transfers Independent (Ind unless very fatigued, requires CG/min assist at times.) - Balance Balance Sitting: Good Balance Standing: Fair - Sensation Intact - Gait Detail (Amb household distances with 2 wheeled walker and SBA.) - ADL's/IADL's Detail (Pt able to complete sponge bath, dressing, shaving and toileting with SBA.) Therapy Assessment - Therapy Assessment Detail (Pt continues to require supervision with ADLs and mobility due to fatigue and inconsistent balance.) Problem List - Problem List Physical Therapy Problem List: Detail (1. Requires assist for bed mobility. 2. Left lower extremity weakness. 3. Requires assist w/transfers. 4. Difficulty walking. 5. Impaired activity tolerance. 6. Likely balance impairment.) Occupational Therapy Problem List: Detail (1. Decreased Ind with self care activities. 2. Decreased endurance needed for safe and Ind ADLs/IADLs. 3. Decreased functional mobility 4. Decreased UE function needed for safe and Ind ADLs/IADLs.) Goals - Goals Physical Therapy Goals: 1. Assess patient's balance using standardized balance test. 2. Pt will be safe and independent with bed mobility and transfers. 3. Pt will safely and independently ambulate 250 feet w/front wheeled walker. 4. Pt will tolerate 30 to 45 minutes of therapeutic activity without undue fatigue. 5. Pt will exhibit improved strength in initially weak lower extremity muscle groups, for greater stability with ambulation. Occupational Therapy Goals: Goals partially met: 1. Pt will be Ind with sponge bathing at sink. 2. Pt will be Ind with total body dressing Goals met : 3. Pt will demonstrate increased endurance and Ind functional mobility needed for safe and Ind ADLs/IADLs 4. Pt will demonstrate WNL UE function needed for self cares. Prognosis - Prognosis Good Plan - Plan Physical Therapy Plan: PT daily M-F for bed mobility, transfer, and gait/ balance training; instruction in LE strengthening exercises, facilitation of activity tolerance. Occupational Therapy Plan: Pt discharging home with 24 hour supervision and home OT/PT.
--- NOTE | 2016-10-18 09:44 | Rehab Discharge Summary ---
Patient Information - Patient Information Diagnosis: Generalized weakness, fall Ordered Treatment: PT Evaluate and Treat Surgery: No History: Detail (Pt had a three-day course of inpatient hospitalization from to 09/26/16 following sudden onset of weakness and inability to ambulate. He recovered somewhat and was discharged home. He reports falling in his bathroom upon arising this morning after emptying his catheter bag, crawling to his bed to pull himself up. 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 He has 4 steps to enter the home, with a single handrail. He has tub/shower combination , but typically bathes at the sink. He states he was ambulating with a quad cane prior to previous admission, and reports having mowed his lawn last Friday09/23/16. He also has a front wheeled walker. He typically does his own cooking , yard work, and home management; he goes to a [employer] to do laundry.) Social History: Detail (Pt lives alone. He has a son Abdifatah who lives in the and a granddaughter who are present today.) Precautions: [place], Fall Subjective Information - Subjective Information Per Patient (The patient has no complaints, other then fatigue with activity at times and L foot drag when ambulating. The patient is anxious to do yard work. The patient was cautioned not to do anything alone.) Objective Data - Mental Status Patient Orientation: Oriented x3 - Visual Perception Appears within normal limits for therapeutic activities - ROM Within normal limits - Strength/Tone Not within normal limits (The patient's LE strength is as follows: R LE is generally 4+ to 5/5, L hip musculature is 4/5 in hip abductors, adductors and extensors and 4-/5 in hip flexors, knee flexors 4/5, extensors 4+/5, ankle dorsiflexion 3+/5, plantar flexors 4+/5.) - Coordination Deficit (Decreased ONUR's with L hip marching.) - Bed Mobility Independent (The patient was independent with supine to and from sit transfer and scooting up in bed.) - Transfers Independent (The patient is independent with sit to and from stand from a higher surface, however when fatigued he requires at times minimal PA. The patient required supervision for safety with toilet transfer.) - Balance Balance Sitting: Good Balance Standing: Fair (The patient's balance using the Tinetti Balance Scale was 17/28 which is in the high risk for standing category. The patient exhibited decreased balance reactions posterior.) - Gait Detail (The patient ambulated with wheeled walker a distance of 250 feet plus with supervision for safety. The patient's gait pattern included L foot drag at times and decreased stride length on the L. The patient was able to correct gait pattern with verbal cues. The patient ambulated on 3 steps with one railing and one cane with CG of 1 and supervision of one for safety. The patient required occasional verbal cues to put whole L foot on step.) Therapy Assessment - Therapy Assessment Detail (The patient had increased independence with mobility and ambulation. The patient continues to be in the high risk for fall category. Home PT and OT is recommended to assess safety in the home environment and progress gait to ambulation with cane if able and assessment of acessibility of the patient's bathroom with a walker. Due to the patient's high risk of falling and occasional L foot drag with ambulation.) Patient Education - Patient Education Teaching Topic: Equipment Use, Exercise/Activity (The patient was instructed in a Home Exercise Program of LE strengthening exercises.) Response: Return Demonstration Teaching Method: Demonstration Teaching Recipient: Patient Barriers To Learning: Age Related Problem List - Problem List Physical Therapy Problem List: Detail (1. Requires assist for bed mobility. 2. Left lower extremity weakness. 3. Requires assist w/transfers. 4. Difficulty walking. 5. Impaired activity tolerance. 6. Likely balance impairment.) Occupational Therapy Problem List: Detail (1. Decreased Ind with self care activities. 2. Decreased endurance needed for safe and Ind ADLs/IADLs. 3. Decreased functional mobility 4. Decreased UE function needed for safe and Ind ADLs/IADLs.) Goals - Goals Physical Therapy Goals: GOALS MET: 1. Assess patient's balance using standardized balance test. 2. Pt will be safe and independent with bed mobility and transfers. 3. Pt will safely and independently ambulate 250 feet w /front wheeled walker. 4. Pt will tolerate 30 to 45 minutes of therapeutic activity without undue fatigue. GOALS PARTIALLY MET: 5. Pt will exhibit improved strength in initially weak lower extremity muscle groups, for greater stability with ambulation. Occupational Therapy Goals: Goals partially met: 1. Pt will be Ind with sponge bathing at sink. 2. Pt will be Ind with total body dressing Goals met : 3. Pt will demonstrate increased endurance and Ind functional mobility needed for safe and Ind ADLs/IADLs 4. Pt will demonstrate WNL UE function needed for self cares. Plan - Plan Physical Therapy Plan: The patient is discharged to home with 24 hour supervision and Home Health OT/PT. Occupational Therapy Plan: Pt discharging home with 24 hour supervision and home OT/PT.
[2016-10-18] MEDS: AMLODIPINE BESYLATE 5MG TAB PO SCH (11:06)
[2016-10-18] MEDS: LISINOPRIL 20 MG TABLET PO SCH (11:06)
[2016-10-18] MEDS: CLOPIDOGREL 75MG TABLET PO SCH (11:06)
[2016-10-18] MEDS: ASPIRIN 81 MG TABEC PO SCH (11:06)
[2016-10-18] MEDS: TAMSULOSIN HCL 0.4 MG CAP.ER.24H PO SCH (11:07)
[2016-10-18] MEDS: ATORVASTATIN 20 MG TABLET PO SCH (11:07)
[2016-10-18] MEDS: TIMOLOL MALEATE 0.5% 5ML BTL OPTH SCH (11:07)
== END 2016-10-18 11:30 | disposition home health service (06) | DRG 947 ==
LOC: MEDSURG 14:57 → UNDOADMIN 14:57
PROVIDERS: ADMIT Family Medicine; ATTEND Family Medicine
PROC: 0TJB8ZZ Inspection of Bladder, Via Natural or Artificial Opening Endoscopic (ICD-10-PCS; principal; 2016-10-08)
DX: R53.1 Weakness (principal); I63.9 Cerebral infarction, unspecified; N13.8 Other obstructive and reflux uropathy; W19.XXXA Unspecified fall, initial encounter; R41.89 Other symptoms and signs involving cognitive functions and awareness; R33.9 Retention of urine, unspecified; Z78.9 Other specified health status; N40.1 Benign prostatic hyperplasia with lower urinary tract symptoms; Z98.890 Other specified postprocedural states; I10 Essential (primary) hypertension; Z79.02 Long term (current) use of antithrombotics/antiplatelets
CPT/HCPCS: 76870; 80048; 80053; 81001; 85025; 85027; 97110; 97116; 97166; 97530; 97535; 99306; 99309; 99316

== ENCOUNTER 2017-02-04 11:52 | Inpatient (IN) | payer MEDICARE, BC ==
--- NOTE | 2017-02-04 12:02 | Emergency Department Record ---
History of Present Illness - General Chief complaint: Weakness Stated complaint: WEAKNESS Time Seen by Provider: 02/04/17 11:53 Source: Patient, EMS Mode of Arrival: EMS Limitations: No limitations - History of Present Illness Initial comments: 86 yo male presents with weakness and cough per EMS. The patient was brought to the hospital per EMS due to two days of increasing weakness at home where he lives alone. He has had some cough the last 2 days as well. He denies fever. He denies passing out. He denies fever. He had some mild headache yesterday but it is gone now. He denies vomiting or diarrhea but reports decreased PO intake. No abdominal pain. PCP is Caden. The patient normal does own straight cath at home. MD Complaint: Generalized weakness -: Days(s) Location: Generalized Severity: Moderate Consistency: Constant Improves with: None Worsens with: Other (cough) Associated Symptoms: Loss of appetite, Other (cough) - [place] Coma Scale Eye Response: (4) Open spontaneously Motor Response: (6) Obeys commands Verbal Response: (5) Oriented Sunday Total: 15 - Related Data Home Medications Medication Instructions Recorded Confirmed Last Taken Donepezil HCl [Donepezil HCl] 10 mg PO DAILY 02/04/17 02/04/17 Unknown Previous Rx's Medication Instructions Recorded Latanoprost 0.005% Opth Desire 1 drop OPTH QHS btl 09/26/16 [Xalatan] Tamsulosin HCl [Flomax] 0.4 mg PO DAILY #30 cap.er.24h 10/18/16 Allergies Allergy/AdvReac Type Severity Reaction Status Date / Time No Known Drug Allergies Allergy Verified 09/09/15 17:27 Review of Systems Constitutional: Reports: Malaise, Weakness. Denies: Chills, Fever, Night sweats Eyes: Denies: Eye discharge, Photophobia, Vision change ENT: Reports: Congestion. Denies: Throat pain Respiratory: Reports: Cough. Denies: Hemoptysis, Wheezes Cardiovascular: Denies: Chest pain, Edema, Palpitations, Syncope Endocrine: Reports: Fatigue Gastrointestinal: Reports: Nausea. Denies: Abdominal pain, Diarrhea, Vomiting Genitourinary: Denies: Dysuria, Frequency, Hematuria, Incontinence Musculoskeletal: Reports: Back pain. Denies: Arthralgia, Myalgia Skin: Denies: Bruising, Change in color, Rash Neurological: Reports: Abnormal gait (weakness), Headache, Weakness. Denies: Confusion, Numbness, Tingling, Vertigo Psychiatric: Denies: Anxiety Hematological/Lymphatic: Denies: Blood Clots, Easy bleeding, Easy bruising, Swollen glands Past Medical History - SOCIAL HISTORY Smoking Status: Never smoker - RESPIRATORY Hx Respiratory Disorders: No - CARDIOVASCULAR Hx Cardio Disorders: Yes Hx Abnormal EKG: Yes Hx Heart Attack: Yes Hx Hypertension: Yes Comment:: stents, bypass - NEURO Hx Neuro Disorders: No - GI Hx GI Disorders: No - Hx Genitourinary Disorders: Yes Hx Bladder Problem: Yes (retention, connelly in place) Comment:: retention, connelly in place - ENDOCRINE Hx Endocrine Disorders: No Hx Diabetes: No Hx Thyroid Disease: No - MUSCULOSKELETAL Hx Musculoskeletal Disorders: Yes Hx Arthritis: Yes - PSYCH Hx Psych Problems: No - HEMATOLOGY/ONCOLOGY Hx Hematology/Oncology Disorders: No Physical Exam - General General Appearance: Alert, Cooperative, No acute distress, Other (Oriented to name and name of the hospital) - Head Head exam: Atraumatic, Normocephalic, Normal inspection - Eye Eye exam: Normal appearance, PERRL. negative: Periorbital swelling - ENT ENT exam: Normal exam, Mucous membranes dry Ear exam: Normal external inspection Nasal Exam: Normal inspection Mouth exam: Normal external inspection Teeth exam: Other (No teeth) - Neck Neck exam: Normal inspection. negative: Tenderness - Respiratory Respiratory exam: Rhonchi (few scattered on the right otherwise non labored). negative: Normal lung sounds bilaterally, Accessory muscle use, Prolonged expiratory, Respiratory distress, Wheezes - Cardiovascular Cardiovascular Exam: Regular rate, Normal rhythm, Normal heart sounds - GI/Abdominal GI/Abdominal exam: Soft. negative: Distended, Tenderness - Rectal Rectal exam: Deferred - exam: Deferred - Extremities Extremities exam: Normal inspection, Full ROM, Normal capillary refill. negative: Pedal edema, Tenderness - Back Back exam: Reports: Normal inspection, Full ROM. Denies: CVA tenderness (L), Muscle spasm, Rash noted, Tenderness, Vertebral tenderness - Neurological Neurological exam: Alert - Psychiatric Psychiatric exam: Normal affect, Normal mood - Skin Skin exam: Dry, Intact, Normal color, Warm Course - Reevaluation(s) Reevaluation #1: 02/04/17 12:01 EMR reviewed from 09/2016 admission 02/04/17 13:01 No acute significant changes of the CBC or CMP 02/04/17 13:55 UA is N and LE negative but with few RBC and +3 Bacteria He will be given IV antibioitcs Reevaluation #2: EKG 13:52 NSR, rate 71, intervals normal, axis normal, ST normal. 02/04/17 13:56 Due to the UTI and weakness I recommend admission for IV antibiotics and PT evaluation to assess for home stability and safety due to fall radha I VERNA Montanez of the family medicine service She will admit 02/04/17 14:03 Medical Decision Making - Lab Data Result diagrams: 02/04/17 12:15 02/04/17 12:15 Disposition Disposition: Admit Clinical Impression: Weakness UTI (urinary tract infection) Qualifiers: Urinary tract infection type: site unspecified Hematuria presence: without hematuria Qualified Code(s): N39.0 - Urinary tract infection, site not specified Disposition: Still a Patient at [facility] Decision to Admit: Admit from ER Decision to Admit Date: 02/04/17 Decision to Admit Time: 14:04 Condition: (2) Stable Forms: Patient Portal Access Time of Disposition: 14:04 Quality - Quality Measures Quality Measures: N/A - Blood Pressure Screening Does Patient Have Any of the Following: No Blood Pressure Classification: Hypertensive Reading Systolic Measurement: 149 Diastolic Measurement: 72 Screening for High Blood Pressure: < Pre-Hypertensive BP, F/U Documented > [ [id number]] Pre-Hypertensive Follow-up Interventions: Referral to alternative/primary care provider.
[2017-02-04 12:30] LABS: HEMATOCRIT 37.5 % (42.0-52.0); HEMOGLOBIN 13.2 gm/dl (14.0-18.0); MEAN CELL VOLUME 90.6 fl (81-97); MEAN CORPUSCULAR HGB CONC 35.2 g/dl (32-36); MEAN PLATELET VOLUME 9.6 fl (7.4-10.4); PLATELET COUNT 197 K/uL (130-400); RED BLOOD COUNT 4.14 M/uL (4.40-5.70); RED CELL DISTRIBUTION WIDTH 13.3 % (11.5-14.5)
[2017-02-04 12:31] LABS: MEAN CORPUSCULAR HEMOGLOBIN 31.8 pg (27-33)
[2017-02-04 12:44] LABS: ALB/GLOB RATIO 1.3 (1.1-1.8); ALBUMIN 4.3 gm/dL (3.5-5.0); ALKALINE PHOSPHATASE 106 U/L (38-126); ALT/SGPT 37 U/L (21-72); AST/SGOT 22 U/L (17-59); BILIRUBIN,TOTAL 1.32 mg/dL (0.2-1.3); BLOOD UREA NITROGEN 15 mg/dL (9-20); CREATININE 0.9 mg/dL (0.66-1.25); EST GLOMERULAR FILTRATION RATE > 60 ml/min; GLUCOSE,RANDOM 129 mg/dL (70-110); TOTAL PROTEIN 7.7 gm/dL (6.3-8.2)
[2017-02-04 13:02] LABS: TROPONIN I < 0.012 ng/mL (0.00-0.034)
[2017-02-04 13:13] LABS: THYROID STIMULATING HORMONE 1.81 uIU/ml (0.465-4.68)
[2017-02-04 13:19] LABS: URINE APPEARANCE CLEAR; URINE BILIRUBIN NEGATIVE (NEGATIVE); URINE BLOOD TRACE-I (NEGATIVE); URINE COLOR YELLOW; URINE GLUCOSE (UA) NEGATIVE (NEGATIVE); URINE KETONE NEGATIVE (NEGATIVE); URINE LEUKOCYTE ESTERASE NEGATIVE (NEGATIVE); URINE NITRITE NEGATIVE (NEGATIVE); URINE PROTEIN NEGATIVE (NEGATIVE); URINE UROBILINOGEN 0.2 E.U./dL (0.20 - 1.00)
[2017-02-04 13:37] LABS: URINE BACTERIA 3+; URINE EPITHELIAL CELLS 0 - 2 (FEW); URINE WBC 0 - 2 (0-2/hpf)
[2017-02-04] MEDS ORDERED: CEFTRIAXONE SODIUM 1 GM in 0.9 % SODIUM CHLORIDE 100ML 100 ML IVPB ONE (13:56)
--- NOTE | 2017-02-04 14:50 | RADIOLOGY REPORT ---
EXAM: CHEST, TWO VIEWS HISTORY: COUGH AND WEAKNESS FOR TWO DAYS. TECHNIQUE: AP sitting and lateral views of the chest were obtained. Comparison: Two view chest 09/23/16. FINDINGS: Stable heart size, within normal limits. Postop sternotomy as before. No definite acute infiltrate is seen and no pleural effusion or pneumothorax evident. Mild elevation of the right hemidiaphragm particularly anteriorly. IMPRESSION: 1. POSTOP STERNOTOMY. 2. MILD ELEVATION OF THE RIGHT HEMIDIAPHRAGM. 3. PROMINENT SPURRING IN THE SPINE. JOB NUMBER: [id number] [facility]
--- NOTE | 2017-02-04 14:57 | CT SCAN REPORT ---
EXAM: CT OF THE HEAD WITHOUT CONTRAST HISTORY: CONFUSION, COUGH, WEAKNESS. TECHNIQUE: Axial CT scan of the head was performed without IV contrast. Comparison: Head CT 09/24/16. FINDINGS: No definite acute intracranial hemorrhage identified. No focal mass effect or midline shift apparent. Moderate generalized atrophy again seen and chronic appearing deep white matter changes again evident, nonspecific, but likely representing some chronic small vessel deep white matter ischemic disease. Small low attenuation focus in the deep white matter of the right parietal lobe adjacent to the body of the right lateral ventricle was not seen previously, but appears chronic as visualized today and is likely a small chronic lacunar infarct. No definite acute infarct or intracranial mass lesion is seen. Moderate membrane thickening in the left maxillary antrum and in the ethmoids bilaterally. IMPRESSION: 1. 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 2. NO DEFINITE ACUTE INTRACRANIAL HEMORRHAGE OR FOCAL MASS EFFECT IDENTIFIED. JOB NUMBER: [id number] [facility]
[2017-02-04] MEDS ORDERED: 0.9 % SODIUM CHLORIDE 1000ML 1,000 ML IV PRN (16:33)
[2017-02-04] MEDS ORDERED: ACETAMINOPHEN 500 MG TABLET PO PRN (16:33)
[2017-02-04] MEDS ORDERED: CEFTRIAXONE SODIUM 1 GM in 0.9 % SODIUM CHLORIDE 100ML 100 ML IVPB SCH ×5 (16:33→18:00)
[2017-02-04] MEDS ORDERED: LIDOCAINE 2% JELLY 30 ML TUBE TOP ONE ×2 (17:05)
[2017-02-04] MEDS ORDERED: LIDOCAINE UROJECT 10 ML APPL MM ONE (17:18)
[2017-02-04] MEDS: LATANOPROST 0.005% OPTH SOLUTION 2.5ML BOTTLE OPTH SCH (21:57)
[2017-02-05] MEDS ORDERED: Non-Formulary MISC (Atorvastatin Calcium [Lipitor] 40 MG) PO SCH (10:00)
[2017-02-05] MEDS ORDERED: LEVOTHYROXINE SODIUM 100 MCG TABLET PO SCH (10:00)
[2017-02-05] MEDS ORDERED: Non-Formulary MISC (Donepezil Hcl [Donepezil Hcl] 10 MG) PO SCH (10:00)
[2017-02-05] MEDS: LISINOPRIL 20 MG TABLET PO SCH (10:09)
[2017-02-05] MEDS: TAMSULOSIN HCL 0.4 MG CAP.ER.24H PO SCH (10:09)
[2017-02-05] MEDS: AMLODIPINE BESYLATE 5MG TAB PO SCH (10:09)
[2017-02-05] MEDS: ATORVASTATIN 20 MG TABLET PO SCH (10:09)
[2017-02-05] MEDS: CLOPIDOGREL 75MG TABLET PO SCH (10:09)
[2017-02-05] MEDS: ASPIRIN 81 MG TABEC PO SCH (10:09)
[2017-02-05] MEDS: DONEPEZIL HCL 5 MG TABLET PO SCH (10:09)
[2017-02-05] MEDS: 0.9 % SODIUM CHLORIDE 1000ML 1,000 ML IV PRN (11:30)
--- NOTE | 2017-02-05 11:42 | History & Physical ---
History of Present Illness - Date of Service Date of Service for History & Physical: 02/05/17 - History of Present Illness Admitting Diagnosis: weakness, uti, falls History of Present Illness: 86 yo male admitted for weakness and UTI. PMHx of HTN, hypothyroidism, high cholesterol, NV 30 years ago (s/p stent), BPH s/p stenting (straight caths, follows with Dr. Mobley), and CVA w/o deficits about 10 years ago. History was obtained from patient who is A&Ox3 & grand daughter. Patient presented to the ED by EMS due to generalized weakness. Onset began two days ago. Patient's grand daughter states she visited patient yesterday and he was having a hard time putting on his shirt. She states that he lives alone and is typically very independent. Patient c/o cough for the past 2 days in addition to weakness, otherwise denies fever, chills, n/v, abd pain, change in bowel habits, cp, katey, headache or dizziness. He reports a ONEAL two days ago, though this resolved. Upon presentation, T 99.1, HR 69, BP 149/72, Ox 94% RA. CBC/CMP relatively unremarkable. BNP 576. Normal TSH. UA: neg nitrite/leuks, trace blood. 3+ bacteria. Urine culture pending. Head CT: atrophy. small chronic lacunar infarct deep white matter of R parietal lobe, no definite acute intracranial hemorrhage or focal mass effect. EKG: NSR, rate 71, intervals normal, axis normal, ST normal. Patient was given 1 gm of IV Rocephin and started on 100 mls /hr of NS. Admitted for further medical management. 02/05/17- Patient lying in bed comfortably with his grand daughter at bedside. Patient states he feels well and denies any pain. Tolerating breakfast though states his appetite is not the best right now. He denies fever, chills, n/v/ abd pain/change in bowel habits, headache, lightheadedness, weakness, confusion , cp, sob, or cough. Patient was admitted 09/16 for weakness. Patient had a potential TIA at that time. During that admission, carotid dopplers were obtained which demonstrated <50% stenosis. In addition, cardiac ECHO w/ EF of 66%. Following his hospital admissino, patient was admitted to our PRITI program and then d/c'd home where he lives independently. Patient has been ambulating with a walker. PCP: Dr. Negrete. Travel Screening - Travel/Exposure Within Last 30 Days Have you traveled within the last 30 days?: No - Travel/Exposure Within Last Year Have you traveled outside the [place] in the last year?: No - Additonal Travel Details Have you been exposed to anyone with a communicable illness?: No - Travel Symptoms Symptom Screening: None Review of Systems Constitutional: Reports: Malaise, Weakness. Denies: Chills, Fever, Night sweats Eyes: Denies: Eye discharge, Photophobia, Vision change ENT: Reports: Congestion. Denies: Throat pain Respiratory: Denies: Cough, Hemoptysis, Wheezes Cardiovascular: Denies: Chest pain, Edema, Palpitations, Syncope Endocrine: Reports: Fatigue Gastrointestinal: Denies: Abdominal pain, Diarrhea, Nausea, Vomiting Genitourinary: Denies: Dysuria, Frequency, Hematuria, Incontinence Musculoskeletal: Reports: Back pain (chronic). Denies: Arthralgia, Myalgia Skin: Denies: Bruising, Change in color, Rash Neurological: Reports: Abnormal gait (weakness), Weakness. 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 - ENDOCRINE Hx Endocrine Disorders: No Hx Diabetes: No Hx Thyroid Disease: No - MUSCULOSKELETAL Hx Musculoskeletal Disorders: Yes Hx Arthritis: Yes - PSYCH Hx Psych Problems: No - HEMATOLOGY/ONCOLOGY Hx Hematology/Oncology Disorders: No Family Medical History Any Significant Family History?: No H&P Meds/Allergies - Allergies Allergies: Allergies Allergy/AdvReac Type Severity Reaction Status Date / Time No Known Drug Allergies Allergy Verified 09/09/15 17:27 - Home Medications Home Medications Medication Instructions Recorded Confirmed Last Taken Donepezil HCl [Donepezil HCl] 10 mg PO DAILY 02/04/17 02/04/17 Unknown Previous Rx's Medication Instructions Recorded Latanoprost 0.005% Opth Desire 1 drop OPTH QHS btl 09/26/16 [Xalatan] Tamsulosin HCl [Flomax] 0.4 mg PO DAILY #30 cap.er.24h 10/18/16 - Active Medications Active Medications: Current Medications Acetaminophen (Tylenol 500mg Tab) 500 mg PO Q6H PRN PRN Reason: PAIN/TEMP Amlodipine Besylate (Norvasc) 5 mg PO DAILY REPLACED BY [facility] Last Admin: 02/05/17 10:09 Dose: 5 mg Aspirin (Ecotrin (Ec)) 81 mg PO DAILY REPLACED BY [facility] Last Admin: 02/05/17 10:09 Dose: 81 mg Atorvastatin Calcium (Lipitor) 40 mg PO DAILY REPLACED BY [facility] Last Admin: 02/05/17 10:09 Dose: 40 mg Clopidogrel Bisulfate (Plavix) 75 mg PO DAILY REPLACED BY [facility] Last Admin: 02/05/17 10:09 Dose: 75 mg Donepezil HCl (Aricept) 10 mg PO DAILY REPLACED BY [facility] Last Admin: 02/05/17 10:09 Dose: 10 mg Sodium Chloride () 1,000 mls @ 100 mls/hr IV .Q10H PRN PRN Reason: LARGE VOLUME IV Last Admin: 02/05/17 01:27 Dose: 100 mls/hr Ceftriaxone Sodium 1 gm/ (Sodium Chloride) 100 mls @ 100 mls/hr IVPB Q24H REPLACED BY [facility] Stop: 02/10/17 18:01 Latanoprost (Xalatan) 1 drop OPTH QHS REPLACED BY [facility] Last Admin: 02/04/17 21:57 Dose: 1 drop Levothyroxine Sodium (Synthroid) 100 mcg PO DAILYTHY REPLACED BY [facility] Lisinopril (Zestril) 20 mg PO DAILY REPLACED BY [facility] Last Admin: 02/05/17 10:09 Dose: 20 mg Tamsulosin HCl (Flomax) 0.4 mg PO DAILY REPLACED BY [facility] Last Admin: 02/05/17 10:09 Dose: 0.4 mg Physical Exam - Vital Signs Vital Signs: Vital Signs - Last 24 Hrs Temp Pulse Pulse Pulse Resp BP BP 02/05/17 05:50 99.9 F H 66 16 137/65 02/04/17 21:00 76 16 02/04/17 16:33 99.1 F 82 18 130/64 02/04/17 16:30 74 82 18 02/04/17 16:29 72 28 H 150/67 Pulse Ox 02/05/17 05:50 92 L 02/04/17 21:00 02/04/17 16:33 02/04/17 16:30 02/04/17 16:29 94 L - General General Appearance: Alert, Cooperative, No acute distress, Other (oriented to person, place and date) Limitations: No limitations - Head Head exam: Atraumatic, Normocephalic, Normal inspection - Eye Eye exam: Normal appearance, PERRL. negative: Periorbital swelling - ENT ENT exam: Normal exam, Mucous membranes dry Ear exam: Normal external inspection Nasal Exam: Normal inspection Mouth exam: Normal external inspection Teeth exam: Other (No teeth) - Neck Neck exam: Normal inspection. negative: Tenderness - Respiratory Respiratory exam: Rhonchi (few scattered on the right otherwise non labored). negative: Normal lung sounds bilaterally, Accessory muscle use, Prolonged expiratory, Respiratory distress, Wheezes - Cardiovascular Cardiovascular Exam: Regular rate, Normal rhythm, Normal heart sounds - GI/Abdominal GI/Abdominal exam: Soft. negative: Distended, Tenderness - Rectal Rectal exam: Deferred - exam: Deferred - Extremities Extremities exam: Normal inspection, Full ROM, Normal capillary refill. negative: Pedal edema, Tenderness - Back Back exam: Reports: Normal inspection, Full ROM. Denies: CVA tenderness (L), Muscle spasm, Rash noted, Tenderness, Vertebral tenderness - Neurological Neurological exam: Alert - Psychiatric Psychiatric exam: Normal affect, Normal mood - Skin Skin exam: Dry, Intact, Normal color, Warm Results - Labs Result Diagrams: 02/04/17 12:15 02/04/17 12:15 VTE H&P Assessment - Risk for VTE Risk for VTE: Yes Risk Level: Low Risk Assessment Date: 02/05/17 Risk Assessment Time: 11:00 VTE Orders Placed or Will Be Placed: No VTE Reason for No Prophylaxis: Not Indicated Plan - Inpatient Certification Inpatient Certification: Admit to inpatient care: Based on my medical assessment, after consideration of patient's risk factors (age, co-morbidities and patient presenting symptoms and acuity), I expect that this patient will remain in the hospital greater than or equal to two midnights and that the services needed warrant inpatient care because: Patient Risk Factors: [weakness, UTI] Estimated length of stay: [1-2 nights] The patient may reasonably be expected to be discharged or transferred to a hospital within 96 hours after admission to [facility]. Services needed: [PT/OT eval, IV antibiotic, IVFs] Post hospital care (if known): [home, rehab services] I certify that my determination is in accordance with my understanding of Medicare requirements for reasonable and necessary inpatient services. 02/05/17 12:07 - Detailed Diagnosis and Plan (1) UTI (urinary tract infection) Current Visit: Yes Status: Acute Qualifiers: Urinary tract infection type: site unspecified Hematuria presence: without hematuria Qualified Code(s): N39.0 - Urinary tract infection, site not specified Base Code: N39.0 - URINARY TRACT INFECTION, SITE NOT SPECIFIED Comment: 02/05/17 - UA: negative leuks, nitrites, trace blood. 3+ bacteria. Patient w/ h/o BPH s /p stenting. He straight caths at home. Currently following with Dr. Knapp. - Urine culture pending - continue 1 gm of IV Rocephin Q24H - will transition to PO antibiotics following tonights Rocephin dose - tylenol as needed for fever - continue gentle IV hydration (2) Weakness Current Visit: Yes Status: Acute Base Code: R53.1 - WEAKNESS Comment: - infection vs. dehydration vs. other? - Head CT: NAP - Continue 1 gm IV Rocephin Q24 for UTI - Will transition to PO antibiotics following his next dose at 1800 - IVFs- will decrease rate to 75 mls/hr - normal neuro examination - PT/OT evaluation (3) Cognitive impairment Current Visit: No Status: Acute Base Code: R41.89 - OTH SYMPTOMS AND SIGNS W COGNITIVE FUNCTIONS AND AWARENESS Comment: 02/05/17- vascular dementia vs alzheimers vs other etiology. MOCA from previous hospitalization demonstrated mild-moerate cognitive impairment with concern of executive functional status. - patient at baseline per family (4) DVT prophylaxis Current Visit: No Status: Acute Base Code: [id number] - Comment: 02/05/17: low -moderate risk noting age. patient ambulating well. Daily ASA. -PT/OT evaluation - continue to ambulate with walker (5) DNR (do not resuscitate) Current Visit: Yes Status: Acute Base Code: Z66 - DO NOT RESUSCITATE Comment: 02/05/17- pt is DNR
[2017-02-05] MEDS ORDERED: AL HYDROX/MAG HYDROX 30ML UD PO PRN (12:37)
--- NOTE | 2017-02-05 14:57 | Rehab Evaluation ---
Patient Information - Patient Information Diagnosis: Weakness, UTI Ordered Treatment: PT Evaluate and Treat Status: Initial Evaluation Surgery: No History: Detail (Pt was brought to ED 02/04/17 by EMS, after being called by jackie Winn due to new onset of weakness. Pt states he has been having some respiratory congestion recently and some difficulty clearing with coughing. He denies falls. 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 Jackie Winn stays w/him from 8-4 daily, but he is otherwise alone. He was ambulating w/front-wheeled walker or single tip cane within home, required CGA/SBA to go up/down outside steps. He was independently getting dressed and cleaning up, did some light meal preparation, mostly sits in chair watching TV.) Social History: Detail (Has daily help/supervision by jackie Winn 8-4 daily, but is otherwise alone. He had home physical therapy after last discharge from hospital, but that has been longer than one month ago.) Precautions: [place], Fall - Time With Patient Total Time Spent With Patient (Min): 40 Treatment Procedures: Detail (PT Evaluation) Subjective Information - Subjective Information Per Patient (Pt is in bed, awake, alert, cooperative for therapy. He states he is having intermittent congestion and difficulty clearing w/coughing. He reports mild low back pain. He denies any falls in the past month.) Objective Data - Pain Pain Present: Yes Pain Intensity: 2 (Low back) Pain Scale Used: Numeric (1 - 10) - Mental Status Patient Orientation: Oriented x3 - Visual Perception Appears within normal limits for therapeutic activities (AR) - ROM Within normal limits (AROM in UE's and LE's is within functional limits for mobility and self care activities.) - Strength/Tone Not within normal limits (3+/5 strength in L hip flexion and extension, otherwise 4/5 in hips, knees, and ankles.) - Coordination Appears within normal limits for therapeutic activities - Bed Mobility Independent (Used bedrail to help roll and scoot, w/HOB elevated. Difficulty w/ bed mobility, but able to do independently. Required max assist of 2 to scoot up in bed after treatment.) - Transfers Needs Assist (CGA for sit/stand transfers, VCs to reach for seat surface when going to sit.) - Balance Balance Sitting: Good Balance Standing: Fair (Required walker for standing, did not feel confident standing w/o UE support. No LOB standing w/walker.) - Sensation Intact - Gait Detail (Ambulated from bedside out to hallway/bedroom door w/front-wheeled walker about 25 feet, w/assist for IV pole and CGA/SBA.) Therapy Assessment - Therapy Assessment Detail (Pt exhibits impaired activity tolerance, mild L LE weakness, and difficulty w/bed mobility. He was mildly short of breath after ambulation and fatigued after evaluation and activity.) Patient Education - Patient Education Teaching Topic: Community Resources Response: Verbalize Understanding Teaching Method: Discussion Teaching Recipient: Patient, Family Barriers To Learning: None Problem List - Problem List Physical Therapy Problem List: Detail (1. Requires assist for bed mobility. 2. Proximal L LE weakness. 3. Impaired activity tolerance.) Goals - Goals Physical Therapy Goals: 1. Pt will be independent w/bed mobility. 2. Pt will safely and independently ambulate over household distances w/front-wheeled walker. 3. Pt will be independent w/basic HEP. Prognosis - Prognosis Good Plan - Plan Physical Therapy Plan: Pt will be seen 1-2x/day M- while hospitalized to facilitate bed mobility, overall strength and activity tolerance. He will likely benefit from home physical therapy upon discharge.
[2017-02-05] MEDS ORDERED: CEFTRIAXONE SODIUM 1 GM in 0.9 % SODIUM CHLORIDE 100ML 100 ML IVPB SCH (18:00)
[2017-02-05] MEDS: LATANOPROST 0.005% OPTH SOLUTION 2.5ML BOTTLE OPTH SCH (22:03)
[2017-02-06] MEDS: 0.9 % SODIUM CHLORIDE 1000ML 1,000 ML IV PRN (04:28)
[2017-02-06] MEDS ORDERED: LEVOTHYROXINE SODIUM 100 MCG TABLET PO SCH (07:00)
[2017-02-06] MEDS ORDERED: ALBUTEROL SULFATE (0.083%) 2.5 MG/3 ML NEB INH ONE (09:57)
[2017-02-06] MEDS ORDERED: POLYETHYLENE GLY 17 GM PACKET PO SCH (10:00)
[2017-02-06] MEDS: ATORVASTATIN 20 MG TABLET PO SCH (10:56)
[2017-02-06] MEDS: DONEPEZIL HCL 5 MG TABLET PO SCH (10:56)
[2017-02-06] MEDS: CLOPIDOGREL 75MG TABLET PO SCH (10:57)
[2017-02-06] MEDS: TAMSULOSIN HCL 0.4 MG CAP.ER.24H PO SCH (10:57)
[2017-02-06] MEDS: LISINOPRIL 20 MG TABLET PO SCH (10:57)
[2017-02-06] MEDS: ASPIRIN 81 MG TABEC PO SCH (10:57)
[2017-02-06] MEDS: AMLODIPINE BESYLATE 5MG TAB PO SCH (10:57)
--- NOTE | 2017-02-06 12:27 | Discharge Summary ---
Providers Discharge Summary Date: 02/06/17 Date of admission: 02/04/17 15:49 Expected Date of Discharge: 02/06/17 Attending physician: MACHO LANGSTON Primary care physician: MACHO LANGSTON Physical Exam - Vital Signs Vital Signs: Vital Signs - Last 24 Hrs Temp Pulse Pulse Pulse Resp BP Pulse Ox 02/06/17 10:13 70 14 98 02/06/17 09:00 20 02/06/17 07:45 99.7 F H 71 18 146/69 92 L 02/05/17 21:00 99.2 F 80 74 16 144/64 96 - General General Appearance: Alert, Cooperative, No acute distress, Other (oriented to person, place and date) Limitations: No limitations - Head Head exam: Atraumatic, Normocephalic, Normal inspection - Eye Eye exam: Normal appearance, PERRL. negative: Periorbital swelling - ENT ENT exam: Normal exam, Mucous membranes dry Ear exam: Normal external inspection Nasal Exam: Normal inspection Mouth exam: Normal external inspection Teeth exam: Other (No teeth) - Neck Neck exam: Normal inspection. negative: Tenderness - Respiratory Respiratory exam: Rhonchi (few scattered on the right otherwise non labored). negative: Normal lung sounds bilaterally, Accessory muscle use, Prolonged expiratory, Respiratory distress, Wheezes - Cardiovascular Cardiovascular Exam: Regular rate, Normal rhythm, Normal heart sounds - GI/Abdominal GI/Abdominal exam: Soft. negative: Distended, Tenderness - Rectal Rectal exam: Deferred - exam: Deferred - Extremities Extremities exam: Normal inspection, Full ROM, Normal capillary refill. negative: Pedal edema, Tenderness - Back Back exam: Reports: Normal inspection, Full ROM. Denies: CVA tenderness (L), Muscle spasm, Rash noted, Tenderness, Vertebral tenderness - Neurological Neurological exam: Alert - Psychiatric Psychiatric exam: Normal affect, Normal mood - Skin Skin exam: Dry, Intact, Normal color, Warm Hospitalization - Hospitalization Admission Diagnosis: weakness, uti, falls - Problem List/Discharge Diagnosis (1) UTI (urinary tract infection) Status: Acute Discharge Diagnosis: Urinary tract infection type: site unspecified Hematuria presence: without hematuria Qualified Code(s): N39.0 - Urinary tract infection, site not specified Base Code: N39.0 - URINARY TRACT INFECTION, SITE NOT SPECIFIED Comment: 02/06/17 - UA: negative leuks, nitrites, trace blood. 3+ bacteria. Patient w/ h/o BPH s/ p stenting. He straight caths at home. Currently following with Dr. Knapp. - Urine culture pending - Cipro 500 mg PO BID x 7 days - tylenol as needed for fever - encouraged increase PO fluids as outpatient - follow up with Dr. Negrete within the next 4-6 days. Patient and family agree to call and schedule a fup visit first thing tomorrow as we were not able to get through to Dr. Negrete's office. (2) Weakness Status: Acute Base Code: R53.1 - WEAKNESS Comment: 02/06/17- infection vs. dehydration vs. other? - Head CT: NAP - urine culture is pending - Cipro 500 PO BID x 7 days - encouraged increase fluids at home to prevent dehydration. - home health services- PT/OT, nursing (3) Cognitive impairment Status: Acute Base Code: R41.89 - OTH SYMPTOMS AND SIGNS W COGNITIVE FUNCTIONS AND AWARENESS Comment: 02/06/17- vascular dementia vs alzheimers vs other etiology. MOCA from previous hospitalization demonstrated mild-moerate cognitive impairment with concern of executive functional status. - patient at baseline per family - A&Ox3 during hospitalization - will continue to treat UTI as outpatient (4) DNR (do not resuscitate) Status: Acute Base Code: Z66 - DO NOT RESUSCITATE Comment: 02/06/17- pt remained DNR during his stay. - Hospitalization Course Disposition: Home Health Service Hospital Course: 86 yo male admitted for weakness and UTI. PMHx of HTN, hypothyroidism, high cholesterol, [place] 30 years ago (s/p stent), BPH s/p stenting (straight caths, follows with Dr. Mobley), and CVA w/o deficits about 10 years ago. History was obtained from patient who is A&Ox3 & grand daughter. Patient presented to the ED by EMS due to generalized weakness. Onset began two days ago. Patient's grand daughter states she visited patient yesterday and he was having a hard time putting on his shirt. She states that he lives alone and is typically very independent. Patient c/o cough for the past 2 days in addition to weakness, otherwise denies fever, chills, n/v, abd pain, change in bowel habits, cp, katey, headache or dizziness. He reports a ONEAL two days ago, though this resolved. Upon presentation, T 99.1, HR 69, BP 149/72, Ox 94% RA. CBC/CMP relatively unremarkable. BNP 576. Normal TSH. UA: neg nitrite/leuks, trace blood. 3+ bacteria. Urine culture pending. Head CT: atrophy. small chronic lacunar infarct deep white matter of R parietal lobe, no definite acute intracranial hemorrhage or focal mass effect. EKG: NSR, rate 71, intervals normal, axis normal, ST normal. Patient was given 1 gm of IV Rocephin and started on 100 mls /hr of NS. Admitted for further medical management. 02/05/17- Patient lying in bed comfortably with his grand daughter at bedside. Patient states he feels well and denies any pain. Tolerating breakfast though states his appetite is not the best right now. He denies fever, chills, n/v/ abd pain/change in bowel habits, headache, lightheadedness, weakness, confusion , cp, sob, or cough. Patient was admitted 09/16 for weakness. Patient had a potential TIA at that time. During that admission, carotid dopplers were obtained which demonstrated <50% stenosis. In addition, cardiac ECHO w/ EF of 66%. Following his hospital admissino, patient was admitted to our PRITI program and then d/c'd home where he lives independently. Patient has been ambulating with a walker. PCP: Dr. Negrete. 02/06/17- pt doing well today. his cough/wheezing has improved following one albuterol treatment. denies any sob/katey. participated in therapy and was able to ambulate further in the room. normal urine output per patient. denies fever /chills. tolerating po intake. Condition at Discharge: (2) Stable Discharge Medications - Discharge Medications Prescriptions: Ciprofloxacin HCl [Cipro] 500 mg PO Q12HR #14 tablet Albuterol Sulfate [Proair Hfa] 1 - 2 puff IH .EVERY 4-6 HOURS PRN #1 inhaler PRN Reason: Difficulty In Breathing Home Medications: Ambulatory Orders Amlodipine Besylate [Norvasc] 5 mg PO DAILY 09/07/15 [Last Taken 09/27/16] Clopidogrel Bisulfate [Plavix] 75 mg PO DAILY 09/07/15 [Last Taken 09/27/16] Levothyroxine Sodium [Synthroid] 100 mcg PO DAILY 09/07/15 [Last Taken 09/27/16] Lisinopril [Zestril] 20 mg PO DAILY 09/07/15 [Last Taken 09/27/16] Aspirin [Aspirin EC] 81 mg PO DAILY 09/23/16 [Last Taken 09/27/16] Atorvastatin Calcium [Lipitor] 40 mg PO DAILY 09/23/16 [Last Taken 09/27/16] Latanoprost 0.005% Opth Desire [Xalatan] 1 drop OPTH QHS btl 09/26/16 [Last Taken 09/26/16] Tamsulosin HCl [Flomax] 0.4 mg PO DAILY #30 cap.er.24h 10/18/16 [Last Taken Unknown] Donepezil HCl 10 mg PO DAILY 02/04/17 [Last Taken Unknown] Albuterol Sulfate [Proair Hfa] 1 - 2 puff IH .EVERY 4-6 HOURS PRN #1 inhaler 12/16 [Last Taken Unknown] Ciprofloxacin HCl [Cipro] 500 mg PO Q12HR #14 tablet 02/06/17 [Last Taken Unknown] Discharge Plan - Discharge Instructions Activity at Discharge: As Per Physical Therapy, Increase Activity as Tolerated Diet at Discharge: Regular Diet Instructions: Catheter-associated Urinary Tract Infection (DC), Urinary Traction Infection in Older Adults (DC) Additional Instructions: He will need to complete antibiotic for urinary infection (Cipro 500 mg twice daily x 7 days) monitor for any fever, chills, change in behavior, etc continue home medications I added albuterol inhaler to his med list as this helped improve his cough and wheezing this morning. Home health services as outpatient- PT/OT/nursing Follow up with Dr. Negrete: Please contact her office to schedule a follow up visit first thing tomorrow morning. Return re any new or worsening symptoms such as those listed above.
--- NOTE | 2017-02-06 14:50 | Physical Therapy Tx Note ---
Physical Therapy Tx Note - Treatment Note Tolerated: Good Total Time Spent With Patient: 20 Physical Therapy Tx Note: Detail (Pt was up in bathroom w/nrsg web assistant, getting cleaned up, upon arrival. Pt ambulated from bathroom out to hallway about 10 feet and return to bedside (about 45 feet total) w/CGA w/front-wheeled walker, short shuffling strides. Required assist for IV pole. Required min assist for positioning in bed and scooting up in bed, using bedrails, and cuing for pushing with LEs. CGA for getting into bed, for LEs. Complained of being chilled, placed warm blanket on patient and remainder of bedding, positioned bed for comfort. Pt requested that I call a family member (Stefany); number went to voicemail, pt declined to leave message. Call light placed within reach , bedside table within reach. Decreased shortness of breath noted.) Physical Therapy Problem List: Detail (1. Requires assist for bed mobility. 2. Proximal L LE weakness. 3. Impaired activity tolerance.) Physical Therapy Goals: 1. Pt will be independent w/bed mobility. 2. Pt will safely and independently ambulate over household distances w/front-wheeled walker. 3. Pt will be independent w/basic HEP. Prognosis: Good Physical Therapy Plan: Pt will be seen 1-2x/day M-F while hospitalized to facilitate bed mobility, overall strength and activity tolerance. He will likely benefit from home physical therapy upon discharge.
== END 2017-02-06 16:00 | disposition home health service (06) | DRG 690 ==
LOC: ER 11:52 → MEDSURG 15:49
PROVIDERS: ADMIT Family Medicine; ATTEND Family Medicine
DX: N39.0 Urinary tract infection, site not specified (principal); R53.1 Weakness; R41.89 Other symptoms and signs involving cognitive functions and awareness; E03.9 Hypothyroidism, unspecified
CPT/HCPCS: 70450; 71020; 80053; 81001; 83880; 84443; 84484; 85027; 93005; 93010; 94640; 96365; 96366; 97530; 99223; 99239; 99285; J7613

== ENCOUNTER 2018-03-05 09:17 | Emergency (ER) | payer MEDICARE ==
[2018-03-05 10:09] LABS: BASO % 0.3 % (0-6); EOS % 7.4 % (0-6); GRAN % 54.2 % (47-80); HEMATOCRIT 39.5 % (42.0-52.0); HEMOGLOBIN 12.9 gm/dl (14.0-18.0); LYMPH % 24.3 % (16-45); MEAN CELL VOLUME 95.9 fl (81-97); MEAN CORPUSCULAR HEMOGLOBIN 31.3 pg (27-33); MEAN CORPUSCULAR HGB CONC 32.7 g/dl (32-36); MONO % 13.8 % (0-9); PLATELET COUNT 268 K/uL (130-400); RED BLOOD COUNT 4.12 M/uL (4.40-5.70); RED CELL DISTRIBUTION WIDTH 14.1 % (11.5-14.5); WHITE BLOOD COUNT W/O DIFF 7.6 K/uL (4.2-12.2)
[2018-03-05 10:22] LABS: BLOOD UREA NITROGEN 15 mg/dL (8-23); CREATININE 0.8 mg/dL (0.7-1.2); EST GLOMERULAR FILTRATION RATE > 60 mL/min
[2018-03-05 10:25] LABS: GLUCOSE,RANDOM 111 mg/dL (74-109)
[2018-03-05 10:27] LABS: ALB/GLOB RATIO 1.3 (1.1-1.8); ALT/SGPT 18 U/L (<41); AST/SGOT 17 U/L (10.0-50.0)
[2018-03-05 10:28] LABS: ALKALINE PHOSPHATASE 95 U/L (40-129)
--- NOTE | 2018-03-05 10:32 | Emergency Department Record ---
History of Present Illness - General Chief complaint: Rash Stated complaint: SHINGLES Time Seen by Provider: 03/05/18 09:46 Source: Patient, EMS Mode of Arrival: EMS Limitations: No limitations - History of Present Illness Initial comments: pt was brought in by ambulance because he has shingles and he wants them to be cured. he was dxd w shingles a few wks ago in [place] and was given valtrex. he finished the course and f/u w dr gaston who pt states would not give him any more medicine. pt states he is here because he wants me to make his shingles go away. he states he is not in pain but has some discomfort. MD complaint: Rash Onset/Timin -: Week(s) Location: Chest, Back, RUE Severity: Moderate Consistency: Constant Improves with: None Worsens with: None Associated symptoms: Denies other symptoms - Related Data Previous Rx's Medication Instructions Recorded Latanoprost 0.005% Opth Desire 1 drop OPTH QHS btl 09/26/16 [Xalatan] Tamsulosin HCl [Flomax] 0.4 mg PO DAILY #30 cap.er.24h 10/18/16 Allergies Allergy/AdvReac Type Severity Reaction Status Date / Time No Known Drug Allergies Allergy Verified 03/05/18 09:22 Travel Screening - Travel/Exposure Within Last 30 Days Have you traveled within the last 30 days?: No - Travel/Exposure Within Last Year Have you traveled outside the [place] in the last year?: No - Additonal Travel Details Have you been exposed to anyone with a communicable illness?: No - Travel Symptoms Symptom Screening: None Review of Systems Reviewed: No additional complaints except as noted below Constitutional: Reports: As per HPI. Denies: Chills, Fever, Malaise, Night sweats, Weakness, Weight change Eyes: Reports: As per HPI. Denies: Eye discharge, Eye pain, Photophobia, Vision change ENT: Reports: As per HPI. Denies: Congestion, Dental pain, Ear pain, Epistaxis , Hearing loss, Throat pain Respiratory: Reports: As per HPI. Denies: Cough, Dyspnea, Hemoptysis, Stridor, Wheezes Cardiovascular: Reports: As per HPI. Denies: Arrhythmia, Chest pain, Dyspnea on exertion, Edema, Murmurs, Orthopnea, Palpitations, Paroxysmal nocturnal dyspnea, Rheumatic Fever, Syncope Endocrine: Reports: As per HPI. Denies: Fatigue, Heat or cold intolerance, Polydipsia, Polyuria Gastrointestinal: Reports: As per HPI. Denies: Abdominal pain, Constipation, Diarrhea, Hematemesis, Hematochezia, Melena, Nausea, Vomiting Genitourinary: Reports: As per HPI. Denies: Dysuria, Frequency, Hematuria, Incontinence, Retention, Testicular pain, Testicular mass, Urgency Musculoskeletal: Reports: As per HPI. Denies: Arthralgia, Back pain, Gout, Joint swelling, Myalgia, Neck pain Skin: Reports: As per HPI, Rash. Denies: Bruising, Change in color, Change in hair/nails, Lesions, Pruritus Neurological: Reports: As per HPI. Denies: Abnormal gait, Confusion, Headache, Numbness, Paresthesias, Seizure, Tingling, Tremors, Vertigo, Weakness Psychiatric: Reports: As per HPI. Denies: Anxiety, Auditory hallucinations, Depression, Homicidal thoughts, Suicidal thoughts, Visual hallucinations Hematological/Lymphatic: Reports: As per HPI. 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 - ENDOCRINE Hx Endocrine Disorders: No Hx Diabetes: No Hx Thyroid Disease: No - MUSCULOSKELETAL Hx Musculoskeletal Disorders: Yes Hx Arthritis: Yes - PSYCH Hx Psych Problems: No - HEMATOLOGY/ONCOLOGY Hx Hematology/Oncology Disorders: No Family Medical History Any Significant Family History?: No Physical Exam - General General Appearance: Alert, Oriented x3, Cooperative, Mild distress - Head Head exam: Normal inspection - Eye Eye exam: Normal appearance, PERRL, EOMI Pupils: Normal accommodation - ENT ENT exam: Normal exam, Mucous membranes moist, Normal external ear exam, Normal orophraynx Ear exam: Normal external inspection. negative: External canal tenderness Nasal Exam: Normal inspection. negative: Discharge, Sinus tenderness Mouth exam: Normal external inspection, Tongue normal Teeth exam: Normal inspection. negative: Dental caries Throat exam: Normal inspection. negative: Tonsillar erythema, Tonsillar exudate - Neck Neck exam: Normal inspection, Full ROM. negative: Tenderness - Respiratory Respiratory exam: Normal lung sounds bilaterally, Chest wall tenderness. negative: Respiratory distress - Cardiovascular Cardiovascular Exam: Regular rate, Normal rhythm, Normal heart sounds - GI/Abdominal GI/Abdominal exam: Soft, Normal bowel sounds. negative: Tenderness - Rectal Rectal exam: Deferred - exam: Deferred - Extremities Extremities exam: Normal inspection, Full ROM, Normal capillary refill. negative: Tenderness - Back Back exam: Reports: Normal inspection, Full ROM. Denies: Muscle spasm, Rash noted, Tenderness - Neurological Neurological exam: Alert, CN II-XII intact, Normal gait, Oriented X3 - Psychiatric Psychiatric exam: Normal affect, Normal mood - Skin Skin exam: Dry, Intact, Normal color, Rash, Warm Distribution of rash: Chest, RUE Description of rash: Confluent, Crusting, Erythematous, Tenderness, Vesicular Course Vital Signs 03/05/18 09:26 Temperature 98.5 F Pulse Rate 62 Respiratory 20 Rate Blood Pressure 178/76 Pulse Ox 96 - Reevaluation(s) Reevaluation #1: 03/05/18 10:49 it was explained to pt that there is no more medicine to give to get rid of the shingles. he had already finished the course. he was told it will take a long time to get rid of them. dr gaston had already told him these things but they were repeated Medical Decision Making - Lab Data Result diagrams: 03/05/18 09:55 03/05/18 09:55 Lab Results 03/05/18 Range/Units 09:55 WBC 7.6 (4.2-12.2) K/uL RBC 4.12 L (4.40-5.70) M/uL Hgb 12.9 L (14.0-18.0) gm/dl Hct 39.5 L (42.0-52.0) % MCV 95.9 (81-97) fl MCH 31.3 (27-33) pg MCHC 32.7 (32-36) g/dl RDW 14.1 (11.5-14.5) % Plt Count 268 (130-400) K/uL MPV 9.0 (7.4-10.4) fl Gran % 54.2 (47-80) % Lymphocytes % 24.3 (16-45) % Monocytes % 13.8 H (0-9) % Eosinophils % 7.4 H (0-6) % Basophils % 0.3 (0-6) % Disposition Disposition: Discharge Clinical Impression: Shingles Qualifiers: Herpes zoster complications: without complications Qualified Code(s): B02.9 - Zoster without complications Disposition: Home, Self-Care Condition: (1) Good Instructions: Shingles (ED) Additional Instructions: follow up with family doctor. return sooner if worse. tylenol for pain Forms: Patient Portal Access Quality - Quality Measures Quality Measures: N/A - Blood Pressure Screening Does Patient Have Any of the Following: Active Dx of HTN Blood Pressure Classification: Hypertensive Reading Systolic Measurement: 178 Diastolic Measurement: 76 Screening for High Blood Pressure: Patient Exclusion, Hx of HTN [G9744]
[2018-03-05] MEDS ORDERED: ACETAMINOPHEN 500 MG TABLET PO ONE (11:20)
== END 2018-03-05 11:27 | disposition home or self-care (01) ==
LOC: ER 09:17
DX: B02.9 Zoster without complications (principal); I10 Essential (primary) hypertension; Z95.1 Presence of aortocoronary bypass graft
CPT/HCPCS: 80053; 85025; 99282

== ENCOUNTER 2018-05-04 10:02 | Emergency (ER) | payer MEDICARE ==
[2018-05-04] MEDS ORDERED: LIDOCAINE UROJECT 10 ML APPL MM ONE (10:27)
--- NOTE | 2018-05-04 10:36 | Emergency Department Record ---
History of Present Illness - General Chief complaint: Male Urogenital Problem Stated complaint: UTI Time Seen by Provider: 05/04/18 10:14 Source: Patient, EMS Mode of Arrival: EMS Limitations: No limitations - History of Present Illness Initial comments: The patient is here from a foster detention due to not wanting to take his medicines for 2 days and not eating as well as normal. He has a chronic Connelly catheter and the staff at the home thinks he has a UTI. There has been no discolored urine, fever, pain, vomiting, or new confusion. Dr. Marrero did see the patient a few days ago and thought he was doing very well. MD Complaint: Other -: Unknown Improves with: None Worsens with: None Indwelling catheter - Related Data Previous Rx's Medication Instructions Recorded Latanoprost 0.005% Opth Desire 1 drop OPTH QHS btl 09/26/16 [Xalatan] Tamsulosin HCl [Flomax] 0.4 mg PO DAILY #30 cap.er.24h 10/18/16 Allergies Allergy/AdvReac Type Severity Reaction Status Date / Time Sulfa (Sulfonamide Allergy PT UNSURE Verified 05/04/18 10:17 Antibiotics) OF REACTION Travel Screening - Travel/Exposure Within Last 30 Days Have you traveled within the last 30 days?: No Review of Systems Constitutional: Denies: Chills, Fever, Malaise Eyes: Denies: Eye discharge ENT: Denies: Congestion Respiratory: Denies: Cough, Dyspnea Cardiovascular: Denies: Chest pain Past Medical History - SOCIAL HISTORY Smoking Status: Never smoker Alcohol Use: None Drug Use: None - RESPIRATORY Hx Respiratory Disorders: No - CARDIOVASCULAR Hx Cardio Disorders: Yes Hx Abnormal EKG: Yes Hx Heart Attack: Yes Hx Hypertension: Yes Comment:: stents, bypass - NEURO Hx Neuro Disorders: No - GI Hx GI Disorders: No - Hx Genitourinary Disorders: Yes Hx Bladder Problem: Yes (retention, 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 negative: Tonsillar erythema, Tonsillar exudate - Neck Neck exam: Normal inspection, Full ROM. negative: Tenderness - Respiratory Respiratory exam: Normal lung sounds bilaterally. negative: Respiratory distress - Cardiovascular Cardiovascular Exam: Regular rate, Normal rhythm, Normal heart sounds - GI/Abdominal GI/Abdominal exam: Soft, Normal bowel sounds. negative: Rebound, Rigid, Tenderness - Extremities Extremities exam: Normal inspection, Full ROM, Normal capillary refill. negative: Tenderness - Neurological Neurological exam: Alert. negative: Altered, Motor sensory deficit, Oriented X3 (The patient is oriented to name, age, place but not date which is normal for him.) Course Vital Signs 05/04/18 10:14 Temperature 97.9 F Pulse Rate 83 Respiratory 20 Rate Blood Pressure 137/72 Pulse Ox 95 - Reevaluation(s) Reevaluation #1: The patient is doing very well at this time. His urine is very clear with the 2nd urine. His lab work is normal so we will discharge the patient to home. I did discuss the issues with Dr. Marrero who is the patient's PCP and he also does not believe the patient has a UTI and does not want him treated for it. We did change his Connelly without any difficulty and the urine is very clear. 05/04/18 11:44 05/04/18 11:47 Medical Decision Making - Data Complexity MDM Data: Labs Ordered and/or Reviewed - Lab Data Result diagrams: 05/04/18 11:10 05/04/18 11:10 Lab Results 05/04/18 Range/Units 10:10 Urine Color Cancelled Urine Appearance Cancelled Urine pH Cancelled Ur Specific [place] Cancelled Urine Protein Cancelled Urine Glucose (UA) Cancelled Urine Clinitest Cancelled Urine Ketones Cancelled Urine Blood Cancelled Urine Nitrite Cancelled Urine Bilirubin Cancelled Urine Ictotest Cancelled Prot Sulfosalicylic Acd Cancelled Urine Urobilinogen Cancelled Ur Leukocyte Esterase Cancelled Disposition Disposition: Discharge Clinical Impression: Urinary retention Disposition: Home, Self-Care Condition: (2) Stable Instructions: Connelly Catheter Placement and Care (ED) Additional Instructions: Please follow up with Dr. Marrero for further issues and return to the ER for any problems. Forms: Patient Portal Access Time of Disposition: 11:46 Quality - Quality Measures Quality Measures: N/A - Blood Pressure Screening View Details: Yes Does Patient Have Any of the Following: No Blood Pressure Classification: Pre-Hypertensive BP Reading Systolic Measurement: 137 Diastolic Measurement: 72 Screening for High Blood Pressure: < Pre-Hypertensive BP, F/U Documented > [ G8950] Pre-Hypertensive Follow-up Interventions: Referral to alternative/primary care provider.
[2018-05-04 11:22] LABS: HEMATOCRIT 34.8 % (42.0-52.0); HEMOGLOBIN 11.5 gm/dl (14.0-18.0); MEAN CELL VOLUME 95.3 fl (81-97); MEAN CORPUSCULAR HEMOGLOBIN 31.5 pg (27-33); MEAN PLATELET VOLUME 9.1 fl (7.4-10.4); PLATELET COUNT 238 K/uL (130-400); RED BLOOD COUNT 3.65 M/uL (4.40-5.70); RED CELL DISTRIBUTION WIDTH 13.6 % (11.5-14.5); WHITE BLOOD COUNT W/O DIFF 5.5 K/uL (4.2-12.2)
[2018-05-04 11:36] LABS: BLOOD UREA NITROGEN 12 mg/dL (8-23); EST GLOMERULAR FILTRATION RATE > 60 mL/min
[2018-05-04 11:39] LABS: GLUCOSE,RANDOM 124 mg/dL (74-109)
== END 2018-05-04 12:00 | disposition home or self-care (01) ==
LOC: ER 10:02
DX: R33.9 Retention of urine, unspecified (principal); I10 Essential (primary) hypertension; I25.2 Old myocardial infarction
CPT/HCPCS: 80048; 85027; 99283

== ENCOUNTER 2018-05-08 13:02 | Inpatient (IN) | payer MEDICARE ==
[2018-05-08] MEDS ORDERED: SODIUM CHLORIDE 0.9% 500 ML IV ONE (13:15)
[2018-05-08] MEDS ORDERED: ONDANSETRON HCL IV 4 MG/2 ML VIAL IV ONE (13:15)
[2018-05-08] MEDS ORDERED: ACETAMINOPHEN 1,000 MG/100 ML BTL IVPB ONE (13:17)
--- NOTE | 2018-05-08 13:36 | Emergency Department Record ---
History of Present Illness - General Chief Complaint: Fever Stated Complaint: FEVER Time Seen by Provider: 05/08/18 13:15 Source: Patient, EMS Mode of Arrival: Ambulatory Limitations: Altered mental status - History of Present Illness Initial Comments: The patient is here due to a one day hx of fever, weakness, nausea and vomiting x 1. He was well yesterday. The patient does have a chronic indwelling connelly catheter and did have it changed 4 days ago. Presently the patient denies any ONEAL , neck pain, cough, AP, back pain, CP or SOB. He does have significant dementia and is a very poor historian. MD Complaint: Fever, Malaise Onset/Timin -: Days(s) Maximum Temperature: 102.3 F Temperature Source: Axillary Associated Symptoms: Vomiting - Related Data Home Medications Medication Instructions Recorded Confirmed Last Taken Magnesium Hydroxide [Milk of 400 mg PO DAILY PRN 05/08/18 05/08/18 Unknown Magnesia] Multivitamin [Multi-Vitamin Daily] 1 each PO DAILY 05/08/18 05/08/18 Unknown Nitroglycerin [Nitrostat] 0.3 mg SL DAILY PRN 05/08/18 05/08/18 Unknown Quetiapine Fumarate [Seroquel] 25 mg PO DAILY 05/08/18 05/08/18 Unknown Sennosides/Docusate Sodium [Senna 2 each PO DAILY 05/08/18 05/08/18 Unknown Plus] Previous Rx's Medication Instructions Recorded Latanoprost 0.005% Opth Desire 1 drop OPTH QHS btl 09/26/16 [Xalatan] Tamsulosin HCl [Flomax] 0.4 mg PO DAILY #30 cap.er.24h 10/18/16 Allergies Allergy/AdvReac Type Severity Reaction Status Date / Time Sulfa (Sulfonamide Allergy PT UNSURE Verified 05/08/18 13:19 Antibiotics) OF REACTION Travel Screening - Travel/Exposure Within Last 30 Days Have you traveled within the last 30 days?: No - Travel/Exposure Within Last Year Have you traveled outside the [place] in the last year?: No - Additonal Travel Details Have you been exposed to anyone with a communicable illness?: No - Travel Symptoms Symptom Screening: None Review of Systems Constitutional: Reports: Chills, Fever Eyes: Denies: Eye discharge ENT: Denies: Congestion Respiratory: Denies: Cough Cardiovascular: Denies: Arrhythmia, Chest pain Endocrine: Reports: Fatigue Gastrointestinal: Denies: Abdominal pain Genitourinary: Denies: Dysuria Musculoskeletal: Denies: Arthralgia Skin: Denies: Bruising Past Medical History - SOCIAL HISTORY Smoking Status: Never smoker Alcohol Use: None Drug Use: None - RESPIRATORY Hx Respiratory Disorders: No - CARDIOVASCULAR Hx Cardio Disorders: Yes Hx Abnormal EKG: Yes Hx Heart Attack: Yes Hx Hypertension: Yes Comment:: stents, bypass - NEURO Hx Neuro Disorders: No - GI Hx GI Disorders: No - Hx Genitourinary Disorders: Yes Hx Bladder Problem: Yes (retention, 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 negative: Tonsillar erythema, Tonsillar exudate - Neck Neck exam: Normal inspection, Full ROM. negative: Tenderness - Respiratory Respiratory exam: Normal lung sounds bilaterally. negative: Respiratory distress - Cardiovascular Cardiovascular Exam: Regular rate, Normal rhythm, Systolic murmur (2/6 DOIR). negative: Normal heart sounds - GI/Abdominal GI/Abdominal exam: Soft, Normal bowel sounds. negative: Tenderness - Extremities Extremities exam: Normal inspection, Full ROM, Normal capillary refill. negative: Tenderness - Neurological Neurological exam: Abnormal gait, Alert. negative: Motor sensory deficit, Normal gait, Oriented X3 (The patient is oriented to name only.) - Skin Skin exam: Dry Course Vital Signs 05/08/18 13:14 Temperature 103.2 F H Pulse Rate 123 H Respiratory 20 Rate Blood Pressure 146/82 Pulse Ox 95 - Reevaluation(s) Reevaluation #1: The patient is doing a lot better at this time. He is much more alert and denies any pain or discomfort. His fever is reducing also. 05/08/18 14:49 Reevaluation #2: The patient is doing better at this time. His temp is improved and he is talking well and denies any complaints or pain. The patient's vitals are also improved. I did discuss the case with Dr. Ward and she did agree to the admission of the patient. 05/08/18 15:29 Medical Decision Making - Data Complexity MDM Data: Labs Ordered and/or Reviewed, X-Ray Ordered and/or Reviewed - Lab Data Result diagrams: 05/08/18 12:45 05/08/18 12:45 - Radiology Data Radiology results: Report reviewed (CXR: Neg for acute changes.) Disposition Disposition: Admit Clinical Impression: DNR (do not resuscitate), Weakness, Cognitive impairment UTI (urinary tract infection) Qualifiers: Urinary tract infection type: site unspecified Hematuria presence: with hematuria Qualified Code(s): N39.0 - Urinary tract infection, site not specified Disposition: Still a Patient at [facility] Decision to Admit: Admit from ER Decision to Admit Date: 05/08/18 Decision to Admit Time: 15:30 Accepting Physician: Vijay Time Discussed w/Accepting Physician: 15:30 Condition: (2) Stable Forms: Patient Portal Access Time of Disposition: 15:30 Quality - Quality Measures Quality Measures: N/A - Blood Pressure Screening View Details: Yes Does Patient Have Any of the Following: No Blood Pressure Classification: Pre-Hypertensive BP Reading Systolic Measurement: 146 Diastolic Measurement: 82 Screening for High Blood Pressure: < Pre-Hypertensive BP, F/U Documented > [ G8950] Pre-Hypertensive Follow-up Interventions: Referral to alternative/primary care provider.
[2018-05-08 13:42] LABS: BASO % 0.2 % (0-6); EOS % 0.6 % (0-6); HEMATOCRIT 38.9 % (42.0-52.0); LYMPH % 10.4 % (16-45); MEAN CELL VOLUME 95.3 fl (81-97); MEAN CORPUSCULAR HGB CONC 33.4 g/dl (32-36); MEAN PLATELET VOLUME 9.6 fl (7.4-10.4); MONO % 11.8 % (0-9); PLATELET COUNT 291 K/uL (130-400); RED BLOOD COUNT 4.08 M/uL (4.40-5.70); RED CELL DISTRIBUTION WIDTH 13.5 % (11.5-14.5)
[2018-05-08 13:43] LABS: URINE APPEARANCE CLEAR; URINE BILIRUBIN NEGATIVE (NEGATIVE); URINE BLOOD MODERATE (NEGATIVE); URINE COLOR YELLOW; URINE GLUCOSE (UA) NEGATIVE (NEGATIVE); URINE KETONE NEGATIVE (NEGATIVE); URINE LEUKOCYTE ESTERASE SMALL (NEGATIVE); URINE NITRITE POSITIVE (NEGATIVE); URINE PROTEIN NEGATIVE (NEGATIVE); URINE UROBILINOGEN 0.2 E.U./dL (0.20 - 1.00)
[2018-05-08 13:47] LABS: MEAN CORPUSCULAR HEMOGLOBIN 31.8 pg (27-33)
[2018-05-08 13:54] LABS: URINE BACTERIA 2+; URINE EPITHELIAL CELLS NONE SEEN (FEW); URINE RBC 16 - 25 (NONE SEEN); URINE WBC 16 - 20 (0-2/hpf)
[2018-05-08] MEDS ORDERED: CEFTRIAXONE SODIUM 1 GM in 0.9 % SODIUM CHLORIDE 100ML 100 ML IVPB ONE (13:57)
[2018-05-08 13:58] LABS: BLOOD UREA NITROGEN 11 mg/dL (8-23); CREATININE 0.9 mg/dL (0.7-1.2); EST GLOMERULAR FILTRATION RATE > 60 mL/min
[2018-05-08 13:59] LABS: TOTAL PROTEIN 7.4 g/dL (6.6-8.7)
[2018-05-08 14:01] LABS: GLUCOSE,RANDOM 130 mg/dL (74-109)
[2018-05-08 14:03] LABS: ALKALINE PHOSPHATASE 111 U/L (40-129); ALT/SGPT 22 U/L (<41); AST/SGOT 21 U/L (10.0-50.0)
[2018-05-08 14:04] LABS: LIPASE 24 U/L (13-60)
[2018-05-08 14:05] LABS: BILIRUBIN,DIRECT < 0.2 mg/dL (0-0.3)
[2018-05-08 14:26] LABS: C-REACTIVE PROTEIN 3.03 mg/dL (<0.5)
[2018-05-08] MEDS ORDERED: IBUPROFEN 100 MG/5 ML SUSP PO ONE (15:03)
[2018-05-08] MEDS ORDERED: 0.9 % SODIUM CHLORIDE 1,000 ML BAG IV ONE (15:48)
[2018-05-08] MEDS ORDERED: IBUPROFEN 400 MG TABLET PO PRN (16:12)
[2018-05-08] MEDS ORDERED: ACETAMINOPHEN 325 MG TAB PO PRN (16:12)
[2018-05-08] MEDS: 0.9 % SODIUM CHLORIDE 1000ML 1,000 ML IV PRN (17:04)
[2018-05-08] MEDS: CEFTRIAXONE SODIUM 1 GM in 0.9 % SODIUM CHLORIDE 100ML 100 ML IVPB SCH (17:05)
[2018-05-08] MEDS: LEVOFLOXACIN 500MG IVPB 500 MG/100 ML BAG IVPB SCH (17:33)
[2018-05-09] MEDS: CEFTRIAXONE SODIUM 1 GM in 0.9 % SODIUM CHLORIDE 100ML 100 ML IVPB SCH (04:14)
[2018-05-09] MEDS: 0.9 % SODIUM CHLORIDE 1000ML 1,000 ML IV PRN ×2 (04:20→15:48)
[2018-05-09 08:02] LABS: BASO % 0.2 % (0-6); EOS % 1.9 % (0-6); GRAN % 73.8 % (47-80); HEMATOCRIT 31.3 % (42.0-52.0); HEMOGLOBIN 10.1 gm/dl (14.0-18.0); LYMPH % 12.1 % (16-45); MEAN CELL VOLUME 96.9 fl (81-97); MEAN CORPUSCULAR HGB CONC 32.3 g/dl (32-36); PLATELET COUNT 216 K/uL (130-400); RED BLOOD COUNT 3.23 M/uL (4.40-5.70); RED CELL DISTRIBUTION WIDTH 13.3 % (11.5-14.5); WHITE BLOOD COUNT W/O DIFF 12.9 K/uL (4.2-12.2)
[2018-05-09 08:06] LABS: MEAN CORPUSCULAR HEMOGLOBIN 31.2 pg (27-33)
[2018-05-09 08:13] LABS: BLOOD UREA NITROGEN 12 mg/dL (8-23); CREATININE 0.9 mg/dL (0.7-1.2); EST GLOMERULAR FILTRATION RATE > 60 mL/min; GLUCOSE,RANDOM 107 mg/dL (74-109)
[2018-05-09] MEDS: TAMSULOSIN HCL 0.4 MG CAP.ER.24H PO SCH (09:50)
[2018-05-09] MEDS: LEVOTHYROXINE SODIUM 100 MCG TABLET PO SCH (09:51)
--- NOTE | 2018-05-09 10:54 | History & Physical ---
History of Present Illness - Date of Service Date of Service for History & Physical: 05/09/18 - History of Present Illness Admitting Diagnosis: 1. Acute Urosepsis with Pyrexia History of Present Illness: PMHx: hypothyroidism, DJD, neurogenic bladder (causing retention needing assisted connelly), h/o SD, HTN, Dementia, GERD. Pt doesn't remember why he was brought into the ER. Per ED Note: The patient presented to the ED due to a one day hx of fever, weakness, nausea and vomiting x 1. He was well yesterday. The patient does have a chronic indwelling connelly catheter and did have it changed 4 days ago. Presently the patient denies any ONEAL, neck pain, cough, AP, back pain, CP or SOB. He does have significant dementia and is a very poor historian. Vitals: P 123, RR 20, T 103.2, O2 95% on RA, BP 146/82 Labs: WBC 13, Procalcitonin 0.06, CRP 3.03, UA + for infection, cx pending. Imaging: CXR negative for acute process. Given: IVF, tylenol, rocephin, levaquin, zofran Pt admitted for likely urosepsis. Travel Screening - Travel/Exposure Within Last 30 Days Have you traveled within the last 30 days?: No - Travel/Exposure Within Last Year Have you traveled outside the [place] in the last year?: No - Additonal Travel Details Have you been exposed to anyone with a communicable illness?: No - Travel Symptoms Symptom Screening: None Review of Systems Constitutional: Reports: Chills, Fever Eyes: Denies: Eye discharge ENT: Denies: Congestion Respiratory: Denies: Cough Cardiovascular: Denies: Arrhythmia, Chest pain Endocrine: Reports: Fatigue Gastrointestinal: Denies: Abdominal pain Genitourinary: Denies: Dysuria Musculoskeletal: Denies: Arthralgia Skin: Denies: Bruising Past Medical History - SOCIAL HISTORY Smoking Status: Never smoker Alcohol Use: None Drug Use: None - RESPIRATORY Hx Respiratory Disorders: No - CARDIOVASCULAR Hx Cardio Disorders: Yes Hx Abnormal EKG: Yes Hx Heart Attack: Yes Hx Hypertension: Yes Comment:: stents, bypass - NEURO Hx Neuro Disorders: Yes Hx Dementia: Yes Comment:: Neurogenic bladder - GI Hx GI Disorders: Yes Hx Reflux: Yes - Hx Genitourinary Disorders: Yes Hx Bladder Problem: Yes (retention, connelly in place) Hx UTI: Yes (history) Comment:: retention, connelly in place, neurogenic bladder - ENDOCRINE Hx Endocrine Disorders: No Hx Diabetes: No Hx Thyroid Disease: Yes (hypothyroidism) - MUSCULOSKELETAL Hx Musculoskeletal Disorders: Yes Hx Arthritis: Yes - PSYCH Hx Psych Problems: No Comment:: schizophrenia - HEMATOLOGY/ONCOLOGY Hx Hematology/Oncology Disorders: No Family Medical History Any Significant Family History?: No H&P Meds/Allergies - Allergies Allergies: Allergies Allergy/AdvReac Type Severity Reaction Status Date / Time Sulfa (Sulfonamide Allergy PT UNSURE Verified 05/08/18 13:19 Antibiotics) OF REACTION - Home Medications Home Medications Medication Instructions Recorded Confirmed Last Taken Magnesium Hydroxide [Milk of 400 mg PO DAILY PRN 05/08/18 05/08/18 Unknown Magnesia] Multivitamin [Multi-Vitamin Daily] 1 each PO DAILY 05/08/18 05/08/18 Unknown Nitroglycerin [Nitrostat] 0.3 mg SL DAILY PRN 05/08/18 05/08/18 Unknown Quetiapine Fumarate [Seroquel] 25 mg PO DAILY 05/08/18 05/08/18 Unknown Sennosides/Docusate Sodium [Senna 2 each PO DAILY 05/08/18 05/08/18 Unknown Plus] Previous Rx's Medication Instructions Recorded Latanoprost 0.005% Opth Desire 1 drop OPTH QHS btl 09/26/16 [Xalatan] Tamsulosin HCl [Flomax] 0.4 mg PO DAILY #30 cap.er.24h 10/18/16 - Active Medications Active Medications: Current Medications Acetaminophen (Tylenol 325mg) 650 mg PO Q4H PRN PRN Reason: PAIN - MILD(1-4)/FEVER Levofloxacin/Dextrose (Levaquin 500mg Ivpb) 500 mg in 100 mls @ 125 mls/hr IVPB Q24H [facility] Stop: 05/13/18 16:01 Last Infusion: 05/08/18 19:08 Dose: Infused Sodium Chloride () 1,000 mls @ 100 mls/hr IV .Q10H PRN PRN Reason: LARGE VOLUME IV Last Admin: 05/09/18 04:20 Dose: 100 mls/hr Ceftriaxone Sodium 1 gm/ (Sodium Chloride) 100 mls @ 200 mls/hr IVPB Q12H [facility] Stop: 05/13/18 16:13 Last Admin: 05/09/18 04:14 Dose: 200 mls/hr Ibuprofen (Motrin 400mg) 400 mg PO Q6H PRN PRN Reason: PAIN - MILD (1-4) Levothyroxine Sodium (Synthroid) 125 mcg PO DAILY [facility] Last Admin: 05/09/18 09:51 Dose: 125 mcg Tamsulosin HCl (Flomax) 0.4 mg PO DAILY [facility] Last Admin: 05/09/18 09:50 Dose: 0.4 mg Physical Exam - Vital Signs Vital Signs: Vital Signs - Last 24 Hrs Temp Pulse Pulse Pulse Resp BP BP 05/09/18 10:00 98.2 F 68 16 122/61 05/09/18 06:00 98.8 F 76 16 138/53 05/08/18 22:00 98.6 F 70 16 134/59 05/08/18 21:00 70 87 18 05/08/18 18:00 98.1 F 87 18 99/44 05/08/18 17:50 87 20 05/08/18 16:30 83 20 05/08/18 16:12 100 F H 87 85 18 117/50 05/08/18 15:00 101.1 F H 99 H 22 95/48 05/08/18 14:16 101 H 28 H 113/59 05/08/18 13:43 111 H 28 H 112/64 05/08/18 13:14 103.2 F H 123 H 20 146/82 Pulse Ox 05/09/18 10:00 96 05/09/18 06:00 93 L 05/08/18 22:00 97 05/08/18 21:00 05/08/18 18:00 94 L 05/08/18 17:50 05/08/18 16:30 91 L 05/08/18 16:12 93 L 05/08/18 15:00 97 05/08/18 14:16 96 05/08/18 13:43 93 L 05/08/18 13:14 95 - General General Appearance: Alert, Oriented x3, Cooperative - Head Head exam: Atraumatic, Normocephalic - Eye Eye exam: Normal appearance - ENT ENT exam: Normal exam, Mucous membranes moist Ear exam: Normal external inspection Nasal Exam: Normal inspection Throat exam: Normal inspection. negative: Tonsillar erythema, Tonsillar exudate - Neck Neck exam: Normal inspection, Full ROM. negative: Tenderness - Respiratory Respiratory exam: Normal lung sounds bilaterally. negative: Respiratory distress - Cardiovascular Cardiovascular Exam: Regular rate, Normal rhythm. negative: Normal heart sounds - GI/Abdominal GI/Abdominal exam: Soft, Normal bowel sounds. negative: Tenderness - Extremities Extremities exam: Normal inspection, Full ROM. negative: Pedal edema, Tenderness - Neurological Neurological exam: Abnormal gait, Alert, Oriented X3, Other (pt talks very softly and mumbles at times. ). negative: Motor sensory deficit, Normal gait - Skin Skin exam: Dry, Erythema (dermatomal erythema noted on the R side of the chest. Mildly tender to palpation. ) Results - Labs Result Diagrams: 05/09/18 07:54 05/09/18 08:09 Labs Last 24 Hours: Laboratory Results - last 24 hr 05/08/18 05/08/18 05/08/18 12:45 12:45 12:45 WBC 13.0 H RBC 4.08 L Hgb 13.0 L Hct 38.9 L MCV 95.3 MCH 31.8 MCHC 33.4 RDW 13.5 Plt Count 291 MPV 9.6 Gran % 77.0 Lymphocytes % 10.4 L Monocytes % 11.8 H Eosinophils % 0.6 Basophils % 0.2 Sodium 139 Potassium 3.9 Chloride 98 Carbon Dioxide 27.0 Anion Gap 14.0 BUN 11 Creatinine 0.9 Estimated GFR > 60 Random Glucose 130 H Calcium 9.7 Total Bilirubin 0.70 Direct Bilirubin < 0.2 AST 21 ALT 22 Alkaline Phosphatase 111 C-Reactive Protein 3.03 H Total Protein 7.4 Albumin 4.0 Lipase 24 Procalcitonin 0.064 Urine Color Urine Appearance Urine pH Ur Specific [place] Urine Protein Urine Glucose (UA) Urine Ketones Urine Blood Urine Nitrite Urine Bilirubin Urine Urobilinogen Ur Leukocyte Esterase Urine RBC Urine WBC Ur Epithelial Cells Urine Bacteria 05/08/18 05/09/18 05/09/18 13:20 07:54 08:09 WBC 12.9 H RBC 3.23 L Hgb 10.1 L Hct 31.3 L MCV 96.9 MCH 31.2 MCHC 32.3 RDW 13.3 Plt Count 216 MPV 9.0 Gran % 73.8 Lymphocytes % 12.1 L Monocytes % 12.0 H Eosinophils % 1.9 Basophils % 0.2 Sodium 139 Potassium 4.2 Chloride 102 Carbon Dioxide 27.0 Anion Gap 10.0 BUN 12 Creatinine 0.9 Estimated GFR > 60 Random Glucose 107 Calcium 8.8 Total Bilirubin Direct Bilirubin AST ALT Alkaline Phosphatase C-Reactive Protein Total Protein Albumin Lipase Procalcitonin Urine Color Yellow Urine Appearance Clear Urine pH 8.0 Ur Specific [place] 1.020 Urine Protein Negative Urine Glucose (UA) Negative Urine Ketones Negative Urine Blood Moderate Urine Nitrite Positive H Urine Bilirubin Negative Urine Urobilinogen 0.2 Ur Leukocyte Esterase Small H Urine RBC 16 - 25 Urine WBC 16 - 20 Ur Epithelial Cells None seen Urine Bacteria 2+ VTE H&P Assessment - Risk for VTE Risk for VTE: Yes Risk Level: High Risk Assessment Date: 05/09/18 Risk Assessment Time: 11:51 VTE Orders Placed or Will Be Placed: Yes Plan - Inpatient Certification Inpatient Certification: Admit to inpatient care: Based on my medical assessment, after consideration of patient's risk factors (age, co-morbidities and patient presenting symptoms and acuity), I expect that this patient will remain in the hospital greater than or equal to two midnights and that the services needed warrant inpatient care because: Patient Risk Factors: [age, comorbidities, severity of signs and symptoms.] Estimated length of stay: [3] The patient may reasonably be expected to be discharged or transferred to a hospital within 96 hours after admission to [facility]. Services needed: [PT/OT, IV abx, rehydration, possibly case management] Post hospital care (if known): [] I certify that my determination is in accordance with my understanding of Medicare requirements for reasonable and necessary inpatient services. 05/09/18 11:12 05/09/18 11:13 - Detailed Diagnosis and Plan (1) Sepsis Current Visit: Yes Status: Acute Qualifiers: Sepsis type: sepsis due to unspecified organism Qualified Code(s): A41.9 - Sepsis, unspecified organism Base Code: A41.9 - SEPSIS, UNSPECIFIED ORGANISM Priority: High Comment: - On admission elevated WBC, tachycardic, altered mental status. - Likely 2/2 to catheter associated UTI, previous cx showed enterococcus so will D/C rocephin and continue levaquin to have adequate coverage. - Continue fluids at 100ml/hr - CXR neg for acute process. - Will continue levaquin daily until urine and blood cx's back. - Lactic acid pending. - CBC and BMP rpt in AM. (2) Shingles Current Visit: Yes Status: Acute Qualifiers: Herpes zoster complications: without complications Qualified Code(s): B02.9 - Zoster without complications Base Code: B02.9 - ZOSTER WITHOUT COMPLICATIONS Priority: Medium Comment: - Called daughter and she states that he was never treated with antivirals. - Will treat with antiviral therapy today. Acyclovir 800mg Q5H x 7-10 days. - Lidocaine patch for Pain. (3) Weakness Current Visit: No Status: Acute Base Code: R53.1 - WEAKNESS Comment: - PT/OT consulted (4) DNR (do not resuscitate) Current Visit: Yes Status: Acute Base Code: Z66 - DO NOT RESUSCITATE Priority: High (5) DVT prophylaxis Current Visit: Yes Status: Acute Base Code: [id number] - Priority: High Comment: - High risk given age, limited mobility, sepsis. Normal Cr. - lovenox ordered. - Disposition Pending PT/OT recs and resolution of infection
[2018-05-09] MEDS ORDERED: ACETAMINOPHEN 500 MG TABLET PO PRN (11:37)
[2018-05-09] MEDS: ACYCLOVIR 200 MG CAPSULE PO SCH ×4 (13:47→23:08)
[2018-05-09] MEDS: ENOXAPARIN 40 MG/0.4 ML SYR SQ SCH (13:47)
[2018-05-09] MEDS: LEVOFLOXACIN 500MG IVPB 500 MG/100 ML BAG IVPB SCH (15:46)
[2018-05-09] MEDS ORDERED: ACYCLOVIR 200 MG CAPSULE PO SCH (23:00)
[2018-05-10] MEDS: ACYCLOVIR 200 MG CAPSULE PO SCH ×4 (03:15→21:26)
[2018-05-10] MEDS: 0.9 % SODIUM CHLORIDE 1000ML 1,000 ML IV PRN (03:15)
[2018-05-10 06:30] LABS: BASO % 0.1 % (0-6); EOS % 3.8 % (0-6); GRAN % 65.6 % (47-80); HEMATOCRIT 31.5 % (42.0-52.0); HEMOGLOBIN 10.2 gm/dl (14.0-18.0); LYMPH % 15.9 % (16-45); MEAN CELL VOLUME 94.9 fl (81-97); MEAN CORPUSCULAR HEMOGLOBIN 30.7 pg (27-33); MEAN CORPUSCULAR HGB CONC 32.4 g/dl (32-36); MEAN PLATELET VOLUME 9.7 fl (7.4-10.4); MONO % 14.6 % (0-9); PLATELET COUNT 224 K/uL (130-400); RED BLOOD COUNT 3.32 M/uL (4.40-5.70); RED CELL DISTRIBUTION WIDTH 12.9 % (11.5-14.5); WHITE BLOOD COUNT W/O DIFF 10.2 K/uL (4.2-12.2)
[2018-05-10 06:49] LABS: BLOOD UREA NITROGEN 7 mg/dL (8-23); CREATININE 0.7 mg/dL (0.7-1.2); EST GLOMERULAR FILTRATION RATE > 60 mL/min; GLUCOSE,RANDOM 114 mg/dL (74-109)
--- NOTE | 2018-05-10 10:16 | Physician Progress Note ---
Subjective - Date Date of Physician Progress Note: 05/10/18 - Subjective Subjective Comment: Pt has no complaints today other than he would like to go home. He denies any pain today. Objective - Vital Signs Vital Signs: Vital Signs - Last 24 Hrs Temp Pulse Pulse Resp BP Pulse Ox 05/10/18 08:33 99.2 F 93 H 16 175/85 94 L 05/10/18 08:12 92 H 92 H 05/10/18 06:00 99.3 F 78 17 143/73 93 L 05/10/18 02:00 99.0 F 76 16 147/62 90 L 05/09/18 22:00 99.5 F 72 16 146/60 96 05/09/18 21:00 78 52 L 16 05/09/18 18:00 100.6 F H 52 L 16 140/55 93 L - General General Appearance: Alert, Oriented x3, Cooperative Limitations: Altered mental status - Head Head exam: Atraumatic, Normocephalic - Eye Eye exam: Normal appearance - ENT ENT exam: Normal exam, Mucous membranes moist Ear exam: Normal external inspection Nasal Exam: Normal inspection - Neck Neck exam: Normal inspection, Full ROM - Respiratory Respiratory exam: Normal lung sounds bilaterally. negative: Respiratory distress - Cardiovascular Cardiovascular Exam: Regular rate, Normal rhythm - GI/Abdominal GI/Abdominal exam: Soft, Normal bowel sounds. negative: Tenderness - Rectal Rectal exam: Deferred - exam: Deferred - Extremities Extremities exam: Normal inspection (except chronic venous stasis changes noted on the lower shins), Full ROM. negative: Pedal edema - Neurological Neurological exam: Abnormal gait, Alert, Oriented X3, Other (pt talks very softly and mumbles at times. ). negative: Motor sensory deficit, Normal gait - Skin Skin exam: Dry, Erythema (dermatomal erythema noted on the R side of the chest. Mildly tender to palpation. ) Assessment and Plan - Assessment and Plan (1) Sepsis Current Visit: Yes Status: Acute Qualifiers: Sepsis type: sepsis due to unspecified organism Qualified Code(s): A41.9 - Sepsis, unspecified organism Base Code: A41.9 - SEPSIS, UNSPECIFIED ORGANISM Priority: High Comment: - On admission elevated WBC, tachycardic, altered mental status. - Likely 2/2 to catheter associated UTI, previous cx showed enterococcus will D/ C'd rocephin and continue levaquin to have adequate coverage. - Continue fluids at 100ml/hr - CXR neg for acute process. - Will continue levaquin daily until urine and blood cx's back. - Lactic acid wnl - CBC and BMP rpt in AM. (2) Shingles Current Visit: Yes Status: Acute Qualifiers: Herpes zoster complications: without complications Qualified Code(s): B02.9 - Zoster without complications Base Code: B02.9 - ZOSTER WITHOUT COMPLICATIONS Priority: Medium Comment: - Called daughter and she states that he was never treated with antivirals. - Will treat with antiviral therapy. Acyclovir 800mg Q5H x 7-10 days. - Lidocaine patch for Pain. (3) Weakness Current Visit: No Status: Acute Base Code: R53.1 - WEAKNESS Comment: - PT/OT consulted (4) DNR (do not resuscitate) Current Visit: Yes Status: Acute Base Code: Z66 - DO NOT RESUSCITATE Priority: High (5) DVT prophylaxis Current Visit: Yes Status: Acute Base Code: [id number] - Priority: High Comment: - High risk given age, limited mobility, sepsis. Normal Cr. - lovenox ordered. - Disposition Disposition: Pending PT/OT recs and resolution of infection Results - Labs Result Diagrams: 05/10/18 05:45 05/10/18 05:45 Labs Last 24 Hours: Laboratory Results - last 24 hr 05/09/18 05/09/18 05/10/18 12:11 12:27 05:45 WBC 10.2 RBC 3.32 L Hgb 10.2 L Hct 31.5 L MCV 94.9 MCH 30.7 MCHC 32.4 RDW 12.9 Plt Count 224 MPV 9.7 Gran % 65.6 Lymphocytes % 15.9 L Monocytes % 14.6 H Eosinophils % 3.8 Basophils % 0.1 Sodium Potassium Chloride Carbon Dioxide Anion Gap BUN Creatinine Estimated GFR Random Glucose Lactic Acid 1.2 Cancelled Calcium 05/10/18 05:45 WBC RBC Hgb Hct MCV MCH MCHC RDW Plt Count MPV Gran % Lymphocytes % Monocytes % Eosinophils % Basophils % Sodium 135 L Potassium 3.6 Chloride 98 Carbon Dioxide 25.0 Anion Gap 12.0 BUN 7 L Creatinine 0.7 Estimated GFR > 60 Random Glucose 114 H Lactic Acid Calcium 8.5 L DVT/PE Assessment - Risk for VTE Risk for VTE: No Risk Level: High Risk Assessment Date: 05/09/18 Risk Assessment Time: 11:51 VTE Orders Placed or Will Be Placed: Yes - Active Medicaitons Current Medications: Current Medications Acetaminophen (Tylenol 500mg Tab) 1,000 mg PO Q6H PRN PRN Reason: FEVER Acyclovir (Zovirax) 800 mg PO Q5H [facility] Last Admin: 05/10/18 03:15 Dose: 800 mg Enoxaparin Sodium (Lovenox) 40 mg SQ DAILY [facility] Last Admin: 05/09/18 13:47 Dose: 40 mg Levofloxacin/Dextrose (Levaquin 500mg Ivpb) 500 mg in 100 mls @ 125 mls/hr IVPB Q24H [facility] Stop: 05/13/18 16:01 Last Infusion: 05/09/18 17:00 Dose: Infused Sodium Chloride () 1,000 mls @ 100 mls/hr IV .Q10H PRN PRN Reason: LARGE VOLUME IV Last Admin: 05/10/18 03:15 Dose: 100 mls/hr Ibuprofen (Motrin 400mg) 400 mg PO Q6H PRN PRN Reason: PAIN - MILD (1-4) Levothyroxine Sodium (Synthroid) 125 mcg PO DAILY [facility] Last Admin: 05/09/18 09:51 Dose: 125 mcg Lidocaine (Lidoderm) 1 each TOP DAILY [facility] Quetiapine Fumarate (Seroquel) 25 mg PO QHS [facility] Tamsulosin HCl (Flomax) 0.4 mg PO DAILY [facility] Last Admin: 05/09/18 09:50 Dose: 0.4 mg AMI Plan - Labs Result Diagrams: 05/10/18 05:45 05/10/18 05:45
[2018-05-10] MEDS: ENOXAPARIN 40 MG/0.4 ML SYR SQ SCH (10:24)
[2018-05-10] MEDS: LEVOTHYROXINE SODIUM 100 MCG TABLET PO SCH (10:24)
[2018-05-10] MEDS: TAMSULOSIN HCL 0.4 MG CAP.ER.24H PO SCH (10:24)
[2018-05-10] MEDS: LIDOCAINE 5% PATCH TOP SCH (10:26)
[2018-05-10] MEDS: LEVOFLOXACIN 500 MG TABLET PO SCH (17:20)
[2018-05-10] MEDS: LEVOFLOXACIN 500MG IVPB 500 MG/100 ML BAG IVPB SCH (17:39)
[2018-05-10] MEDS ORDERED: DIPHENHYDRAMINE HCL 25 MG CAPSULE PO ONE (18:53)
[2018-05-10] MEDS: QUETIAPINE FUMARATE 25 MG TABLET PO SCH ×3 (18:56→21:27)
[2018-05-11] MEDS: ACYCLOVIR 200 MG CAPSULE PO SCH ×4 (01:10→15:20)
[2018-05-11] MEDS: LEVOFLOXACIN 500 MG TABLET PO SCH (05:41)
[2018-05-11 06:58] LABS: HEMATOCRIT 30.8 % (42.0-52.0); HEMOGLOBIN 10.1 gm/dl (14.0-18.0); MEAN CELL VOLUME 94.2 fl (81-97); MEAN CORPUSCULAR HGB CONC 32.8 g/dl (32-36); MEAN PLATELET VOLUME 9.5 fl (7.4-10.4); PLATELET COUNT 239 K/uL (130-400); RED BLOOD COUNT 3.27 M/uL (4.40-5.70); RED CELL DISTRIBUTION WIDTH 12.8 % (11.5-14.5); WHITE BLOOD COUNT W/O DIFF 6.5 K/uL (4.2-12.2)
[2018-05-11 06:59] LABS: MEAN CORPUSCULAR HEMOGLOBIN 30.8 pg (27-33)
--- NOTE | 2018-05-11 07:10 | RADIOLOGY REPORT ---
EXAM: PORTABLE CHEST HISTORY: FEVER AND VOMITING. TECHNIQUE: Frontal view of the chest was obtained. Comparison: Two view chest radiograph 02/04/17. FINDINGS: The cardiac silhouette is unchanged in size from prior study. Slight prominence of the pulmonary vasculature likely accentuated by low lung volumes. No definite focal consolidation. No definable pleural fluid collection or visible pneumothorax. IMPRESSION: NO DEFINITE ACUTE LUNG FINDINGS. JOB NUMBER: [id number] MTDD
[2018-05-11 07:18] LABS: BLOOD UREA NITROGEN 6 mg/dL (8-23); CREATININE 0.7 mg/dL (0.7-1.2); EST GLOMERULAR FILTRATION RATE > 60 mL/min; GLUCOSE,RANDOM 105 mg/dL (74-109)
[2018-05-11] MEDS: TAMSULOSIN HCL 0.4 MG CAP.ER.24H PO SCH (09:07)
[2018-05-11] MEDS: LEVOTHYROXINE SODIUM 100 MCG TABLET PO SCH (09:08)
[2018-05-11] MEDS: ENOXAPARIN 40 MG/0.4 ML SYR SQ SCH (09:10)
[2018-05-11] MEDS: LIDOCAINE 5% PATCH TOP SCH (09:10)
--- NOTE | 2018-05-11 10:13 | Rehab Evaluation ---
Patient Information - Patient Information Diagnosis: urosepsis, Ordered Treatment: PT Evaluate and Treat Status: Initial Evaluation Past Medical/Surgical Hx: PAST MEDICAL/SURGICAL HISTORY Past Surgical History heart bypass 4 vessel, renal stents PMH - Respiratory Hx Respiratory Disorders No PMH - Cardiovascular Hx Cardiovascular Disorders Yes Hx Abnormal EKG Yes Hx Heart Attack Yes Hx Hypertension Yes Comment: stents, bypass PMH - Neuro Hx Neurological Disorders Yes Hx Dementia Yes Comment: Neurogenic bladder PMH - GI Hx Gastrointestinal Disorders Yes Hx Gastroesophageal Reflux Yes PMH - Hx Genitourinary Disorders Yes Hx Bladder Problem Yes: retention, connelly in place Hx Urinary Tract Infection Yes: history Comment: retention, ocnnelly in place, neurogenic bladder PMH - Endocrine Hx Endocrine Disorders No Hx Diabetes No Hx Thyroid Disease Yes: hypothyroidism Comment: Glaucoma PMH - Musculoskeletal Hx Musculoskeletal Disorders Yes Hx Arthritis Yes Comment: venous stasis lower extemities PMH - Psych Hx Psychiatric Problems No Comment: schizophrenia PMH - Hematology/Oncology Hx Hematology/Oncology No Disorders Premorbid Status: Detail (The patient's primary mobility prior to admission was with wheelchair.) Social History: Detail (The patient is a resident of [place] and was receiving Home PT prior to [facility] admission. The patient was requiring assist with transfers and ADL's.) Precautions: [place], Fall - Time With Patient Total Time Spent With Patient (Min): 30 Treatment Procedures: Detail (Initial Evaluation) Subjective Information - Subjective Information Per Patient (The patient had no complaints.) Objective Data - Mental Status Patient Orientation: Person (The patient did not know birthdate or age.), Place (The patient knew he was in ER.), Time (The patient knew current month and year and followed simple commands appropriately.) - ROM Within normal limits (The patient's LE AROM was WFL.) - Strength/Tone Not within normal limits (The patient's LE strength is as follows: R hip flexors 3-/5, L 3/5, bilateral hip extensors 3-/5, hip adductor and hip abductors 4-/5, L knee flexors and extensors 4-/5 R 4/5, bilateral ankle musculature 4-/5) - Bed Mobility Independent (Mod assist of 2 with supine to sit.) - Transfers Independent (Mod PA of 2 with sit to stand. Mod PA of one and CG of one with pivot transfer from bed to wheelchair with use of walker( patient had one hand on wheelchair on hand on walker).) - Balance Balance Sitting: Fair (The patient was able to sit without support but prefered use of hand to balance.) Balance Standing: Poor (The patient required support and use of walker to stand. ) - Gait Detail (The patient did not ambulate but did take two steps.) Therapy Assessment - Therapy Assessment Detail (The patient required Mod PA of 2 with bed mobility and transfers. The patient consistently followed simple commands. Feel the patient would benefit from ongoing PT to improve and decrease amount of assistance required with transfers. Recommend Home PT once patient is discharged from [facility].) Problem List - Problem List Physical Therapy Problem List: Detail (1) Decreased LE strength 2) Decreased balance in sitting and standing 3) Assistance with bed mobility and transfers 4 ) Non ambulatory) Goals - Goals Physical Therapy Goals: 1) The patient will acheive bed mobility with min PA of 1. 2) The patient will acheive sit to and from stand and pivot transfer with min/moderate PA of 1. 3) Increase LE strength 1/3 muscle grade to improve safety and LE stability for transfers. 4) Improve standing and sitting balance to improve overall functional status. Prognosis - Prognosis Moderate Plan - Plan Physical Therapy Plan: PT daily M-F for transfer training, bed mobility , balance and LE strengthening exercises.
--- NOTE | 2018-05-11 10:15 | Rehab Evaluation ---
Patient Information - Patient Information Diagnosis: acute urosepsis with pyrexia Ordered Treatment: OT Evaluate and Treat Status: Initial Evaluation Surgery: No Past Medical/Surgical Hx: PAST MEDICAL/SURGICAL HISTORY Past Surgical History heart bypass 4 vessel, renal stents PMH - Respiratory Hx Respiratory Disorders No PMH - Cardiovascular Hx Cardiovascular Disorders Yes Hx Abnormal EKG Yes Hx Heart Attack Yes Hx Hypertension Yes Comment: stents, bypass PMH - Neuro Hx Neurological Disorders Yes Hx Dementia Yes Comment: Neurogenic bladder PMH - GI Hx Gastrointestinal Disorders Yes Hx Gastroesophageal Reflux Yes PMH - Hx Genitourinary Disorders Yes Hx Bladder Problem Yes: retention, connelly in place Hx Urinary Tract Infection Yes: history Comment: retention, connelly in place, neurogenic bladder PMH - Endocrine Hx Endocrine Disorders No Hx Diabetes No Hx Thyroid Disease Yes: hypothyroidism Comment: Glaucoma PMH - Musculoskeletal Hx Musculoskeletal Disorders Yes Hx Arthritis Yes Comment: venous stasis lower extemities PMH - Psych Hx Psychiatric Problems No Comment: schizophrenia PMH - Hematology/Oncology Hx Hematology/Oncology No Disorders Premorbid Status: Detail (Pt lives at [facility] and staff assist with all ADLs/IADL. Pt uses a wheelchair for mobility but is able to transfer with assistance.) Precautions: [place], Fall - Time With Patient Total Time Spent With Patient (Min): 35 Treatment Procedures: Detail (OT eval low complexity) Subjective Information - Subjective Information Per Patient Objective Data - Pain Pain Present: No (Pt has no complaints of pain.) - Mental Status Patient Orientation: Person (Pt oriented to self, month, year, location and month of birthday. He stated year of birthday as "[birth year]". Pt able to follow all verbal commands. Speech was slurred and difficulty to understand.), Place - Visual Perception Appears within normal limits for therapeutic activities (Pt reports he wears glasses for reading.) - ROM Not within normal limits (Pardeep shoulder flexion limited to approximately 75 degrees, pardeep elbow, wrist and hand AROM functional.) - Strength/Tone Not within normal limits (Pardeep shoulder strength 3-/5, elbow flexion/extension and enrollment consultant 4+/5.) - Bed Mobility Needs Assist (Supine to sit with mod assist x 2.) - Transfers Needs Assist (Sit to stand with mod assist x 2 to walker. Pt able to shuffle step and pivot transferred to wheelchair with mod assist x 1.) - Balance Balance Sitting: Fair Balance Standing: Poor - Sensation Intact - Gait Detail (Pt is not ambulatory at this time.) - ADL's/IADL's Detail (Pt requires max assist for self cares at this time. He was able to wash face after set up.) Therapy Assessment - Therapy Assessment Detail (Pt presents with significant impairments with mobility and self cares. He would benefit from home OT/PT to maximize Ind and safety at [facility].) Problem List - Problem List Occupational Therapy Problem List: Detail (1. Decreased Ind with self cares. 2. Decreased Ind with functional mobility.) Goals - Goals Occupational Therapy Goals: 1. Pt will be Ind with grooming/hygiene tasks including oral hygiene, shaving tasks. 2. Pt will require min assist or less for supine to sit transfer. Prognosis - Prognosis Moderate Plan - Plan Occupational Therapy Plan: Recommend home OT/PT to address goals and problem list as above. OT will continue 1-2 times per week while pt is inpatient.
--- NOTE | 2018-05-11 14:33 | Discharge Summary ---
Providers Discharge Summary Date: 05/11/18 Date of admission: 05/08/18 16:11 Expected Date of Discharge: 05/11/18 Attending physician: DIAMANTE GARCIA Primary care physician: Gordon Marrero Consults: Consult Orders 05/09/18 11:23 Consult - Case Management Now Comment: Reason For Exam: dementia, placement? Physical Exam - Vital Signs Vital Signs: Vital Signs - Last 24 Hrs Temp Pulse Pulse Resp BP Pulse Ox 05/11/18 10:16 81 18 97 05/11/18 09:00 88 16 05/11/18 04:00 98.6 F 88 16 165/73 94 L 05/10/18 21:00 99 H 18 05/10/18 18:55 98.5 F 99 H 18 140/51 93 L 05/10/18 17:23 98 - General General Appearance: Alert, Oriented x3 (self and place), Cooperative Limitations: Altered mental status - Head Head exam: Atraumatic, Normocephalic - Eye Eye exam: Normal appearance - ENT ENT exam: Normal exam, Mucous membranes moist Ear exam: Normal external inspection Nasal Exam: Normal inspection Throat exam: Normal inspection. negative: Tonsillar erythema, Tonsillar exudate - Neck Neck exam: Normal inspection, Full ROM - Respiratory Respiratory exam: Normal lung sounds bilaterally. negative: Respiratory distress - Cardiovascular Cardiovascular Exam: Regular rate, Normal rhythm - GI/Abdominal GI/Abdominal exam: Soft, Normal bowel sounds. negative: Tenderness - Rectal Rectal exam: Deferred - exam: Deferred - Extremities Extremities exam: Normal inspection (except chronic venous stasis changes noted on the lower shins), Full ROM. negative: Pedal edema - Neurological Neurological exam: Abnormal gait, Alert, Other (pt talks very softly and mumbles at times. ). negative: Motor sensory deficit, Normal gait, Oriented X3 - Skin Skin exam: Dry, Erythema (dermatomal erythema noted on the R side of the chest. Mildly tender to palpation. ) Hospitalization - Hospitalization Admission Diagnosis: 1. Acute Urosepsis with Pyrexia - Problem List/Discharge Diagnosis (1) Sepsis Current Visit: Yes Status: Acute Discharge Diagnosis: Sepsis type: sepsis due to unspecified organism Qualified Code(s): A41.9 - Sepsis, unspecified organism Base Code: A41.9 - SEPSIS, UNSPECIFIED ORGANISM Comment: - On admission elevated WBC, tachycardic, altered mental status. - Likely 2/2 to catheter associated UTI, previous cx showed enterococcus will D/ C'd rocephin and continue levaquin to have adequate coverage. - CXR neg for acute process. - Cx showed enterococcus and pseudomonas. Sensitivities are pending. - Will continue levaquin and add ampicillin PO for additional enterococcus coverage. - WBC trended down to normal range, afebrile, back to baseline mentation. (2) Shingles Current Visit: Yes Status: Acute Discharge Diagnosis: Herpes zoster complications: without complications Qualified Code(s): B02.9 - Zoster without complications Base Code: B02.9 - ZOSTER WITHOUT COMPLICATIONS Comment: - Called daughter and she states that he was never treated with antivirals. - Will treat with antiviral therapy. Acyclovir 800mg Q5H x 7-10 days. - Lidocaine patch for Pain. (3) Weakness Current Visit: No Status: Acute Base Code: R53.1 - WEAKNESS Comment: - PT/OT consulted (4) DNR (do not resuscitate) Current Visit: Yes Status: Acute Base Code: Z66 - DO NOT RESUSCITATE (5) DVT prophylaxis Current Visit: Yes Status: Acute Base Code: [id number] - Comment: - High risk given age, limited mobility, sepsis. Normal Cr. - lovenox ordered. 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 ED COURSE: 05/08/18 Pt doesn't remember why he was brought into the ER. Per ED Note: The patient presented to the ED due to a one day hx of fever, weakness, nausea and vomiting x 1. He was well yesterday. The patient does have a chronic indwelling connelly catheter and did have it changed 4 days ago. Presently the patient denies any ONEAL, neck pain, cough, AP, back pain, CP or SOB. He does have significant dementia and is a very poor historian. Vitals: P 123, RR 20, T 103.2, O2 95% on RA, BP 146/82 Labs: WBC 13, Procalcitonin 0.06, CRP 3.03, UA + for infection, cx pending. Imaging: CXR negative for acute process. Given: IVF, tylenol, rocephin, levaquin, zofran Pt admitted for likely urosepsis. HOSPITAL COURSE: 05/08/18-05/11/18 Over the pt's hospital stay he was treated with levaquin given that enterococcus would not be covered by rocephin. His WBC's trended to normal, VS came down to normal range, and he remained afebrile. Upon discharge he was back to baseline mentation. His urine cx's showed enterococcus and pseudomonas. Sensitivities are still pending. Per pharmacy it was recommended that he have dual coverage for enterococcus with ampicillin. Will check on cx's tomorrow and call in script if additonal abx need to be added based on sensitivities. Furthermore the pt complained of CP that correlated with shingles located on the R side of his chest. His daughter stated that he was never treated so antivirals were also added during his stay. Procedures: Imaging and X-Rays 05/08/18 13:16 CHEST 1 VIEW [RAD] Stat Cardiology Procedures 05/08/18 16:12 Copier Technician .Continuous 05/10/18 19:55 EKG NOW Abnormal Labs: Abnormal Lab Results 05/08/18 05/08/18 05/08/18 Range/Units 12:45 12:45 12:45 WBC 13.0 H (4.2-12.2) K/uL RBC 4.08 L (4.40-5.70) M/uL Hgb 13.0 L (14.0-18.0) gm/dl Hct 38.9 L (42.0-52.0) % Lymphocytes % 10.4 L (16-45) % Monocytes % 11.8 H (0-9) % Monocytes (0-9) % Sodium (136-145) mmol/L Potassium (3.4-4.5) mmol/L BUN (8-23) mg/dL Random Glucose 130 H (74-109) mg/dL Calcium (8.8-10.2) mg/dL C-Reactive Protein 3.03 H (<0.5) mg/dL Urine Nitrite (NEGATIVE) Ur Leukocyte Esterase (NEGATIVE) 05/08/18 05/09/18 05/10/18 Range/Units 13:20 07:54 05:45 WBC 12.9 H (4.2-12.2) K/uL RBC 3.23 L 3.32 L (4.40-5.70) M/uL Hgb 10.1 L 10.2 L (14.0-18.0) gm/dl Hct 31.3 L 31.5 L (42.0-52.0) % Lymphocytes % 12.1 L 15.9 L (16-45) % Monocytes % 12.0 H 14.6 H (0-9) % Monocytes (0-9) % Sodium (136-145) mmol/L Potassium (3.4-4.5) mmol/L BUN (8-23) mg/dL Random Glucose (74-109) mg/dL Calcium (8.8-10.2) mg/dL C-Reactive Protein (<0.5) mg/dL Urine Nitrite Positive H (NEGATIVE) Ur Leukocyte Esterase Small H (NEGATIVE) 05/10/18 05/11/18 05/11/18 Range/Units 05:45 06:35 06:35 WBC (4.2-12.2) K/uL RBC 3.27 L (4.40-5.70) M/uL Hgb 10.1 L (14.0-18.0) gm/dl Hct 30.8 L (42.0-52.0) % Lymphocytes % (16-45) % Monocytes % (0-9) % Monocytes 15.0 H (0-9) % Sodium 135 L (136-145) mmol/L Potassium 3.3 L (3.4-4.5) mmol/L BUN 7 L 6 L (8-23) mg/dL Random Glucose 114 H (74-109) mg/dL Calcium 8.5 L (8.8-10.2) mg/dL C-Reactive Protein (<0.5) mg/dL Urine Nitrite (NEGATIVE) Ur Leukocyte Esterase (NEGATIVE) Condition at Discharge: (2) Stable VTE Discharge VTE Reason For No Overlap Therapy: Not Indicated Discharge Medications - Discharge Medications Prescriptions: Acyclovir [Zovirax] 800 mg PO Q5H #20 capsule Ampicillin Trihydrate 500 mg PO Q6H #28 capsule Levofloxacin [Levaquin] 500 mg PO DAILYFLUOR #3 tablet Lidocaine Patch [Lidoderm] 1 each TOP DAILY #5 patch Home Medications: Ambulatory Orders Amlodipine Besylate [Norvasc] 5 mg PO DAILY 09/07/15 [Last Taken 03/05/18] Clopidogrel Bisulfate [Plavix] 75 mg PO DAILY 09/07/15 [Last Taken 03/05/18] Levothyroxine Sodium [Synthroid] 125 mcg PO DAILY 09/07/15 [Last Taken 03/05/18] Lisinopril [Zestril] 20 mg PO DAILY 09/07/15 [Last Taken 03/05/18] Aspirin [Aspirin EC] 81 mg PO DAILY 09/23/16 [Last Taken 03/05/18] Atorvastatin Calcium [Lipitor] 40 mg PO DAILY 09/23/16 [Last Taken 03/05/18] Latanoprost 0.005% Opth Desire [Xalatan] 1 drop OPTH QHS btl 09/26/16 [Last Taken 03/05/18] Tamsulosin HCl [Flomax] 0.4 mg PO DAILY #30 cap.er.24h 10/18/16 [Last Taken 09/17] Donepezil HCl 10 mg PO DAILY 02/04/17 [Last Taken 03/05/18] Magnesium Hydroxide [Milk of Magnesia] 400 mg PO DAILY PRN 05/08/18 [Last Taken Unknown] Multivitamin [Multi-Vitamin Daily] 1 each PO DAILY 05/08/18 [Last Taken Unknown] Nitroglycerin [Nitrostat] 0.3 mg SL DAILY PRN 05/08/18 [Last Taken Unknown] Quetiapine Fumarate [Seroquel] 25 mg PO DAILY 05/08/18 [Last Taken Unknown] Sennosides/Docusate Sodium [Senna Plus] 2 each PO DAILY 05/08/18 [Last Taken Unknown] Acyclovir [Zovirax] 800 mg PO Q5H #20 capsule 05/11/18 [Last Taken Unknown] Ampicillin Trihydrate 500 mg PO Q6H #28 capsule 05/11/18 [Last Taken Unknown] Levofloxacin [Levaquin] 500 mg PO DAILYFLUOR #3 tablet 05/11/18 [Last Taken Unknown] Lidocaine Patch [Lidoderm] 1 each TOP DAILY #5 patch 05/11/18 [Last Taken Unknown] Discharge Plan - Discharge Instructions Activity at Discharge: As Per Physical Therapy Diet at Discharge: Advance to Usual Diet Additional Instructions: Pt should continue levaquin as prescribed tomorrow. Pt should start ampicillin as prescribed tomorrow. Pt should continue acyclovir as tomorrow. Lidocaine patch for pain on shingles as needed QD. Seroquel should only be given at night to prevent daytime sedation. Quality Measures - Quality Measures Quality Measures: Advance Directives, Documentation of Current Medications in Medical Record, Elder Maltreatment Screen and Follow-Up Plan, Screening for High Blood Pressure and F/U Documented - Current Medications Quality Measure: Measure #130: Documentation of Current Medications Documentation of Current Medications: <Current Medications Documented/Reviewed> [W9310] - Blood Pressure Screening Quality Measure: Screening for High Blood Pressure and Follow-Up Documented Does Patient Have Any of the Following: Active Dx of HTN Blood Pressure Classification: Pre-Hypertensive BP Reading Systolic Measurement: 146 Diastolic Measurement: 82 Screening for High Blood Pressure: Patient Exclusion, Hx of HTN [G9744] - Advance Directives Quality Measure: Measure #47: Care Plan Advance Directives Established: Yes Advance Directives Information Provided To Patient: Yes Advance Directives on File: No Living Will: No Power of Casino Floor Walker: Yes Power of Casino Floor Walker Name: meryl feliz Advance Care Planning: <Care Plan/Decision Maker Documented; Discussed & Documented> [5013F] - Elder Abuse Suspicion Index Screening: Elder Abuse Suspicion Index Screening Rely on people for bathing, dressing, shopping, banking, etc: Yes Prevented from getting food, clothes, medication, etc: No Made to feel shamed or threatened by someone: No Forced to sign papers or use money against will: No Feel afraid, touched in ways not wanted or hurt physically: No Poor eye contact, withdrawn, malnourished, cuts or bruises: No Screening Result: Negative result EASI Reference Information: Monica HUI, José C, Magalys D, Dimitris Biswas.Development and validation of a tool to assist physicians identification of elder abuse: The Elder Abuse Suspicion Index (EASI ). Journal of Elder Abuse and Neglect, 2008; 20 (3): 276-300. - Elder Maltreatment Screen Quality Measures: Elder Maltreatment Screen and Follow-Up Plan Elder Maltreatment Screen: <Negative, No Follow-Up Plan Required> [G8734]
[2018-05-11] MEDS ORDERED: REMOVE PATCH 1 EACH MISC TD SCH (22:00)
== END 2018-05-11 18:35 | DRG 700 ==
LOC: ER 13:02 → MEDSURG 16:11
PROVIDERS: ADMIT Internal Medicine; ATTEND Internal Medicine
DX: T83.511A Infection and inflammatory reaction due to indwelling urethral catheter, initial encounter (principal); N39.0 Urinary tract infection, site not specified; B95.2 Enterococcus as the cause of diseases classified elsewhere; B96.5 Pseudomonas (aeruginosa) (mallei) (pseudomallei) as the cause of diseases classified elsewhere; B02.9 Zoster without complications; R53.1 Weakness; E03.9 Hypothyroidism, unspecified; F03.90 Unspecified dementia, unspecified severity, without behavioral disturbance, psychotic disturbance, mood disturbance, and anxiety
CPT/HCPCS: 71045; 80048; 80076; 81001; 83605; 83690; 84145; 85025; 85027; 86140; 93005; 94760; 96365; 96366; 96375; 99223; 99233; 99239; 99285; J1650; J1956; J2405; J7030

== ENCOUNTER 2018-06-15 01:18 | Emergency (ER) | payer MEDICARE ==
--- NOTE | 2018-06-15 01:34 | Emergency Department Record ---
History of Present Illness - General Chief complaint: Male Urogenital Problem Stated complaint: PASSING BLOOD CLOT Time Seen by Provider: 06/15/18 01:28 Source: Patient Mode of Arrival: Ambulatory Limitations: No limitations - History of Present Illness Initial comments: 87 yo male presents EMS due to blood noted from or around his connelly catheter. He has a neurogenic bladder with chronic indwelling connelly. He denies any pain. There is no blood or clots in the bad on arrival but a tiny amount noted in his depends. No blood in the stools reported. He denies pain or current changes in his health. The leg bag has urine with no signs of obstruction. Onset/Timin -: Days(s) Location: Penis Radiation: None Severity: Mild Improves with: None Worsens with: None Indwelling catheter Reports: Blood in urine - Related Data Home Medications Medication Instructions Recorded Confirmed Last Taken Acetaminophen [Tylenol 500Mg Tab] 500 mg PO Q4H PRN 06/15/18 06/15/18 Unknown Memantine HCl [Namenda] 5 mg PO BID 06/15/18 06/15/18 Unknown Ondansetron HCl [Zofran] 4 mg PO Q4H PRN 06/15/18 06/15/18 Unknown Potassium Citrate [Potassium 20 meq PO DAILY 06/15/18 06/15/18 Unknown Citrate ER] Previous Rx's Medication Instructions Recorded Latanoprost 0.005% Opth Desire 1 drop OPTH QHS btl 09/26/16 [Xalatan] Clotrimazole 45 gm VG BID #1 cream.appl 06/15/18 Nitrofurantoin Monohyd/M-Cryst 100 mg PO BID #14 capsule 06/15/18 [Macrobid 100 mg Capsule] Allergies Allergy/AdvReac Type Severity Reaction Status Date / Time Sulfa (Sulfonamide Allergy PT UNSURE Verified 05/08/18 13:19 Antibiotics) OF REACTION Travel Screening - Travel/Exposure Within Last 30 Days Have you traveled within the last 30 days?: No Review of Systems Constitutional: Denies: Chills, Fever, Malaise, Weakness Eyes: Denies: Eye discharge ENT: Denies: Congestion, Throat pain Respiratory: Denies: Cough Cardiovascular: Denies: Chest pain, Syncope Endocrine: Denies: Fatigue Gastrointestinal: Denies: Abdominal pain, Diarrhea, Nausea, Vomiting Genitourinary: Denies: Dysuria, Frequency Musculoskeletal: Denies: Arthralgia, Back pain, Myalgia Skin: Denies: Bruising, Change in color, Rash Neurological: Denies: Headache Psychiatric: Denies: Anxiety Hematological/Lymphatic: Denies: Easy bleeding, Easy bruising Past Medical History - SOCIAL HISTORY Smoking Status: Never smoker Alcohol Use: None Drug Use: None - RESPIRATORY Hx Respiratory Disorders: No - CARDIOVASCULAR Hx Cardio Disorders: Yes Hx Abnormal EKG: Yes Hx Heart Attack: Yes Hx Hypertension: Yes Comment:: stents, bypass - NEURO Hx Neuro Disorders: Yes Hx Dementia: Yes Comment:: Neurogenic bladder - GI Hx GI Disorders: Yes Hx Reflux: Yes - Hx Genitourinary Disorders: Yes Hx Bladder Problem: Yes (retention, connelly in place) Hx UTI: Yes (history) Comment:: retention, connelly in place, neurogenic bladder - ENDOCRINE Hx Endocrine Disorders: No Hx Diabetes: No Hx Thyroid Disease: Yes (hypothyroidism) - MUSCULOSKELETAL Hx Musculoskeletal Disorders: Yes Hx Arthritis: Yes - PSYCH Hx Psych Problems: No Comment:: schizophrenia - HEMATOLOGY/ONCOLOGY Hx Hematology/Oncology Disorders: No Family Medical History Any Significant Family History?: No Physical Exam - General General Appearance: Alert, Oriented x3, Cooperative, No acute distress Limitations: No limitations - Head Head exam: Atraumatic, Normal inspection - Eye Eye exam: Normal appearance. negative: Conjunctival injection - ENT ENT exam: Normal exam - Neck Neck exam: Normal inspection - Respiratory Respiratory exam: Normal lung sounds bilaterally. negative: Respiratory distress, Rhonchi, Stridor, Wheezes - Cardiovascular Cardiovascular Exam: Regular rate, Normal rhythm, Normal heart sounds - GI/Abdominal GI/Abdominal exam: Soft. negative: Tenderness - Rectal Rectal exam: Heme (-) stool. negative: Black stool, Bloody stool, Fecal impaction, Hemorrhoids, Tenderness - exam: Circumcision, Other (proteinaceous material in connelly no clot). negative: Normal inspection (mild glans irritation, mild crusting and erythema) , Scrotal swelling, Testicular tenderness, Urethral discharge - Neurological Neurological exam: Alert - Psychiatric Psychiatric exam: Normal affect, Normal mood - Skin Skin exam: Dry, Intact, Normal color, Warm Course Vital Signs 06/15/18 01:22 Temperature 97.5 F L Pulse Rate [ 70 Pulse Ox Probe] Respiratory 18 Rate Blood Pressure 136/68 [Left Arm] Pulse Ox 98 - Reevaluation(s) Reevaluation #1: Rectal exam performed to exclude GI blood. Light brown stool. Heme negative. Positive control. The blood likely came from urethral irritation and mild balanitis 06/15/18 01:35 Disposition Disposition: Discharge Clinical Impression: Balanitis, Urinary tract infection Disposition: Home, Self-Care Condition: (1) Good Instructions: Balanitis (ED), Urinary Tract Infection in Men (ED) Additional Instructions: It appears that the bleeding is from irritation around the connelly catheter and end of the penis The connelly catheter was changed in the ER Gently clean the penis twice daily and thoroughly dry Fill the prescription for the Clotrimazole Cream Apply the cream twice daily after cleaning and drying Call your doctor for close follow up Return if you have fever, pain, or connelly catheter or drainage concerns. Take the Macrobid twice daily for the urinary infection A culture will be available in the next 3-4 days Prescriptions: Clotrimazole 45 gm VG BID #1 cream.appl Nitrofurantoin Monohyd/M-Cryst [Macrobid 100 mg Capsule] 100 mg PO BID #14 capsule Forms: Patient Portal Access Time of Disposition: 01:41 Quality - Quality Measures Quality Measures: N/A - Blood Pressure Screening Does Patient Have Any of the Following: Active Dx of HTN Blood Pressure Classification: Pre-Hypertensive BP Reading Systolic Measurement: 136 Diastolic Measurement: 68 Screening for High Blood Pressure: Patient Exclusion, Hx of HTN [G9744]
[2018-06-15 02:36] LABS: URINE APPEARANCE SL CLOUDY; URINE BILIRUBIN NEGATIVE (NEGATIVE); URINE BLOOD MODERATE (NEGATIVE); URINE COLOR YELLOW; URINE GLUCOSE (UA) NEGATIVE (NEGATIVE); URINE KETONE NEGATIVE (NEGATIVE); URINE LEUKOCYTE ESTERASE MODERATE (NEGATIVE); URINE NITRITE NEGATIVE (NEGATIVE); URINE PROTEIN NEGATIVE (NEGATIVE); URINE UROBILINOGEN 0.2 E.U./dL (0.20 - 1.00)
[2018-06-15 02:44] LABS: URINE BACTERIA 2+; URINE EPITHELIAL CELLS NONE SEEN (FEW); URINE WBC 21 - 35 (0-2/hpf)
[2018-06-15] MEDS ORDERED: NITROFURANTOIN MONO 100 MG CAPSULE PO ONE (02:53)
== END 2018-06-15 03:20 | disposition home or self-care (01) ==
LOC: ER 01:18
DX: N39.0 Urinary tract infection, site not specified (principal); R31.0 Gross hematuria; N48.1 Balanitis; I10 Essential (primary) hypertension
CPT/HCPCS: 81001; 99283